=== PATIENT | female | born 1950 | race Caucasian/White ===

== ENCOUNTER 2024-09-05 17:31 | Emergency (ER) | payer MEDICARE, SELFPAY ==
--- NOTE | 2024-09-05 17:52 | PD.EDSKIN ---
ED Skin Abcess FB-RME/HPI General Chief complaint: Skin/Abscess/Foreign Body Stated complaint: STAPLED LEFT INDEX FINGER Time Seen by Provider: 09/05/24 17:45 Arrival date/time: 09/05/24 17:31 74-year-old female presents the emergency from today stating that she was putting up [place] decorations and accidentally stapled her left index finger Limitations: no limitations Related Data Home Medications ?Medication ?Instructions ?Recorded ?Confirmed dronedarone 400 mg tablet (Multaq) 400 mg PO BID ##0 11/19/16 05/12/21 metoprolol succinate 25 mg 75 mg PO QDAY ##0 11/19/16 05/12/21 tablet,extended release 24 hr (Toprol XL) omeprazole 40 mg capsule,delayed 40 mg PO QDAY ##0 11/19/16 05/12/21 release dexlansoprazole 60 mg 60 mg PO QDAY 02/29/20 05/12/21 capsule,biphase delayed release (Dexilant) ferrous sulfate 325 mg (65 mg 325 mg PO QDAY 02/29/20 05/12/21 iron) tablet amlodipine 5 mg-olmesartan 40 mg 1 tab PO QDAY 04/03/21 05/12/21 tablet (Arthur) rivaroxaban 20 mg tablet (Xarelto) 20 mg PO QDAY 04/03/21 05/12/21 hydralazine 100 mg tablet 100 mg PO DAILY 05/12/21 05/12/21 Previous Rx's ?Medication ?Instructions ?Recorded doxycycline hyclate 100 mg tablet 100 mg PO BID #14 tabs 09/05/24 Allergies Allergy/AdvReac Type Severity Reaction Status Date / Time chlorhexidine Allergy Severe HIVES Verified 09/05/24 17:32 erythromycin base Allergy Severe HIVES Verified 09/05/24 17:32 levofloxacin [From Levaquin] Allergy Severe Redness of Verified 09/05/24 17:32 Skin Penicillins Allergy Severe SWELLING Verified 09/05/24 17:32 Sulfa (Sulfonamide Allergy Severe HIVES, Verified 09/05/24 17:32 Antibiotics) SWELLING Review of Systems Review of Systems Systems Reviewed: All systems reviewed, normal except as documented Constitutional Constitutional: Reports system reviewed and no additional complaints, except as documented, Denies fever(s) and Denies headache(s) Eyes Eyes: Reports system reviewed and no additional complaints, except as documented and Denies blurry vision ENT Ears, Nose, Mouth, and Throat: Reports system reviewed and no additional complaints, except as documented, Denies headache(s), Denies nasal congestion and Denies nasal discharge Cardiovascular Cardiovascular: Reports system reviewed and no additional complaints, except as documented, Denies chest pain and Denies dyspnea Respiratory Respiratory: Reports system reviewed and no additional complaints, except as documented, Denies chest congestion, Denies cough and Denies dyspnea Gastrointestinal Gastrointestinal: Reports system reviewed and no additional complaints, except as documented and Denies abdominal pain Integumentary/Breasts Skin/Breast: Reports system reviewed and no additional complaints, except as documented, Denies rash and Reports wounds (Puncture wound left index finger) Neurologic Neurologic: Reports system reviewed and no additional complaints, except as documented, Reports as per HPI and Denies headache(s) Past Medical History Past Medical History NEUROLOGIC: Negative Neurological Disorders CARDIAC: Negative Cardiac Disorders ED Exam General Limitations: Present no limitations General appearance: Present alert and in no apparent distress Head Head exam: Present atraumatic Eye Eye exam: Present normal appearance, PERRL and EOMI ENT ENT exam: Present normal exam, normal oropharynx and mucous membranes moist Neck Neck exam: Present normal inspection, full ROM and trachea midline Chest Chest inspection: Present normal inspection and symmetric chest wall rise Respiratory Respiratory exam: Present normal lung sounds bilaterally Cardiovascular Cardiovascular exam: Present regular rate, normal rhythm and normal heart sounds Abdominal Exam Abdominal exam: Present soft and normal bowel sounds Extremities Exam Extremities exam: Present full ROM, tenderness and other (Puncture wound left index finger) Back Exam Back exam: Present normal inspection and full ROM Neurological Exam Neurological exam: Present alert, oriented X3 and CN II-XII intact Psychiatric Psychiatric exam: Present normal affect and normal mood Skin Skin exam: Present warm, dry and mottled (Puncture wound left index finger) Course Quality Measures none Orders Category Date Time Status Wound Care NOW Care 09/05/24 17:52 Active Tet,Diphth,Pertuss(Acell)-Tdap [Boostrix Vacc] Med 09/05/24 17:52 Discontinued 0.5 ml IMI .ONCE ONE Vital Signs Vital signs: Vital Signs Temperature 97.8 F 09/05/24 17:57 Pulse Rate 60 09/05/24 17:57 Respiratory Rate 18 09/05/24 17:57 Blood Pressure 144/84 H 09/05/24 17:57 Pulse Oximetry (%) 99 09/05/24 17:57 Oxygen Delivery Method Room Air 09/05/24 17:57 O2 saturation 99% room air within normal limits Skin / Abscess / Foreign Body MDM Narrative MDM Narrative:: 74-year-old female presents the emergency from today stating that she was putting up [place] decorations and accidentally stapled her left index finger On exam patient has a stable left index finger palmar aspect Stable removed in its entirety Patient is full range of motion of digit Patient's tetanus updated Patient discharged home in no distress to follow-up with primary care doctor in the next 24 to 48 hours and for any worsening symptoms to return to the ER immediately Patient data External records reviewed:: [facility] previous records Clinical information provided by:: patient Social determinants that could affect healthcare access:: none Patient has the following chronic illnesses:: None How is presenting disease/condition affected by chronic disease/condition?: no chronic disease Evaluation data The following diagnostics were reviewed and interpreted by me:: other (specify) (N/A) Lab and/or radiology exams considered but not ordered:: Consider not ordered Interpretation Summary: N/A Medications / Prescriptions Medications or Prescriptions considered but not ordered:: Given Medication administrations:: Medication Administration History Discontinued Medications Diphtheria/Tetanus/Acell Pertussis (Diphth,Pertuss(Acell),Tet Vac 0.5 Ml Vial) 0.5 ml IMi .ONCE ONE Stop: 09/05/24 17:53 Last Admin: 09/05/24 18:03 Dose: 0.5 ml Documented By: OA Given Consultations Consultation(s) initiated? (list below): No Diagnosis Skin/Abscess Differential Diagnosis: abscess of skin or subcutaneous tissue and cellulitis Most likely diagnosis given after review of the tests above:: Puncture wound finger Admission Indicated Admission indicated?: not indicated Admission Request Was there a request for admission?: No Disposition Plan Disposition Plan: Discharge Discharge Attestation Discharge Attestation: The patient and all family members were given an opportunity to ask questions and understood the discharge instructions. Discharge instructions specifically effects, indications for sooner follow up or return to the emergency department, and the expected course of current diagnosis. Patient condition: Stable Discharge Plan Plan Patient Disposition: HOME (Self Care) Disposition Comment: Stable Prescriptions/Referrals Prescriptions/Med Rec: New doxycycline hyclate 100 mg tablet 100 mg PO BID Qty: 14 0RF No Action omeprazole 40 MG capsule,delayed release(DR/EC) 40 mg PO QDAY Qty: 0 metoprolol succinate [Toprol XL] 25 MG tablet extended release 24 hr 75 mg PO QDAY Qty: 0 Multaq 400 MG tablet 400 mg PO BID Qty: 0 hydralazine 100 mg tablet 100 mg PO DAILY Patient Comments: TAKE 1 TABLET BY MOUTH TWICE A DAY WITH FOOD ferrous sulfate 325 mg (65 mg iron) Tablet 325 mg PO QDAY Dexilant 60 mg Capsule,Biphase Delayed Releas 60 mg PO QDAY amlodipine-olmesartan [Arthur] 5-40 mg Tablet 1 tab PO QDAY Xarelto 20 mg Tablet 20 mg PO QDAY Hold Instructions: Resume on 05/14/21. 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
[2024-09-05 17:57] VITALS: BP 144/84; PULSE 60; RESP 18; TEMP 36.6; O2SAT 99; BMI 38.2
[2024-09-05] MEDS: DIPHTH,PERTUSS(ACELL),TET VAC 0.5 ML VIAL IMi (18:03)
== END 2024-09-05 18:59 | disposition home or self-care (01) ==
LOC: SERX 18:06
PROVIDERS: Emergency Provider Emergency Medicine; PCP Family Medicine
DX: S61.231A Puncture wound without foreign body of left index finger without damage to nail, initial encounter (principal); W26.8XXA Contact with other sharp object(s), not elsewhere classified, initial encounter; Y93.89 Activity, other specified; Z23 Encounter for immunization
CPT/HCPCS: 90471; 90715; 99282

== ENCOUNTER → 2024-09-13 | Outpatient (CLI) | payer MEDICARE, SELFPAY ==
[2024-09-13 09:02] LABS: Basophils % (Auto) 0 % (0-2.5); Eosinophils # (Auto) 0.2 Thou/mm3 (0.0-0.5); Eosinophils % (Auto) 4 % (0-10); Hematocrit 35.9 % (36.0-46.0); Hemoglobin 12.2 g/dL (12.0-16.0); Immature Granulocytes % (Auto) 0 % (0-0); Immature Granulocytes Auto 0.03 Thou/mm3 (0.00-0.00); Lymphocytes # (Auto) 1.3 Thou/mm3 (1.0-4.8); Lymphocytes % (Auto) 19 % (10-50); Mean Corpuscular Hemoglobin 29.5 pg (25.0-35.0); Mean Corpuscular Volume 87 fL (80-100); Monocytes # (Auto) 0.5 Thou/mm3 (0.0-0.8); Monocytes % (Auto) 7 % (0-12); Neutrophils # (Auto) 4.7 Thou/mm3 (1.8-7.7); Neutrophils % (Auto) 70 % (37-80); Nucleated Red Blood Cell % 0 /100 WBC (0); Platelet Count 210 Thou/mm3 (140-440); RDW Standard Deviation 42.9 fL (36.4-46.3); Red Blood Count 4.13 Miln/mm3 (4.00-5.20); White Blood Count 6.8 Thou/mm3 (3.6-11.0)
[2024-09-13 09:31] LABS: Parathyroid Hormone Intact 79.4 pg/ml (18.5-88.0)
[2024-09-13 09:33] LABS: Alanine Aminotransferase 15 U/L (10-49); Albumin, Serum 4.8 gm/dL (3.4-4.8); Albumin/Globulin Ratio 2.3 (1.2-2.2); Alkaline Phosphatase 77 U/L (46-116); Anion Gap 6 (7-16); Aspartate Amino Transferase 10 U/L (0-34); BUN/Creatinine Ratio 19 Ratio (12-20); Bilirubin,Total 0.3 mg/dL (0.3-1.2); Blood Urea Nitrogen 23 mg/dL (9-23); Calcium 10.1 mg/dL (8.3-10.6); Calcium (Corrected) 10.1 mg/dL (8.5-10.1); Carbon Dioxide 26.2 mMol/L (20.0-31.0); Cardiac Risk Estimate 4.6 RATIO (3.7-5.6); Chloride 108 mMol/L (98-107); Cholesterol 174 mg/dL (132-200); Creatinine (Component) 1.2 mg/dL (0.6-1.3); Globulin 2.1 gm/dL (2.3-3.5); Glucose 113 mg/dL (74-106); HDL Cholesterol 38 mg/dL (40-60); LDL Cholesterol,Calculated 112 mg/dL (0-130); Osmolality,Calculated 284 (275-295); Potassium 4.8 mMol/L (3.4-5.1); Sodium 140 mMol/L (136-145); Total Protein 6.9 gm/dL (5.7-8.2); Triglycerides 119 mg/dL (30-150); eGFR 47 See Note
[2024-09-13 09:49] LABS: Collection Type, Urine Clean Catch
[2024-09-13 10:25] LABS: Bacteria,Urine Rare; Bilirubin,Urine Negative (Negative); Blood,Urine Negative (Negative); Clarity,Urine Clear (Clear/Hazy); Color,Urine Lt-Yellow (Lt Yel-Yel); Glucose, Urine Negative (Negative); Ketones,Urine Negative (Negative); Leukocyte Esterase,Urine Negative (Negative); Nitrite,Urine Negative (Negative); Protein,Urine Negative (Neg - Trace); RBC,Urine 2 /hpf (0-3); Specific Gravity,Urine 1.015 (1.001-1.035); Squamous Epithelial Cell,Urine < 1 /hpf (0-5); Urobilinogen,Urine Negative mg/dL (0.0-1.0); WBC,Urine 2 /hpf (0-5)
[2024-09-13 10:36] LABS: Creatinine MALB Rnd Ur 68 mg/dL (30-125); Microalbumin, Random Urine < 3 mg/L (0-300)
== END | disposition home or self-care (01) ==
LOC: COPL 08:12
PROVIDERS: PCP Family Medicine; Referring Provider Internal Medicine; Visit Provider Internal Medicine
DX: I12.9 Hypertensive chronic kidney disease with stage 1 through stage 4 chronic kidney disease, or unspecified chronic kidney disease (principal); N18.30 Chronic kidney disease, stage 3 unspecified; E78.5 Hyperlipidemia, unspecified
CPT/HCPCS: 36415; 80053; 80061; 81001; 82043; 82570; 83970; 85025

== ENCOUNTER → 2024-09-21 | Outpatient (CLI) | payer MEDICARE, SELFPAY ==
--- NOTE | 2024-09-21 14:46 | XR_ITS ---
Examination: PA lateral chest 2 views TECHNIQUE: Upright PA lateral chest 2 views Exam date and time: September 21, 2024 1455 hours INDICATIONS: Chest pain today FINDINGS: Accentuation basilar bronchovascular markings Normal heart size No pneumonia or pulmonary edema IMPRESSION: Basilar bronchitis pattern
== END | disposition home or self-care (01) ==
LOC: SDIM 14:31
PROVIDERS: PCP Family Medicine; Referring Provider Nurse Practitioner Family; Visit Provider Nurse Practitioner Family
DX: R07.9 Chest pain, unspecified (principal)
CPT/HCPCS: 71046

== ENCOUNTER → 2024-11-27 | Outpatient (CLI) | payer MEDICARE, SELFPAY ==
--- NOTE | 2024-11-27 14:58 | XR_ITS ---
Examination: Duplex scan of the lower extremity, unilateral right complete Date and time of exam: November 27, 2024 1552 hrs. Indications: Right leg pain beginning one month ago, history acute thrombus right distal superficial femoral vein on venous Doppler July 12, 2024, patient is anticoagulated Technique: Duplex scan of the extremity veins using B-mode/grayscale imaging and Doppler spectral analysis and color flow Attention is directed to internal echogenicity, compression and augmentation involving these veins, color flow assessment, spectral analysis Findings: Major deep venous structures in the extremity demonstrate normal course and caliber. There is no evidence of deep vein thrombosis. Normal color flow and spectral analysis Popliteal cyst 31 mm Impression: Negative for DVT..
== END | disposition home or self-care (01) ==
PROVIDERS: PCP Family Medicine; Referring Provider Family Medicine; Visit Provider Family Medicine
DX: I82.411 Acute embolism and thrombosis of right femoral vein (principal)
CPT/HCPCS: 93971

== ENCOUNTER → 2024-12-10 | Outpatient (CLI) | payer MEDICARE, SELFPAY ==
--- NOTE | 2024-12-10 17:03 | XR_ITS ---
Examination: PA lateral chest 2 views Technique: Upright PA lateral chest 2 views Exam date and time: December 10, 2024 1610 hrs. Indications: Chest pain several days. Findings: Normal heart size Mild to moderate central vascular congestion No lobar pneumonia or pulmonary edema Impression: Mild to moderate central vascular congestion
--- NOTE | 2024-12-10 17:03 | XR_ITS ---
Examination: Thoracic spine 3 views Technique one AP lateral coned lateral upper dorsal spine 3 views Exam date and time: December 10, 2024 1610 hrs. Indications: Back pain years. Findings: Moderate diffuse thoracic degenerative disc disease No fracture Prominent thoracic spondylosis Impression: Moderate diffuse thoracic degenerative disc disease
--- NOTE | 2024-12-10 17:03 | XR_ITS ---
EXAMINATION: Cervical spine, 5 views Technique: Cervical spine AP, AP odontoid, lateral, bilateral obliques, 5 views Exam date and time: December 10, 2024 at 1610 hrs. Indications: Neck pain years. Findings: Adequate alignment cervical vertebral bodies No cervical fracture Moderate degenerative disc disease C2-C7 with mild diffuse bilateral neural foraminal stenosis Intact odontoid Impression: Moderate diffuse cervical degenerative disc disease
== END | disposition home or self-care (01) ==
LOC: SDIM 16:51
PROVIDERS: PCP Family Medicine; Referring Provider Family Medicine; Visit Provider Family Medicine
DX: M51.34 Other intervertebral disc degeneration, thoracic region (principal); R09.89 Other specified symptoms and signs involving the circulatory and respiratory systems; M50.30 Other cervical disc degeneration, unspecified cervical region
CPT/HCPCS: 71046; 72050; 72072

== ENCOUNTER 2024-12-21 11:13 | Inpatient (IN) | payer MEDICARE, SELFPAY ==
[2024-12-21] VITALS (13 sets, daily range): BP systolic 117–195; BP diastolic 86–125; PULSE 95–155; RESP 16–21; TEMP 36.6–37.3; O2SAT 91–96; BMI 38.2
--- NOTE | 2024-12-21 11:42 | XR_ITS ---
Examination: AP chest single view Technique one AP portable upright chest single view Exam date and time: 22/10/2024 1152 hours Comparison December 10, 2024 INDICATIONS: Chest pain today. FINDINGS: Normal heart size. Lungs are clear. The osseous structures are intact IMPRESSION: No active disease
--- NOTE | 2024-12-21 11:43 | PD.EDRME ---
Rapid Medical Screening Exam RME Arrival date/time: 12/21/24 11:13 74-year-old female history of A-fib hypertension, DVT presents to the ER with complaints of palpitations. I have greeted and performed a focused initial assessment of this patient. Initial appropriate labs ordered at this time. A comprehensive ED assessment and evaluation of the patient and analysis of all test and completion of medical decision making process will be conducted by additional ED provider. Chief Complaint: Arrhythmia/Palpitations Time Seen by Provider: 12/21/24 11:37 Vital signs: Vital Signs Temperature 98.2 F 12/21/24 11:35 Pulse Rate 131 H 12/21/24 11:35 Respiratory Rate 19 12/21/24 11:35 Blood Pressure 126/87 H 12/21/24 11:35 Pulse Oximetry (%) 95 12/21/24 11:35 Oxygen Delivery Method Room Air 12/21/24 11:35
[2024-12-21 12:22] LABS: Basophils % (Auto) 0 % (0-2.5); Eosinophils # (Auto) 0.1 Thou/mm3 (0.0-0.5); Eosinophils % (Auto) 1 % (0-10); Hematocrit 35.6 % (36.0-46.0); Hemoglobin 11.8 g/dL (12.0-16.0); Immature Granulocytes % (Auto) 0 % (0-0); Immature Granulocytes Auto 0.04 Thou/mm3 (0.00-0.00); Lymphocytes # (Auto) 1.4 Thou/mm3 (1.0-4.8); Lymphocytes % (Auto) 15 % (10-50); Mean Corpuscular HGB Conc 33.1 g/dl (31.0-37.0); Mean Corpuscular Hemoglobin 28.9 pg (25.0-35.0); Mean Corpuscular Volume 87 fL (80-100); Monocytes % (Auto) 10 % (0-12); Neutrophils # (Auto) 7.1 Thou/mm3 (1.8-7.7); Neutrophils % (Auto) 73 % (37-80); Nucleated Red Blood Cell % 0 /100 WBC (0); Platelet Count 174 Thou/mm3 (140-440); RDW Standard Deviation 43.3 fL (36.4-46.3); Red Blood Count 4.09 Miln/mm3 (4.00-5.20); White Blood Count 9.6 Thou/mm3 (3.6-11.0)
[2024-12-21 12:35] LABS: Prothrombin Time 11.4 Seconds (9.0-12.2)
[2024-12-21 12:40] LABS: B-Type Natriuretic Peptide 158 pg/mL (0-100)
--- NOTE | 2024-12-21 12:42 | XR_ITS ---
Examination: Duplex scan of the lower extremity, unilateral right complete Date and time of exam: December 21, 2024 1451 hours INDICATIONS: Right leg swelling and pain beginning one week ago Technique: Duplex scan of the extremity veins using B-mode/grayscale imaging and Doppler spectral analysis and color flow Attention is directed to internal echogenicity, compression and augmentation involving these veins, color flow assessment, spectral analysis Findings: Major deep venous structures in the extremity demonstrate normal course and caliber. There is no evidence of deep vein thrombosis. Normal color flow and spectral analysis Impression: Negative for DVT.. Small cystic areas in the mid medial thigh 18 x 22 mm, 27 x 24 mm, clinical correlation advised
--- NOTE | 2024-12-21 12:45 | PD.EDADULT ---
ED General RME/HPI General Chief complaint: Arrhythmia/Palpitations Stated complaint: SENT FOR HIGH HR Time Seen by Provider: 12/21/24 11:37 Arrival date/time: 12/21/24 11:13 RME / HPI RME / HPI narrative: Patient is a 74 years old female with past medical history of A-fib on Eliquis, hypertension, DVT, recent diagnosis of cellulitis presented to the ED complaining of palpitations. She reports she woke up today feeling her heart racing. She denies any chest pain, shortness of breath, abdominal pain, fever, chills, nausea, vomiting. She reports she has chronic A-fib and is on Eliquis and metoprolol, reports never had similar symptoms before. Patient was diagnosed with cellulitis of inner thigh yesterday but did not start antibiotics yet. She also reports she had DVT over the same area recently. Related Data Home Medications ?Medication ?Instructions ?Recorded ?Confirmed dronedarone 400 mg tablet (Multaq) 400 mg PO BID ##0 11/19/16 05/12/21 metoprolol succinate 25 mg 75 mg PO QDAY ##0 11/19/16 05/12/21 tablet,extended release 24 hr (Toprol XL) omeprazole 40 mg capsule,delayed 40 mg PO QDAY ##0 11/19/16 05/12/21 release dexlansoprazole 60 mg 60 mg PO QDAY 02/29/20 05/12/21 capsule,biphase delayed release (Dexilant) ferrous sulfate 325 mg (65 mg 325 mg PO QDAY 02/29/20 05/12/21 iron) tablet amlodipine 5 mg-olmesartan 40 mg 1 tab PO QDAY 04/03/21 05/12/21 tablet (Arthur) rivaroxaban 20 mg tablet (Xarelto) 20 mg PO QDAY 04/03/21 05/12/21 Held on 05/13/21. Instructions: Resume on 05/14/21. Resume Xarelto tomorrow hydralazine 100 mg tablet 100 mg PO DAILY 05/12/21 05/12/21 Previous Rx's ?Medication ?Instructions ?Recorded doxycycline hyclate 100 mg tablet 100 mg PO BID #14 tabs 09/05/24 Allergies Allergy/AdvReac Type Severity Reaction Status Date / Time chlorhexidine Allergy Severe HIVES Verified 12/21/24 11:16 erythromycin base Allergy Severe HIVES Verified 12/21/24 11:16 levofloxacin (From Levaquin) Allergy Severe Redness of Verified 12/21/24 11:16 Skin Penicillins Allergy Severe SWELLING Verified 12/21/24 11:16 Sulfa (Sulfonamide Allergy Severe HIVES, Verified 12/21/24 11:16 Antibiotics) SWELLING Review of Systems Review of Systems Systems Reviewed: All systems reviewed, normal except as documented ED Exam Narrative Physical exam: Gen: Well-developed and well-nourished female. HEENT: NCAT, PERRLA, EOMI, MMM, anicteric conjunctivae. CVS: normal S1 and S2. Irregularly irregular. No M/R/G. Resp: CTA B/L. No rhonchi, rales, crackles or wheezing. Abd: soft, obese, non-tender, non-distended. BS+ in all 4 quadrants. MSK: Good ROM in BUE & BLE. No edema or rash. Varicose veins over BLE. 5x5 cm hyperemic area over right inner thigh, tender to touch. Neuro: CN II-XII grossly intact. Strength 5/5 in BUE & BLE. Alert and oriented x3. Psych: appropriate mood and affect. Course Course Course Narrative: 1300: diltiazem 25 mg IV. Still Afib RVR, rate decreased to 140s. 1430: diltiazem 15 mg IV. Afib RVR at the rate 130s. 1500: diltiazem drip 10 mg/hr, non-titratable. Decision to admit. Quality Measures none Orders Category Date Time Status COVID-19 Screening Questionnaire NOW Care 12/21/24 14:31 Active [employer]er STAT Care 12/21/24 11:42 Active Decision to Admit X1 Care 12/21/24 14:31 Completed EKG (ED ONLY) *Do not use* NOW Care 12/21/24 11:42 Completed Insert IV STAT Care 12/21/24 11:42 Active EKG (ED Only) Stat Exams 12/21/24 11:42 Ordered US venous doppler LE RT Stat Exams 12/21/24 12:42 Completed XR chest 1V portable Stat Exams 12/21/24 11:42 Completed B-Type Natriuretic Peptide Stat Lab 12/21/24 12:14 Completed CBC Stat Lab 12/21/24 12:14 Completed Comprehensive Metabolic Panel Stat Lab 12/21/24 12:14 Completed Lipase Stat Lab 12/21/24 12:14 Completed Magnesium Stat Lab 12/21/24 12:14 Completed Prothrombin Time with INR Stat Lab 12/21/24 12:14 Completed Troponin I Stat Lab 12/21/24 12:14 Completed DILTIAZEM in D5W 125 MG Med 12/21/24 13:30 Active 125 mg in 125 ml IV 10 mg/hr Diltiazem Inj [Cardizem Inj] Med 12/21/24 13:23 Discontinued 15 mg IV X1 ONE Diltiazem Inj [Cardizem Inj] Med 12/21/24 12:42 Discontinued 25 mg IV X1 ONE Morphine Inj Med 12/21/24 13:46 Discontinued 2 mg IVP X1 ONE Vital Signs Vital signs: Vital Signs Temperature 98.2 F 12/21/24 11:35 Pulse Rate 131 H 12/21/24 11:35 Respiratory Rate 19 12/21/24 11:35 Blood Pressure 126/87 H 12/21/24 11:35 Pulse Oximetry (%) 95 12/21/24 11:35 Oxygen Delivery Method Room Air 12/21/24 11:35 Procedures -ED EKG Interpretation #1: Date of EK12/21/24 Time of EK:41 Rate: 160 Interpretation: Reviewed by me EKG Impression: Atrial fibrillation (RVR) and Non-specific ST-T MDM Patient data External records reviewed:: [facility] previous records Clinical information provided by:: patient and family Social determinants that could affect healthcare access:: none Patient has the following chronic illnesses:: A-fib on Eliquis, hypertension, DVT, recent diagnosis of cellulitis How is presenting disease/condition affected by chronic disease/condition?: caused by Evaluation data The following diagnostics were reviewed and interpreted by me:: lab results, radiology exam(s) and EKG tracing(s) Lab and/or radiology exams considered but not ordered:: CTA Interpretation Summary: Afib RVR Medications Medications considered but not ordered:: heparin drip Medication administrations:: Medication Administration History Acetaminophen (Acetaminophen 325 Mg Tablet) 650 mg PO Q6H PRN PRN Reason: Pain 1-3 and/or Fever >100.1 Stop: 01/20/25 14:59 Apixaban (Apixaban 2.5 Mg Tablet) 5 mg PO BID [facility] Stop: 01/20/25 20:59 Doxycycline Hyclate (Doxycycline 100 Mg Tablet) 100 mg PO BID [facility] Stop: 12/28/24 20:59 Diltiazem HCl (Diltiazem In D5w 125 Mg) 125 mg in 125 mls @ 10 mls/hr IV .[id number] [facility] Stop: 01/20/25 13:29 Last Admin: 12/21/24 14:40 Dose: 10 mg/hr, 10 mls/hr Documented By: STEVEN Ceftriaxone Sodium/Dextrose (Rocephin/D5w 1gm Iv Premix) 1 gm in 50 mls @ 100 mls/hr IV QDAY [facility] Stop: 12/28/24 15:10 Last Admin: 12/21/24 15:56 Dose: 100 mls/hr Documented By: STEVEN Ondansetron HCl (Ondansetron Inj 2 Mg/Ml Inj 2 Ml) 4 mg IV Q6H PRN; Protocol PRN Reason: NAUSEA OR VOMITING Stop: 01/20/25 14:59 Sennosides (Senna Tablet) 1 tab PO QDAY PRN; Protocol PRN Reason: constipation Stop: 01/20/25 14:59 Discontinued Medications Diltiazem HCl (Diltiazem Inj 5 Mg/Ml Vial 5 Ml) 25 mg IV X1 ONE Stop: 12/21/24 12:43 Last Admin: 12/21/24 13:01 Dose: 25 mg Documented By: SELVIN Comments: TO 18G IV TO RIGHT UPPER ARM Diltiazem HCl (Diltiazem Inj 5 Mg/Ml Vial 5 Ml) 15 mg IV X1 ONE Stop: 12/21/24 13:24 Last Admin: 12/21/24 14:28 Dose: 15 mg Documented By: STEVEN Hydromorphone HCl (Hydromorphone Inj 2 Mg/Ml Vial) 1 mg IVP X1 ONE Stop: 12/21/24 15:09 Last Admin: 12/21/24 15:12 Dose: Not Given Documented By: STEVEN Non-Admin Reason: Cancelled by Provider Hydromorphone HCl (Hydromorphone Inj 2 Mg/Ml Vial) 0.5 mg IVP X1 ONE Stop: 12/21/24 15:16 Last Admin: 12/21/24 15:30 Dose: Not Given Documented By: STEVEN Non-Admin Reason: Patient Refused Morphine Sulfate (Morphine Sulf Inj 10 Mg/Ml Vial) 2 mg IVP X1 ONE Stop: 12/21/24 13:47 Last Admin: 12/21/24 14:28 Dose: 2 mg Documented By: STEVEN Morphine Sulfate (Morphine Sulf Inj 10 Mg/Ml Vial) 2 mg IVP X1 ONE Stop: 12/21/24 16:03 Last Admin: 12/21/24 16:43 Dose: 2 mg Documented By: STEVEN as above Consultations Consultation(s) initiated? (list below): No Diagnosis Differential Diagnosis ED Complaint MDM: Afib RVR, SVT, Atrial flutter Most likely diagnosis given after review of the tests above:: Afib RVR Admission Indicated Admission indicated?: indicated Explain why admission is indicated or not indicated:: Patient was given 2 doses of diltiazem but did not convert to sinus rhythm or slow down heart rate, therefore was started on diltiazem drip none titratable. She will need to be admitted for further workup. Admission Request Was there a request for admission?: Yes Admission Attestation Admission request attestation: Discussed case with [] from Hospitalist service regarding admission. Discussed patients ED course, exam findings, labs, and radiology results. The Hospitalist [agrees,declines] to accept the patient for admission. Disposition Plan Disposition Plan: Admit Medical Decision Making MDM Narrative MDM Narrative: The patient is a 74-year-old female with a history of atrial fibrillation (chronic, on Eliquis), hypertension, recent DVT, and a new diagnosis of cellulitis who presented with palpitations and a racing heart upon waking. She has no prior episodes of similar symptoms despite her chronic A-fib. Grubbs findings include an EKG demonstrating atrial fibrillation with rapid ventricular response (RVR) at a rate of 160 bpm. Physical examination revealed an irregularly irregular rhythm, and a hyperemic, tender 5x5 cm area on the inner right thigh, consistent with cellulitis vs DVT. There is no evidence of respiratory distress, edema, or other concerning findings on exam. Patient has failed to convert or slow down after diltiazem IV x1 and was started on diltiazem drip 10 mg/hr. RLE US was ordered to rule out DVT. Differential Diagnosis Differential Diagnosis: Afib RVR, SVT, Atrial flutter Lab Data 12/21/24 12:14 12/21/24 12:14 Labs: Lab Results 12/21/24 Range/Units 12:14 WBC 9.6 (3.6-11.0) Thou/mm3 RBC 4.09 (4.00-5.20) Miln/mm3 Hgb 11.8 L (12.0-16.0) g/dL Hct 35.6 L (36.0-46.0) % MCV 87 (80-100) fL MCH 28.9 (25.0-35.0) pg MCHC 33.1 (31.0-37.0) g/dl RDW Std Deviation 43.3 (36.4-46.3) fL Plt Count 174 (140-440) Thou/mm3 Neut % (Auto) 73 (37-80) % Lymph % (Auto) 15 (10-50) % [place] % (Auto) 10 (0-12) % Eos % (Auto) 1 (0-10) % Baso % (Auto) 0 (0-2.5) % Neut # (Auto) 7.1 (1.8-7.7) Thou/mm3 Lymph # (Auto) 1.4 (1.0-4.8) Thou/mm3 [place] # (Auto) 1.0 H (0.0-0.8) Thou/mm3 Eos # (Auto) 0.1 (0.0-0.5) Thou/mm3 Baso # (Auto) 0.0 (0.0-0.2) Thou/mm3 Immature Gran # (Auto) 0.04 H (0.00-0.00) Thou/mm3 Absolute Nucleated RBC 0.00 (0.00-0.00) Thou/mm3 Immature Gran % 0 (0-0) % Nucleated RBC % 0 (0) /100 WBC PT 11.4 (9.0-12.2) Seconds INR 1.0 (0.9-1.3) Sodium 138 (136-145) mMol/L Potassium 4.2 (3.4-5.1) mMol/L Chloride 104 (98-107) mMol/L Carbon Dioxide 24.3 (20.0-31.0) mMol/L Anion Gap 10 (7-16) BUN 23 (9-23) mg/dL Creatinine 1.3 (0.6-1.3) mg/dL Estim Creat Clear Calc 44.8 L (>60) mL/min eGFR 43 L (60 - ) See Note BUN/Creatinine Ratio 18 (12-20) Ratio Glucose 131 H (74-106) mg/dL Calculated Osmolality 281 (275-295) Calcium 9.3 (8.3-10.6) mg/dL Corrected Calcium 9.3 (8.5-10.1) mg/dL Magnesium 2.1 (1.6-2.6) mg/dL Total Bilirubin 0.9 (0.3-1.2) mg/dL AST 12 (0-34) U/L ALT 10 (10-49) U/L Alkaline Phosphatase 69 (46-116) U/L Troponin I < 0.020 (0.0-0.045) ng/mL B-Natriuretic Peptide 158 H (0-100) pg/mL Total Protein 6.9 (5.7-8.2) gm/dL Albumin 4.4 (3.4-4.8) gm/dL Globulin 2.5 (2.3-3.5) gm/dL Albumin/Globulin Ratio 1.8 (1.2-2.2) Lipase 35 (12-53) U/L Critical Care Time Critical Care Time Critical Care Time: Yes Total Critical Care Time (min.): 45 Attestation: The high probability of sudden, clinically significant deterioration in the patient?s condition required the highest level of my preparedness to intervene urgently. The services I provided to this patient were to treat and/or prevent clinically significant deterioration. Services included the following: chart data review, reviewing nursing notes and/or old charts, documentation time, sap treasury consultant collaboration regarding findings and treatment options, medication orders and management, direct patient care, vital sign assessments and ordering, interpreting and reviewing diagnostic studies and lab tests. Aggregate critical care time includes only time during which I was engaged in work directly related to the patient?s care, as described above, whether at bedside or elsewhere in the Emergency Department. It did not include time spent performing other reported procedures or the services of residents, students, nurses or physician assistants. Discharge Plan Plan Patient Disposition: Admit Acute Care w/in Hospital Problem List Clinical Impression: Atrial fibrillation with rapid ventricular response MD Attestation MD Attestation The patient was seen by the PGY-2. I, the co-signing physician, also encountered and examined the patient remaining present during the entire ER visit for consultation as needed. I agree with the plan and documentation.
[2024-12-21 12:53] LABS: Alanine Aminotransferase 10 U/L (10-49); Albumin, Serum 4.4 gm/dL (3.4-4.8); Albumin/Globulin Ratio 1.8 (1.2-2.2); Alkaline Phosphatase 69 U/L (46-116); Anion Gap 10 (7-16); Aspartate Amino Transferase 12 U/L (0-34); BUN/Creatinine Ratio 18 Ratio (12-20); Bilirubin,Total 0.9 mg/dL (0.3-1.2); Blood Urea Nitrogen 23 mg/dL (9-23); Calcium 9.3 mg/dL (8.3-10.6); Calcium (Corrected) 9.3 mg/dL (8.5-10.1); Carbon Dioxide 24.3 mMol/L (20.0-31.0); Chloride 104 mMol/L (98-107); Creatinine (Component) 1.3 mg/dL (0.6-1.3); Estimated Creatinine Clearance 44.8 mL/min (>60); Globulin 2.5 gm/dL (2.3-3.5); Glucose 131 mg/dL (74-106); Lipase 35 U/L (12-53); Magnesium 2.1 mg/dL (1.6-2.6); Osmolality,Calculated 281 (275-295); Potassium 4.2 mMol/L (3.4-5.1); Sodium 138 mMol/L (136-145); Total Protein 6.9 gm/dL (5.7-8.2); Troponin I < 0.020 ng/mL (0.0-0.045); eGFR 43 See Note
[2024-12-21] MEDS: DILTIAZEM INJ 5 MG/ML VIAL 5 ML 25 MG IV (13:01)
--- NOTE | 2024-12-21 13:47 | PC.NURSE ---
RECEIVED VERBAL ORDER FROM DR CARPENTER FOR 2MG MORPHINE IV TO PRE-MEDICATE PATIENT BEFORE ULTRASOUND OF LEG.
[2024-12-21] MEDS: MORPHINE SULF INJ 10 MG/ML VIAL 2 MG IVP ×2 (14:28→16:43)
[2024-12-21] MEDS: DILTIAZEM INJ 5 MG/ML VIAL 5 ML 15 MG IV (14:28)
[2024-12-21] MEDS: DILTIAZEM in D5W 125 MG 125 MG/125 ML BAG 10 MG IV (14:40)
--- NOTE | 2024-12-21 15:03 | PD.RESHP ---
Documentation for date of: 12/21/24 HPI History of Present Illness Chief complaint: Palpitations History of present illness: 74-year-old female with past medical history of chronic atrial fibrillation, hypertension, history of DVT (right lower extremity) presenting to the ED on 12/21 with an episode of palpitations. Patient states that around 10:30 AM on 12/21 while she was outside she started feeling a rapid heart rate. Patient denies being in a stressful situation at that time, denies any chest pain, shortness of breath but does state that she felt somewhat dizzy and nauseous during the episode. She apparently checked her heart rate at home with a monitor which showed heart rate of 210. Patient has never felt such sensation in the past but does follow cardiology Dr. Ramila Lindo and EP driller's assistant Dr. Castro. Patient was recently at [facility] about 2 days ago for right lower extremity erythema; moreover, she states that they did an ultrasound and it was negative for any DVT at that time. Patient was discharged with doxycycline and Keflex for cellulitis but recently just picked them up. Apparently, patient was going to follow-up with Dr. Lindo yesterday but upon finding out that the patient has cellulitis told her to go back to the emergency room. Medical history: As listed Surgical history: Hysterectomy 1992, tonsillectomy 1969, back surgery 2012, coronary angiogram 2013 Allergies: Chlorhexidine and erythromycin causes hives, levofloxacin causes redness of skin, penicillin swelling, sulfa hives/swelling Medications: Pending official med rec, patient on metoprolol succinate 50 mg, hydralazine 100 mg 3 times daily, Eliquis 5 mg p.o. twice daily Family history: Noncontributory Social history: Patient lives at home, denies any alcohol, tobacco or illicit drug use. ROS: All 12 systems assessed and the patient denies unless otherwise stated in HPI In the ED, patient presented hypertensive with blood pressure fluctuating from a systolic of 120s to 190s and heart rates of 131, respiratory rate 19, afebrile and saturating 94 on 1 to 2 L of oxygen. Pertinent lab findings included WBC 9.6, hemoglobin 11.8 with MCV of 87, magnesium of 2.1, troponin less than 0.020, BNP of 158, lipase 35. Chest x-ray showed no active disease. EKG showed A-fib with RVR but no concerning ST changes were noted. Patient will be admitted for A-fib with RVR on diltiazem drip and treatment for cellulitis with IV antibiotics. Exam Vital Signs Temp Pulse Resp BP Pulse Ox O2 Del Method 98.0 F 107 H 21 H 117/88 H 94 L Room Air 12/21/24 14:15 12/21/24 14:40 12/21/24 14:15 12/21/24 14:40 12/21/24 14:15 12/21/24 11:55 Narrative Exam Physical Exam: GENERAL: Awake, answering questions appropriately, appears stated age HEENT: NC/AT. Moist mucosa. PERRLA/EOMI. CARDIO: Irregularly irregular, no obvious murmurs, no JVD. PULM: No coughing or visible SOB. Lungs CTA B/L but appears to be on 1 to 2 L of nasal cannula GI: Abdomen soft, NT/ND, +BS. SKIN/MSK/EXT: Patient has a right inner thigh erythematous lesion which is acutely tender to palpation. No wounds/rashes/edema/amputations noted. +Pedal pulses present B/L. NEURO: Oriented x3, no focal neurologic deficits, moves extremities x 4 Results: Labs 12/22/24 04:29 12/22/24 04:29 Labs: Short CBC 12/21/24 Range/Units 12:14 WBC 9.6 (3.6-11.0) Thou/mm3 Hgb 11.8 L (12.0-16.0) g/dL Hct 35.6 L (36.0-46.0) % Plt Count 174 (140-440) Thou/mm3 BMP 12/21/24 12:14 Sodium 138 Potassium 4.2 Chloride 104 Carbon Dioxide 24.3 BUN 23 Creatinine 1.3 Glucose 131 H Calcium 9.3 Cardiac Enzymes 12/21/24 Range/Units 12:14 Troponin I < 0.020 (0.0-0.045) ng/mL Liver Function 12/21/24 Range/Units 12:14 Total Bilirubin 0.9 (0.3-1.2) mg/dL AST 12 (0-34) U/L ALT 10 (10-49) U/L Alkaline Phosphatase 69 (46-116) U/L Albumin 4.4 (3.4-4.8) gm/dL Quality Measures Quality Measures none Advance care planning discussed with:: patient Medications Home Medications and Allergies Home Medications ?Medication ?Instructions ?Recorded ?Confirmed ?Type dronedarone 400 mg tablet (Multaq) 400 mg PO BID ##0 11/19/16 12/21/24 History metoprolol succinate 25 mg 50 mg PO QDAY ##0 11/19/16 12/21/24 History tablet,extended release 24 hr (Toprol XL) omeprazole 40 mg capsule,delayed 40 mg PO QDAY ##0 11/19/16 05/12/21 History release dexlansoprazole 60 mg 60 mg PO QDAY 02/29/20 12/21/24 History capsule,biphase delayed release (Dexilant) ferrous sulfate 325 mg (65 mg 325 mg PO QDAY 02/29/20 05/12/21 History iron) tablet amlodipine 5 mg-olmesartan 40 mg 1 tab PO QDAY 04/03/21 12/21/24 History tablet (Arthur) rivaroxaban 20 mg tablet (Xarelto) 20 mg PO QDAY 04/03/21 05/12/21 History Held on 05/13/21. Instructions: Resume on 05/14/21. Resume Xarelto tomorrow hydralazine 100 mg tablet 100 mg PO BID 05/12/21 12/21/24 History apixaban 5 mg tablet (Eliquis) 5 mg PO BID 12/21/24 12/21/24 History Allergies Allergy/AdvReac Type Severity Reaction Status Date / Time chlorhexidine Allergy Severe HIVES Verified 12/21/24 11:16 erythromycin base Allergy Severe HIVES Verified 12/21/24 11:16 levofloxacin (From Levaquin) Allergy Severe Redness of Verified 12/21/24 11:16 Skin Penicillins Allergy Severe SWELLING Verified 12/21/24 11:16 Sulfa (Sulfonamide Allergy Severe HIVES, Verified 12/21/24 11:16 Antibiotics) SWELLING Visit Medications Acetaminophen (Acetaminophen 325 Mg Tablet) 650 mg PO Q6H PRN PRN Reason: Pain 1-3 and/or Fever >100.1 Stop: 01/20/25 14:59 Apixaban (Apixaban 2.5 Mg Tablet) 5 mg PO BID [facility] Stop: 01/20/25 20:59 Diltiazem HCl (Diltiazem In D5w 125 Mg) 125 mg in 125 mls @ 10 mls/hr IV .[id number] [facility] Stop: 01/20/25 13:29 Last Admin: 12/21/24 14:40 Dose: 10 mg/hr, 10 mls/hr Ondansetron HCl (Ondansetron Inj 2 Mg/Ml Inj 2 Ml) 4 mg IV Q6H PRN; Protocol PRN Reason: NAUSEA OR VOMITING Stop: 01/20/25 14:59 Sennosides (Senna Tablet) 1 tab PO QDAY PRN; Protocol PRN Reason: constipation Stop: 01/20/25 14:59 Discontinued Medications Diltiazem HCl (Diltiazem Inj 5 Mg/Ml Vial 5 Ml) 25 mg IV X1 ONE Stop: 12/21/24 12:43 Last Admin: 12/21/24 13:01 Dose: 25 mg Diltiazem HCl (Diltiazem Inj 5 Mg/Ml Vial 5 Ml) 15 mg IV X1 ONE Stop: 12/21/24 13:24 Last Admin: 12/21/24 14:28 Dose: 15 mg Morphine Sulfate (Morphine Sulf Inj 10 Mg/Ml Vial) 2 mg IVP X1 ONE Stop: 12/21/24 13:47 Last Admin: 12/21/24 14:28 Dose: 2 mg Assessment & Plan Plan 74-year-old female with past medical history of chronic atrial fibrillation, hypertension, history of DVT (right lower extremity) presenting to the ED on 12/21 with an episode of palpitations about will be admitted for A-fib with RVR on diltiazem drip and treatment for cellulitis with IV antibiotics. #A-fib RVR #Chronic atrial fibrillation Patient has history of atrial fibrillation, on home metoprolol succinate 50 mg daily and Eliquis 5 mg p.o. twice daily Patient follows with driller's assistant Dr. Ramila Lindo and EP driller's assistant Dr. Castro Per history, patient started developing palpitations and elevated heart rate sometime around 10:30 AM on 12/21 while she was outside her house Patient denies having any concerning cardiac symptoms such as chest pain, shortness of breath, but does state that she that she was dizzy and had some nausea In the ED, patient was confirmed to have A-fib RVR with EKG but was within normal limits and BNP was 138 Patient given a x 1 diltiazem 25 mg, followed by x 1 diltiazem 50 mg which did not convert her; thus decision was made to start diltiazem drip Plan: Telemetry monitoring Continue diltiazem drip Will transition to p.o. metoprolol succinate 100 mg once the patient converts to sinus rhythm Continue patient's home Eliquis 5 mg p.o. twice daily #Cellulitis of the right lower extremity #History of DVT Apparently, patient was at [facility] 2 days ago with right lower extremity erythema Duplex ultrasound was completed at [facility] which did not show any signs of DVT and the patient was discharged with Keflex 500 mg and doxycycline 100 mg p.o. twice daily Patient presenting with persistent right lower extremity erythema and acute tenderness on palpation X2 morphine 2mg IV for pain Repeat ultrasound ordered showed small cystic areas in the mid medial thigh 18 x 22 mm, 27 x 24 mm Plan: CT w/o contrast of R lower ext Started patient on IV ceftriaxone and p.o. Doxy 100 mg twice daily Blood cultures ordered #Hypertension Per med rec, patient is on hydralazine 100 mg 3 times daily along with the metoprolol succinate 50 mg daily for blood pressure control Patient's blood pressure is fluctuating secondary to the A-fib with RVR Plan: library monitor as above Will consider restarting hydralazine 100 mg 3 times daily if necessary Hospital Management: Lines: PIV Diet: Cardiac Bowel: Senna as needed GI prophylaxis: Not needed DVT prophylaxis: Eliquis 5 mg p.o. twice daily coverage Dispo: Observation; IV diltiazem drip for A-fib RVR and IV antibiotics for cellulitis treatment Code: Full Patient seen and assessed with attending Dr. Valerio and senior resident Dr. Paulina Sauceda, PGY-1 Attending Provider Attestation/Addendum I, Alanna Valerio, DO, attest that I was physically present for the pearl portions of the service and evaluated the patient with the resident and I reviewed and discussed the case with the resident and agree with the resident's findings and plans of care as documented above Patient is a 74-year-old female with past medical history of A-fib on Eliquis, hypertension, DVT last year who presented to the ED with complaint of palpitations. She was feeling tachycardic this morning and denied any chest pain or shortness of breath. However, she did feel lightheaded. Patient was recently seen at [facility] yesterday for cellulitis of her distal thigh. Patient was prescribed antibiotics, but had only picked up her prescription this morning when she started to feel the palpitations. Patient was subsequently brought to the ED during which she was found to have A-fib with RVR with heart rate in the 200s. Patient does follow cardiology in [place]. Ultrasound of lower extremity at [facility] revealed no evidence of DVT. Patient was placed on a Cardizem drip in the ED and currently running in the 140s to 150s. However, patient is undergoing another repeat ultrasound of the cellulitic region to rule out any abscess. Patient is in a lot of pain and distress due to the pressure of the ultrasound probe. Suspect that the A-fib with RVR is likely secondary to infection. Will admit patient to telemetry for A-fib with RVR and treat her cellulitis with IV antibiotics. Will follow-up with imaging. Will switch her home Eliquis to full dose Lovenox in the event that patient may need any interventions in the event that an abscess is found on imaging. Will consider consulting surgery if any collections are found. Patient reports subjective fever and chills.
--- NOTE | 2024-12-21 15:09 | PC.NURSE ---
PATIENT COMPLAINING OF SEVERE PAIN 9/10 DURING ULTRASOUND OF LEG. INFORMED ER PROVIDER AND RECEIVED VERBAL ORDER 0.5 MG HYDROMORPHONE IV.
[2024-12-21] MEDS: cefTRIAXone/D5w 1gm IV premix 1 GM/50 ML BAG IV (15:56)
--- NOTE | 2024-12-21 16:03 | XR_ITS ---
Examination: CT right lower extremity, without contrast. 2-D sagittal reconstructions. 2-D coronal reconstructions. 3-D reconstructions. Date and time of exam:December 21, 2024 at 1650 hours INDICATIONS: Right eye pain 1 week, small cystic areas medial thigh 22 mm, 27 mm on venous Doppler study today CTDI: vol (mGy):18.8 DLP: (mGycm):1222 Technique: Multiple 1.25 mm axial sections of the cellulitis pattern in the soft tissue medial thigh Small fluid collections in the medial thigh, axial image 175, measuring 21 mm, 15 mm Larger have been obtained. 2-D sagittal and coronal reconstructions have been obtained. 3-D reconstructions have been obtained. Low dose protocols were performed. One or more of the following dose reduction techniques were used; automated exposure control, adjustment of the mA and/or KV according to patient size, use of iterative reconstruction technique. Findings: Cellulitis pattern in soft tissue medial thigh Mid medial thigh fluid collections axial image 175, 21 mm, 15 mm Distal medial thigh fluid collections, axial image 195 25 mm, 27 mm Cortex of the femoral shaft intact No endosteal scalloping Negative for osteomyelitis IMPRESSION: Cellulitis pattern of soft tissue medial thigh Multiple medial thigh fluid collections including mid thigh 21 mm, 15 mm distal thigh 25 mm 27 mm most consistent with small abscesses, clinical correlation advised
[2024-12-21] MEDS: ENOXAPARIN SOD INJ 100 MG/ML SYRINGE SC (21:56)
[2024-12-21] MEDS: DOXYCYCLINE 100 MG TABLET PO (21:57)
[2024-12-22] VITALS (9 sets, daily range): BP systolic 116–150; BP diastolic 62–86; PULSE 97–127; RESP 12–20; TEMP 36.1–36.9; O2SAT 94–96; BMI 38.9
[2024-12-22] MEDS: DILTIAZEM in D5W 125 MG 125 MG/125 ML BAG 10 MG IV ×2 (01:52→14:33)
[2024-12-22 05:53] LABS: Basophils % (Auto) 0 % (0-2.5); Eosinophils # (Auto) 0.2 Thou/mm3 (0.0-0.5); Eosinophils % (Auto) 2 % (0-10); Hematocrit 37.7 % (36.0-46.0); Hemoglobin 12.6 g/dL (12.0-16.0); Immature Granulocytes % (Auto) 0 % (0-0); Immature Granulocytes Auto 0.02 Thou/mm3 (0.00-0.00); Lymphocytes # (Auto) 2.3 Thou/mm3 (1.0-4.8); Lymphocytes % (Auto) 25 % (10-50); Mean Corpuscular HGB Conc 33.4 g/dl (31.0-37.0); Mean Corpuscular Hemoglobin 29.1 pg (25.0-35.0); Mean Corpuscular Volume 87 fL (80-100); Monocytes # (Auto) 0.7 Thou/mm3 (0.0-0.8); Monocytes % (Auto) 7 % (0-12); Neutrophils % (Auto) 65 % (37-80); Nucleated Red Blood Cell % 0 /100 WBC (0); Platelet Count 215 Thou/mm3 (140-440); RDW Standard Deviation 42.3 fL (36.4-46.3); Red Blood Count 4.33 Miln/mm3 (4.00-5.20); White Blood Count 9.1 Thou/mm3 (3.6-11.0)
[2024-12-22 06:31] LABS: Alanine Aminotransferase < 7 U/L (10-49); Albumin, Serum 4.3 gm/dL (3.4-4.8); Albumin/Globulin Ratio 1.7 (1.2-2.2); Alkaline Phosphatase 68 U/L (46-116); Anion Gap 11 (7-16); Aspartate Amino Transferase 12 U/L (0-34); BUN/Creatinine Ratio 15 Ratio (12-20); Bilirubin,Total 0.6 mg/dL (0.3-1.2); Blood Urea Nitrogen 18 mg/dL (9-23); Calcium 9.4 mg/dL (8.3-10.6); Calcium (Corrected) 9.4 mg/dL (8.5-10.1); Chloride 104 mMol/L (98-107); Creatinine (Component) 1.2 mg/dL (0.6-1.3); Globulin 2.5 gm/dL (2.3-3.5); Glucose 114 mg/dL (74-106); Osmolality,Calculated 280 (275-295); Potassium 4.2 mMol/L (3.4-5.1); Sodium 139 mMol/L (136-145); Total Protein 6.8 gm/dL (5.7-8.2); eGFR 47 See Note
[2024-12-22] MEDS: METOPROLOL SUCCINATE XL 25 MG TABCR 50 MG PO (09:10)
[2024-12-22] MEDS: cefTRIAXone/D5w 1gm IV premix 1 GM/50 ML BAG IV (09:45)
[2024-12-22] MEDS: ENOXAPARIN SOD INJ 100 MG/ML SYRINGE SC ×2 (09:50→20:25)
[2024-12-22] MEDS: DOXYCYCLINE 100 MG TABLET PO ×2 (09:50→20:25)
--- NOTE | 2024-12-22 12:31 | PD.SURCONS ---
HPI Consult details Consult date: 12/22/24 Reason for consultation narrative: Right thigh fluid collections History of present illness: 74-year-old female with history of hypertension, atrial fibrillation on Eliquis has had right thigh DVT on July 2024. Her recent ultrasounds did not show evidence of DVT. She was admitted with palpitation. She has developed cellulitis on the medial aspect of right thigh with significant pain. She was seen at [facility] and she was given oral antibiotic and discharged. She continues to have erythema and pain of right inner thigh. CT scan revealed 2 small fluid collections. She denies history of insect or spider bites. She also denies history of trauma. Review of Systems Constitutional Constitutional: Denies chills and Denies fever(s) Cardiovascular Cardiovascular: Denies chest pain Respiratory Respiratory: Denies cough Gastrointestinal Gastrointestinal: Denies abdominal pain, Denies nausea and Denies vomiting Musculoskeletal Comments: Right thigh pain Hematologic/Lymphatic Hematologic/Lymphatic: Denies easy bleeding Past Medical History Surgical History OTHER SURGICAL HX: Left total knee replacement, hysterectomy, appendectomy, tonsillectomy, back surgery Meds Home Medications and Allergies Home Medications ?Medication ?Instructions ?Recorded ?Confirmed ?Type dronedarone 400 mg tablet (Multaq) 400 mg PO BID ##0 11/19/16 12/21/24 History metoprolol succinate 25 mg 50 mg PO QDAY ##0 11/19/16 12/21/24 History tablet,extended release 24 hr (Toprol XL) omeprazole 40 mg capsule,delayed 40 mg PO QDAY ##0 11/19/16 05/12/21 History release dexlansoprazole 60 mg 60 mg PO QDAY 02/29/20 12/21/24 History capsule,biphase delayed release (Dexilant) ferrous sulfate 325 mg (65 mg 325 mg PO QDAY 02/29/20 05/12/21 History iron) tablet amlodipine 5 mg-olmesartan 40 mg 1 tab PO QDAY 04/03/21 12/21/24 History tablet (Arthur) rivaroxaban 20 mg tablet (Xarelto) 20 mg PO QDAY 04/03/21 05/12/21 History Held on 05/13/21. Instructions: Resume on 05/14/21. Resume Xarelto tomorrow hydralazine 100 mg tablet 100 mg PO BID 05/12/21 12/21/24 History apixaban 5 mg tablet (Eliquis) 5 mg PO BID 12/21/24 12/21/24 History Allergies Allergy/AdvReac Type Severity Reaction Status Date / Time chlorhexidine Allergy Severe HIVES Verified 12/21/24 11:16 erythromycin base Allergy Severe HIVES Verified 12/21/24 11:16 levofloxacin (From Levaquin) Allergy Severe Redness of Verified 12/21/24 11:16 Skin Penicillins Allergy Severe SWELLING Verified 12/21/24 11:16 Sulfa (Sulfonamide Allergy Severe HIVES, Verified 12/21/24 11:16 Antibiotics) SWELLING Exam Vital Signs Temp Pulse Resp BP Pulse Ox O2 Del Method O2 Flow Rate 96.9 F 112 H 17 128/82 94 L Nasal Cannula 2 12/22/24 08:00 12/22/24 09:10 12/22/24 08:00 12/22/24 09:10 12/22/24 08:00 12/22/24 08:00 12/22/24 08:00 Constitutional Constitutional: no acute distress Routine Extremities Exam Comments: She has cellulitis of right inner thigh, from previously placed markings it appears that cellulitis improved. She has hardness at the center of cellulitis, no obvious fluctuance Results Results: Laboratory Laboratory results: results reviewed Results: Imaging Imaging narrative: CT scan of right lower extremity images reviewed, radiologist interpretation noted Assessment & Plan Additional Assessment Additional comments: Patient has history of atrial fibrillation on Eliquis, she took Eliquis 2 days ago. She has 2 small fluid collections on the right inner thigh that might be small abscesses or small hematomas from Eliquis use. Cellulitis improved Plan Continue antibiotics and apply warm compress. If symptoms improve, no further intervention indicated. If symptoms worsen and or cellulitis progress, may plan for incision and drainage.
--- NOTE | 2024-12-22 14:40 | ESPR_ITS ---
Documentation for date of: 12/22/24 Subjective Subjective Interval history: No acute events overnight.?Patient seen and examined at bedside this AM.?Patient reports continued palpitations this morning. She was able to sleep well, however. Patient continues to have pain in the right lower leg posteriorly. Patient has improvement of the erythema on examination. Venous doppler US was negative for DVT. However CT right leg showed multiple medial thigh fluid collections most consistent with abscesses. General surgery on-call Dr. Miranda was consulted. Labs and vitals were reviewed.?Patient remains in afib rate around 90-120s. CBC and CMP were stable. No further complaints at this time. Will continue IV antibiotics ceftriaxone 1 g qday and doxycycline 100 mg BID. Review of systems otherwise negative except what is mentioned above. Exam Vital Signs Temp Pulse Resp BP Pulse Ox O2 Del Method O2 Flow Rate 97.8 F 105 H 20 146/81 H 95 Nasal Cannula 2 12/22/24 12:00 12/22/24 14:33 12/22/24 12:00 12/22/24 14:33 12/22/24 12:00 12/22/24 12:00 12/22/24 12:00 Narrative Exam Physical Exam: GENERAL: Awake, answering questions appropriately, appears stated age HEENT: NC/AT. Moist mucosa. PERRLA/EOMI. CARDIO: Irregularly irregular, no obvious murmurs, no JVD. PULM: No coughing or visible SOB. Lungs CTA B/L but appears to be on 1 to 2 L of nasal cannula GI: Abdomen soft, NT/ND, +BS. SKIN/MSK/EXT: Patient has a right inner thigh erythematous lesion which is acutely tender to palpation. No wounds/rashes/edema/amputations noted. +Pedal pulses present B/L. NEURO: Oriented x3, no focal neurologic deficits, moves extremities x 4 Objective Labs 12/23/24 05:43 12/23/24 05:43 Labs: Laboratory Results - last 24 hr 12/22/24 04:29 WBC 9.1 RBC 4.33 Hgb 12.6 Hct 37.7 MCV 87 MCH 29.1 MCHC 33.4 RDW Std Deviation 42.3 Plt Count 215 D Neut % (Auto) 65 Lymph % (Auto) 25 Simpson % (Auto) 7 Eos % (Auto) 2 Baso % (Auto) 0 Neut # (Auto) 6.0 Lymph # (Auto) 2.3 Simpson # (Auto) 0.7 Eos # (Auto) 0.2 Baso # (Auto) 0.0 Immature Gran # (Auto) 0.02 H Absolute Nucleated RBC 0.00 Immature Gran % 0 Nucleated RBC % 0 Sodium 139 Potassium 4.2 Chloride 104 Carbon Dioxide 24.0 Anion Gap 11 BUN 18 Creatinine 1.2 Estim Creat Clear Calc 49.0 L eGFR 47 L BUN/Creatinine Ratio 15 Glucose 114 H Calculated Osmolality 280 Calcium 9.4 Corrected Calcium 9.4 Total Bilirubin 0.6 AST 12 ALT < 7 L Alkaline Phosphatase 68 Total Protein 6.8 Albumin 4.3 Globulin 2.5 Albumin/Globulin Ratio 1.7 Quality Measures Quality Measures none Advance care planning discussed with:: patient Assessment & Plan Assessment Current Active Medications: Generic Name Dose Route Start Last Admin Trade Name Freq PRN Reason Stop Dose Admin Acetaminophen 650 mg 12/21/24 15:00 Acetaminophen 325 Mg Tablet PO 01/20/25 14:59 Q6H PRN Pain 1-3 and/or Fever >100.1 Doxycycline Hyclate 100 mg 12/21/24 21:00 12/22/24 09:50 Doxycycline 100 Mg Tablet PO 12/28/24 20:59 100 mg BID KIRBY Administration Enoxaparin Sodium 100 mg 12/21/24 21:00 12/22/24 09:50 Enoxaparin Sod Inj 100 Mg/Ml Syringe 1 mg/kg (100 mg) 01/04/25 20:59 100 mg SC Administration BID KIRBY Diltiazem HCl 125 mg in 125 mls @ 10 mls/hr 12/21/24 13:30 12/22/24 14:33 Diltiazem In D5w 125 Mg IV 01/20/25 13:29 10 mg/hr .[id number] KIRBY 10 mls/hr Administration 10 MG/HR Ceftriaxone Sodium/Dextrose 1 gm in 50 mls @ 100 mls/hr 12/21/24 15:15 12/22/24 09:45 Rocephin/D5w 1gm Iv Premix IV 12/28/24 15:10 100 mls/hr QDAY KIRBY Administration Metoprolol Succinate 50 mg 12/22/24 09:45 12/22/24 09:10 Metoprolol Succinate Xl 25 Mg Tabcr PO 04/21/25 09:44 50 mg QDAY KIRBY Administration Ondansetron HCl 4 mg 12/21/24 15:00 Ondansetron Inj 2 Mg/Ml Inj 2 Ml IV 01/20/25 14:59 Q6H PRN NAUSEA OR VOMITING Protocol Sennosides 1 tab 12/21/24 15:00 Senna Tablet PO 01/20/25 14:59 QDAY PRN constipation Protocol Plan 74-year-old female with past medical history of chronic atrial fibrillation, hypertension, history of DVT (right lower extremity) presenting to the ED on 12/21 with an episode of palpitations about will be admitted for A-fib with RVR on diltiazem drip and treatment for cellulitis with IV antibiotics. #A-fib with RVR #Chronic atrial fibrillation Patient has history of atrial fibrillation, on home metoprolol succinate 50 mg daily and Eliquis 5 mg p.o. twice daily Patient follows with rental agent Dr. Ramila Lindo and EP rental agent Dr. Castro Per history, patient started developing palpitations and elevated heart rate sometime around 10:30 AM on 12/21 while she was outside her house Patient denies having any concerning cardiac symptoms such as chest pain, shortness of breath, but does state that she that she was dizzy and had some nausea In the ED, patient was confirmed to have A-fib RVR with EKG but was within normal limits and BNP was 138 Patient given a x 1 diltiazem 25 mg, followed by x 1 diltiazem 50 mg which did not convert her; thus decision was made to start diltiazem drip Suspect afib triggered by underlying infectious process Plan: Telemetry monitoring Discontinued diltiazem drip today Started patient's home dose metoprolol succinate 50 mg qday Will uptitrate metoprolol if rate control is not achieved Holding home Eliquis 5 mg p.o. twice daily in case of procedure Continue therapeutic dose Lovenox 100 mg subQ BID #Cellulitis of the right lower extremity #Possible small abscesses in the right lower extremity, 1.5-2.7 cm in size #History of DVT Apparently, patient was at [facility] 2 days ago with right lower extremity erythema Duplex ultrasound was completed at [facility] which did not show any signs of DVT and the patient was discharged with Keflex 500 mg and doxycycline 100 mg p.o. twice daily Patient presenting with persistent right lower extremity erythema and acute tenderness on palpation X2 morphine 2mg IV for pain Repeat ultrasound ordered showed small cystic areas in the mid medial thigh 18 x 22 mm, [address] right lower extremity without contrast 12/21/2024 showed cellulitis pattern of soft tissue medial thigh, multiple medial thigh fluid collections including mid thigh 21 mm, 15 mm distal thigh 25 mm 27 mm most consistent with small abscesses, clinical correlation advised Plan: Continue on IV ceftriaxone and p.o. doxy 100 mg twice daily Blood cultures pending MRSA screen pending #Hypertension Per med rec, patient is on hydralazine 100 mg 3 times daily along with the metoprolol succinate 50 mg daily for blood pressure control Patient's blood pressure is fluctuating secondary to the A-fib with RVR Plan: youth nutritional monitor as above Will consider restarting hydralazine 100 mg 3 times daily if necessary Hospital Management: Lines: PIV Diet: Cardiac Bowel: Senna as needed GI prophylaxis: Not needed DVT prophylaxis: Enoxaparin 100 mg BID anticoagulation therapeutic dose Dispo: Observation; IV diltiazem drip for A-fib RVR and IV antibiotics for cellulitis treatment Code: Full Patient plan of care was discussed with the attending physician, Dr. Valerio. Chloé Griffin, PGY-2 Attending Provider Attestation/Addendum Hira, Alanna Valerio, , attest that I was physically present for the pearl portions of the service and evaluated the patient with the resident and I reviewed and discussed the case with the resident and agree with the resident's findings and plans of care as documented above Patient seen and evaluated this AM. Patient states she is feeling somewhat better today, but continue to have pain in her right distal thigh at site of cellulitis. She remains very tender to palpation with some erythema and edema. Patient states she had been taking water pills about one week ago since her rental agent felt that she had fluid in her lungs. HR better controlled today. She remains on cardizem drip, will restart her home meds and DC drip. Will uptitrate home meds as needed if HR remains uncontrolled. Consulted surgery due to abscesses, will f/u with recommendations.
[2024-12-23] VITALS (7 sets, daily range): BP systolic 109–148; BP diastolic 70–97; PULSE 65–129; RESP 15–26; TEMP 36.1–36.6; O2SAT 92–98; BMI 39.2
[2024-12-23 06:24] LABS: Basophils % (Auto) 0 % (0-2.5); Eosinophils # (Auto) 0.2 Thou/mm3 (0.0-0.5); Eosinophils % (Auto) 2 % (0-10); Hematocrit 36.4 % (36.0-46.0); Hemoglobin 12.4 g/dL (12.0-16.0); Immature Granulocytes % (Auto) 0 % (0-0); Immature Granulocytes Auto 0.02 Thou/mm3 (0.00-0.00); Lymphocytes # (Auto) 1.5 Thou/mm3 (1.0-4.8); Lymphocytes % (Auto) 22 % (10-50); Mean Corpuscular HGB Conc 34.1 g/dl (31.0-37.0); Mean Corpuscular Hemoglobin 29.2 pg (25.0-35.0); Mean Corpuscular Volume 86 fL (80-100); Monocytes # (Auto) 0.6 Thou/mm3 (0.0-0.8); Monocytes % (Auto) 9 % (0-12); Neutrophils # (Auto) 4.6 Thou/mm3 (1.8-7.7); Neutrophils % (Auto) 66 % (37-80); Nucleated Red Blood Cell % 0 /100 WBC (0); Platelet Count 192 Thou/mm3 (140-440); Red Blood Count 4.25 Miln/mm3 (4.00-5.20)
[2024-12-23 07:13] LABS: Alanine Aminotransferase 8 U/L (10-49); Albumin/Globulin Ratio 1.7 (1.2-2.2); Alkaline Phosphatase 62 U/L (46-116); Anion Gap 9 (7-16); Aspartate Amino Transferase 12 U/L (0-34); BUN/Creatinine Ratio 16 Ratio (12-20); Bilirubin,Total 0.4 mg/dL (0.3-1.2); Blood Urea Nitrogen 18 mg/dL (9-23); Calcium 9.4 mg/dL (8.3-10.6); Calcium (Corrected) 9.4 mg/dL (8.5-10.1); Carbon Dioxide 25.6 mMol/L (20.0-31.0); Chloride 105 mMol/L (98-107); Creatinine (Component) 1.1 mg/dL (0.6-1.3); Estimated Creatinine Clearance 53.7 mL/min (>60); Globulin 2.3 gm/dL (2.3-3.5); Glucose 111 mg/dL (74-106); Osmolality,Calculated 282 (275-295); Potassium 4.3 mMol/L (3.4-5.1); Sodium 140 mMol/L (136-145); Total Protein 6.3 gm/dL (5.7-8.2); eGFR 52 See Note
[2024-12-23] MEDS: METOPROLOL SUCCINATE XL 25 MG TABCR 100 MG PO (09:10)
[2024-12-23] MEDS: SENNA TABLET 1 TAB PO (09:11)
[2024-12-23] MEDS: ENOXAPARIN SOD INJ 100 MG/ML SYRINGE SC ×2 (09:11→20:49)
[2024-12-23] MEDS: cefTRIAXone/D5w 1gm IV premix 1 GM/50 ML BAG IV (09:11)
[2024-12-23] MEDS: DOXYCYCLINE 100 MG TABLET PO ×2 (09:11→20:49)
--- NOTE | 2024-12-23 11:48 | PD.RESPRO ---
Documentation for date of: 12/23/24 Subjective Subjective Interval history: 12/23/2024: No acute overnight events to report. Patient seen and examined in hospital bed denies having any concerning symptoms such as chest pain, shortness of breath, palpitations or abdominal pain. Patient's right lower extremity cellulitis is improving with less redness noted at the site but there is still any mass palpated. General surgery was able to see the patient this morning and the recommendation is to continue antibiotics and to follow-up outpatient in 1 week. Patient continues to be in and out of A-fib RVR; moreover, will continue metoprolol succinate 100 mg and if patient's heart rate improves we will lower it to milligrams. Patient has home medication dronedarone 400 mg p.o. twice daily bedside which she is continuing to take. Will continue to monitor and expect discharge within the next 24 hours. Exam Vital Signs Temp Pulse Resp BP Pulse Ox O2 Del Method O2 Flow Rate 97.2 F 95 16 138/97 H 96 Room Air 2 12/23/24 08:00 12/23/24 09:10 12/23/24 08:00 12/23/24 09:10 12/23/24 08:00 12/23/24 08:00 12/23/24 04:00 Narrative Exam Physical Exam: GENERAL: Awake, answering questions appropriately, appears stated age HEENT: NC/AT. Moist mucosa. PERRLA/EOMI. CARDIO: Irregularly irregular, no obvious murmurs, no JVD. PULM: No coughing or visible SOB. Lungs CTA B/L but appears to be on 1 to 2 L of nasal cannula GI: Abdomen soft, NT/ND, +BS. SKIN/MSK/EXT: Patient has a right inner thigh erythematous lesion which is less tender to palpation. No wounds/rashes/edema/amputations noted. +Pedal pulses present B/L. NEURO: Oriented x3, no focal neurologic deficits, moves extremities x 4 Objective Labs 12/24/24 05:23 12/24/24 05:23 Labs: Laboratory Results - last 24 hr 12/23/24 05:43 WBC 7.0 RBC 4.25 Hgb 12.4 Hct 36.4 MCV 86 MCH 29.2 MCHC 34.1 RDW Std Deviation 41.0 Plt Count 192 Neut % (Auto) 66 Lymph % (Auto) 22 Parmer % (Auto) 9 Eos % (Auto) 2 Baso % (Auto) 0 Neut # (Auto) 4.6 Lymph # (Auto) 1.5 Parmer # (Auto) 0.6 Eos # (Auto) 0.2 Baso # (Auto) 0.0 Immature Gran # (Auto) 0.02 H Absolute Nucleated RBC 0.00 Immature Gran % 0 Nucleated RBC % 0 Sodium 140 Potassium 4.3 Chloride 105 Carbon Dioxide 25.6 Anion Gap 9 BUN 18 Creatinine 1.1 Estim Creat Clear Calc 53.7 L eGFR 52 L BUN/Creatinine Ratio 16 Glucose 111 H Calculated Osmolality 282 Calcium 9.4 Corrected Calcium 9.4 Total Bilirubin 0.4 AST 12 ALT 8 L Alkaline Phosphatase 62 Total Protein 6.3 Albumin 4.0 Globulin 2.3 Albumin/Globulin Ratio 1.7 Quality Measures Quality Measures none Advance care planning discussed with:: patient Assessment & Plan Assessment Current Active Medications: Generic Name Dose Route Start Last Admin Trade Name Freq PRN Reason Stop Dose Admin Acetaminophen 650 mg 12/21/24 15:00 Acetaminophen 325 Mg Tablet PO 01/20/25 14:59 Q6H PRN Pain 1-3 and/or Fever >100.1 Multaq (Dronedarone) 0 ea 12/23/24 10:00 12/23/24 11:39 400 Mg Tablets PO 01/22/25 09:59 1 tablet BID KIRBY Administration Doxycycline Hyclate 100 mg 12/21/24 21:00 12/23/24 09:11 Doxycycline 100 Mg Tablet PO 12/28/24 20:59 100 mg BID KIRBY Administration Enoxaparin Sodium 100 mg 12/21/24 21:00 12/23/24 09:11 Enoxaparin Sod Inj 100 Mg/Ml Syringe 1 mg/kg (100 mg) 01/04/25 20:59 100 mg SC Administration BID KIRBY Ceftriaxone Sodium/Dextrose 1 gm in 50 mls @ 100 mls/hr 12/21/24 15:15 12/23/24 09:11 Rocephin/D5w 1gm Iv Premix IV 12/28/24 15:10 100 mls/hr QDAY KIRBY Administration Metoprolol Succinate 100 mg 12/23/24 09:00 12/23/24 09:10 Metoprolol Succinate Xl 25 Mg Tabcr PO 01/22/25 08:59 100 mg QDAY KIRBY Administration Ondansetron HCl 4 mg 12/21/24 15:00 Ondansetron Inj 2 Mg/Ml Inj 2 Ml IV 01/20/25 14:59 Q6H PRN NAUSEA OR VOMITING Protocol Sennosides 1 tab 12/23/24 09:00 12/23/24 09:11 Senna Tablet PO 01/22/25 08:59 1 tab QDAY KIRBY Administration Protocol Plan 74-year-old female with past medical history of chronic atrial fibrillation, hypertension, history of DVT (right lower extremity) presenting to the ED on 12/21 with an episode of palpitations about will be admitted for A-fib with RVR on diltiazem drip and treatment for cellulitis with IV antibiotics. #A-fib with RVR #Chronic atrial fibrillation Patient has history of atrial fibrillation, on home metoprolol succinate 50 mg daily, dronedarone 400 mg p.o. twice daily and Eliquis 5 mg p.o. twice daily Patient follows with compression molding machine operator Dr. Ramila Lindo and EP compression molding machine operator Dr. Castro Per history, patient started developing palpitations and elevated heart rate sometime around 10:30 AM on 12/21 while she was outside her house Patient denies having any concerning cardiac symptoms such as chest pain, shortness of breath, but does state that she that she was dizzy and had some nausea In the ED, patient was confirmed to have A-fib RVR with EKG but was within normal limits and BNP was 138 Patient given a x 1 diltiazem 25 mg, followed by x 1 diltiazem 50 mg which did not convert her; thus decision was made to start diltiazem drip Suspect afib triggered by underlying infectious process Plan: Telemetry monitoring Patient on metoprolol succinate 100 mg daily, will lower to 50 mg daily if the patient converts back to sinus or if heart rate is well-controlled Patient is taking dronedarone 400 mg p.o. twice daily, home medication Continue therapeutic dose Lovenox 100 mg subQ BID Will restart Eliquis home dose on discharge #Cellulitis of the right lower extremity #Possible small abscesses in the right lower extremity, 1.5-2.7 cm in size #History of DVT Apparently, patient was at [facility] 2 days ago with right lower extremity erythema Duplex ultrasound was completed at [facility] which did not show any signs of DVT and the patient was discharged with Keflex 500 mg and doxycycline 100 mg p.o. twice daily Patient presenting with persistent right lower extremity erythema and acute tenderness on palpation X2 morphine 2mg IV for pain Repeat ultrasound ordered showed small cystic areas in the mid medial thigh 18 x 22 mm, [address] right lower extremity without contrast 12/21/2024 showed cellulitis pattern of soft tissue medial thigh, multiple medial thigh fluid collections including mid thigh 21 mm, 15 mm distal thigh 25 mm 27 mm most consistent with small abscesses, clinical correlation advised MRSA nares screen is positive Blood cultures no growth within 24 hours General Surgery, was consulted appreciate recommendations Plan: Continue on IV ceftriaxone and p.o. doxy 100 mg twice daily; will transition to p.o. 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 Valerio and senior resident Dr. Paulina Sauceda, PGY-1 -- ATTESTATION: I saw and examined the patient this morning, and I agree with current management stated by the resident. Will continue to monitor patient during their stay. Patient is a 74-year-old female with past medical history of chronic A-fib, hypertension, history of DVT on the right lower extremity that was admitted on 12/21/2024 due to A-fib with RVR. Patient was found to be on A-fib with RVR likely secondary to an infection on her right lower extremity where she was found to have cellulitis on ultrasound. Patient was started on IV antibiotics and general surgery was consulted who recommends to continue monitoring for now. Patient is rate controlled at this time and her right lower extremity cellulitis is improving. Disclaimer: Despite multiple revisions, due to the dictation software being used, the document bellow may not be free of grammatical errors including phonetic/typographic errors. However, this does not deter from our commitment to providing health care in the patient's best interest in mind. Dr. Kory Gallardo, PGY-3 Attending Provider Attestation/Addendum I, Alanna Valerio, , attest that I was physically present for the pearl portions of the service and evaluated the patient with the resident and I reviewed and discussed the case with the resident and agree with the resident's findings and plans of care as documented above' Patient seen and evaluated this AM. HR is better controlled. Increased metoprolol to 100mg PO daily as Multaq was documented as not given. However, patient states she took one from her purse last night. She continues to have some episodes of rapid ventricular rhythm. Cardizem drip was discontinued yesterday. Cellulitic region of her distal right thigh appears improved. Her right knee is more edematous than her left knee which she states is due to her OA in right knee. Will continue with IV abx at this time and monitor HR, titrate as needed for better control of HR. Anticipate DC in next 24h if no surgical intervention is needed
--- NOTE | 2024-12-23 13:00 | PD.SURPROG ---
Documentation for date of: 12/23/24 Subjective Subjective Narrative: Patient is seen and examined. Pain and cellulitis of right thigh are improving Exam Vital Signs Temp Pulse Resp BP Pulse Ox O2 Del Method O2 Flow Rate 97.2 F 95 16 138/97 H 96 Room Air 2 12/23/24 08:00 12/23/24 09:10 12/23/24 08:00 12/23/24 09:10 12/23/24 08:00 12/23/24 08:00 12/23/24 04:00 Constitutional Constitutional: no acute distress Routine Extremities Exam Comments: Significant improvement of right thigh cellulitis. She still has some induration and hardness under the skin it could be a small abscess or hematoma Assessment & Plan Assessment Additional comments: Cellulitis of right thigh improving. She has small abscess versus hematoma Plan Clinically patient is improving. No indications for surgical intervention at this time. May discharge on oral antibiotic from surgical standpoint. Continue to apply warm compress. Follow-up with Dr Miranda in 1 week, please call [phone] for an appointment.
[2024-12-24] VITALS (7 sets, daily range): BP systolic 114–137; BP diastolic 75–99; PULSE 69–127; RESP 15–18; TEMP 36.1–36.5; O2SAT 91–97; BMI 38.9
[2024-12-24 05:51] LABS: Basophils % (Auto) 1 % (0-2.5); Eosinophils # (Auto) 0.2 Thou/mm3 (0.0-0.5); Eosinophils % (Auto) 2 % (0-10); Hematocrit 35.9 % (36.0-46.0); Hemoglobin 12.2 g/dL (12.0-16.0); Immature Granulocytes % (Auto) 0 % (0-0); Immature Granulocytes Auto 0.02 Thou/mm3 (0.00-0.00); Lymphocytes # (Auto) 1.9 Thou/mm3 (1.0-4.8); Lymphocytes % (Auto) 30 % (10-50); Mean Corpuscular Hemoglobin 28.7 pg (25.0-35.0); Mean Corpuscular Volume 85 fL (80-100); Monocytes # (Auto) 0.6 Thou/mm3 (0.0-0.8); Monocytes % (Auto) 9 % (0-12); Neutrophils # (Auto) 3.8 Thou/mm3 (1.8-7.7); Neutrophils % (Auto) 58 % (37-80); Nucleated Red Blood Cell % 0 /100 WBC (0); Platelet Count 201 Thou/mm3 (140-440); RDW Standard Deviation 40.4 fL (36.4-46.3); Red Blood Count 4.25 Miln/mm3 (4.00-5.20); White Blood Count 6.5 Thou/mm3 (3.6-11.0)
[2024-12-24 06:17] LABS: Anion Gap 10 (7-16); BUN/Creatinine Ratio 20 Ratio (12-20); Blood Urea Nitrogen 22 mg/dL (9-23); Carbon Dioxide 25.1 mMol/L (20.0-31.0); Chloride 105 mMol/L (98-107); Creatinine (Component) 1.1 mg/dL (0.6-1.3); Estimated Creatinine Clearance 53.5 mL/min (>60); Glucose 106 mg/dL (74-106); Potassium 4.5 mMol/L (3.4-5.1); Sodium 140 mMol/L (136-145); eGFR 52 See Note
[2024-12-24 06:18] LABS: Alanine Aminotransferase 7 U/L (10-49); Albumin/Globulin Ratio 1.7 (1.2-2.2); Alkaline Phosphatase 61 U/L (46-116); Aspartate Amino Transferase 11 U/L (0-34); Bilirubin,Total 0.3 mg/dL (0.3-1.2); Calcium 9.9 mg/dL (8.3-10.6); Calcium (Corrected) 9.9 mg/dL (8.5-10.1); Globulin 2.3 gm/dL (2.3-3.5); Osmolality,Calculated 282 (275-295); Total Protein 6.3 gm/dL (5.7-8.2)
[2024-12-24] MEDS: cefTRIAXone/D5w 1gm IV premix 1 GM/50 ML BAG IV (08:27)
[2024-12-24] MEDS: ENOXAPARIN SOD INJ 100 MG/ML SYRINGE SC (08:28)
[2024-12-24] MEDS: METOPROLOL SUCCINATE XL 25 MG TABCR 50 MG PO (08:28)
[2024-12-24] MEDS: DOXYCYCLINE 100 MG TABLET PO (08:29)
[2024-12-24] MEDS: SENNA TABLET 1 TAB PO (08:29)
[2024-12-24] MEDS: METOPROLOL TARTRATE INJ 1 MG/ML AMP 5 ML 5 MG IVP (10:59)
--- NOTE | 2024-12-24 11:26 | ESDS_ITS ---
<Statement entered by Alanna Valerio DO - 12/25/24 08:05> I, Alanna Valerio DO, attest that I was physically present for the pearl portions of the service and evaluated the patient with the resident and I reviewed and discussed the case with the resident and agree with the resident's findings and plans of care as documented above Planned Discharge Date 12/24/24 DS: Providers Provider Date of admission: 12/21/24 15:52 Primary care physician: Physician No Primary/Family Admitting Provider: Alanna Valerio DO Attending Provider on Admission: Alanna Valerio DO Consults: 12/22/24 10:59 Consult to General Surgery Routine Comment: Right leg abscesses Consulting Provider: Berna Miranda Attending Provider on DC: Anthony Sauceda MD Discharging Provider: Anthony Sauceda MD DS: Diagnosis Problem List Completed Was Problem List Reviewed/Reconciled?: Yes Hospital Course Hospital Course Hospital course: 74-year-old female with past medical history of chronic atrial fibrillation, hypertension, history of DVT scented to the ED on 12/21 with episode of palpitations and found to be in A-fib with RVR. In the ED, patient was normotensive, heart rate in the 130s, respiratory rate of 19 but afebrile and saturating 94 on minimal oxygen. Patient's troponin was within normal limits, BNP 158 and EKG confirmed A-fib with RVR with no concerning ST changes. Chest x-ray did not show any active disease and the patient was admitted for A-fib with RVR on diltiazem drip and treatment for cellulitis of the right lower extremity with IV antibiotics. General surgery was consulted as CT image findings showed cystic lesions on the right lower extremity; moreover, general surgery recommended continued IV antibiotics at the follow-up outpatient within 1 week. Patient was eventually transitioned off the IV diltiazem drip to metoprolol succinate initially 100 mg but then lowered to 50 mg. Patient did have persistent A-fib RVR which would go back and forth to rate controlled. Eventually patient's heart rate was better controlled and she will be discharged with the following strict instructions. Please take metoprolol succinate 75 mg by mouth daily for AFIB Take Keflex 500mg by mouth every 6 hours for four additional days for cellulitis of right lower extremity Continue to take doxycycline 100mg by mouth twice a day for four additional days for cellulitis of right lower extremity Continue take all your home medications as prescribed Stop taking Xarelto and metoprolol succinatr 25mg Follow-up with Dr. Miranda (General Surgery) within 1 week Follow-up with your PCP within 1-2 weeks after discharge If your symptoms worsen or if you develop new chest pain, shortness of breath, palpitations or dizziness - please come back to the ED immediately. Hospital Diagnosis: #A-fib with RVR #Chronic atrial fibrillation #Cellulitis of the right lower extremity #Possible small abscesses in the right lower extremity, 1.5-2.7 cm in size #History of DVT #Hypertension Anthony Sauceda, PGY-1 Status at Discharge Overall status at discharge: patient is progressing back to baseline Time Spent with Patient Time attestation: Total time spent providing and/or coordinating discharge services: 45 minutes Time spent: Greater than 30 minutes Exam Vital Signs Temp Pulse Resp BP Pulse Ox O2 Del Method O2 Flow Rate 97.5 F 127 H 16 114/78 97 Room Air 1 12/24/24 08:00 12/24/24 10:59 12/24/24 08:00 12/24/24 10:59 12/24/24 08:00 12/24/24 08:00 12/24/24 04:00 Narrative Exam Physical Exam: GENERAL: Awake, answering questions appropriately, appears stated age HEENT: NC/AT. Moist mucosa. PERRLA/EOMI. CARDIO: Irregularly irregular, no obvious murmurs, no JVD. PULM: No coughing or visible SOB. Lungs CTA B/L but appears to be on 1 to 2 L of nasal cannula GI: Abdomen soft, NT/ND, +BS. SKIN/MSK/EXT: Patient has a right inner thigh erythematous lesion which is less tender to palpation. No wounds/rashes/edema/amputations noted. +Pedal pulses present B/L. NEURO: Oriented x3, no focal neurologic deficits, moves extremities x 4 Discharge Plan Plan Patient Disposition: HOME (Self Care) Patient condition on transfer: Stable Care Plan Goals: Please take metoprolol succinate 75 mg by mouth daily for AFIB Take Keflex 500mg by mouth every 6 hours for four additional days for cellulitis of right lower extremity Continue to take doxycycline 100mg by mouth twice a day for four additional days for cellulitis of right lower extremity Continue take all your home medications as prescribed Stop taking Xarelto and metoprolol succinatr 25mg Follow-up with Dr. Miranda (General Surgery) within 1 week Follow-up with your PCP within 1-2 weeks after discharge If your symptoms worsen or if you develop new chest pain, shortness of breath, palpitations or dizziness - please come back to the ED immediately. Prescriptions/Referrals Prescriptions/Med Rec: New doxycycline hyclate 100 mg Tablet 100 mg PO BID 4 Days Qty: 8 0RF metoprolol succinate 50 mg tablet extended release 24 hr 75 mg PO QDAY 30 Days Qty: 45 0RF cephalexin 500 mg capsule 500 mg PO QID 4 Days Qty: 16 0RF Continued omeprazole 40 MG capsule,delayed release(DR/EC) 40 mg PO QDAY Qty: 0 Multaq 400 MG tablet 400 mg PO BID Qty: 0 hydralazine 100 mg tablet 100 mg PO BID Patient Comments: TAKE 1 TABLET BY MOUTH TWICE A DAY WITH FOOD ferrous sulfate 325 mg (65 mg iron) Tablet 325 mg PO QDAY dexlansoprazole [Dexilant] 60 mg Capsule,Biphase Delayed Releas 60 mg PO QDAY amlodipine-olmesartan [Arthur] 5-40 mg Tablet 1 tab PO QDAY doxycycline hyclate 100 mg tablet 100 mg PO BID Qty: 14 0RF Eliquis 5 mg tablet 5 mg PO BID Patient Comments: TAKE 1 TABLET BY MOUTH TWICE A DAY Discontinued metoprolol succinate [Toprol XL] 25 MG tablet extended release 24 hr 50 mg PO BID Qty: 0 Xarelto 20 mg Tablet 20 mg PO QDAY Referrals: Berna Miranda MD [Physician] - No Primary/Family,Physician [Primary Care Provider] - Patient/Caregiver Discharge Instructions Education Materials: AFL/Afib, Discharge Instructions for ..., Discharge Instructions for Cellulitis Print Language: Marshallese Stand Alone Forms: Rolanda Award Info., Patient Portal Info Letter, Work/Release Restrictions Discharge Order Discharge Orders: Discharge (Routine); Ordered 12/24/24 Ordered By: Anthony Sauceda Quality Discharge Quality Measures VTE prophylaxis
--- NOTE | 2024-12-24 14:20 | PC.NURSE ---
Updated Dr Sauceda regarding pt's heart rate, a-fib 85-105. Clarified with MD if wants to resume discharge. Per Dr. Sauceda, may continue discharge as long as heart rate is below 110.
== END 2024-12-24 15:37 | disposition home or self-care (01) | DRG 309 ==
LOC: SERX 14:37 → SERHOLD 15:42 → S2NX 12-23 15:33 → SERHOLD 12-24 05:37 → S2NX 12-24 05:39
PROVIDERS: Nurse Practitioner Primary Care; Admitting Provider Internal Medicine; Emergency Provider Emergency Medicine; Visit Provider Internal Medicine
DX: I48.19 Other persistent atrial fibrillation (principal); L03.115 Cellulitis of right lower limb; M17.11 Unilateral primary osteoarthritis, right knee; I10 Essential (primary) hypertension; Z86.718 Personal history of other venous thrombosis and embolism; Z79.899 Other long term (current) drug therapy; Z79.01 Long term (current) use of anticoagulants
CPT/HCPCS: 36415; 71045; 73700; 80053; 83690; 83735; 83880; 84484; 85025; 85610; 87040; 87081; 93005; 93971; 96365; 96366; 96374; 99291; J0696; J1650; J2270; J3490; A9270

== ENCOUNTER → 2025-01-08 | Outpatient (CLI) | payer MEDICARE, SELFPAY ==
[2025-01-08 09:50] LABS: Basophils % (Auto) 1 % (0-2.5); Eosinophils # (Auto) 0.2 Thou/mm3 (0.0-0.5); Eosinophils % (Auto) 3 % (0-10); Hematocrit 34.1 % (36.0-46.0); Hemoglobin 11.1 g/dL (12.0-16.0); Immature Granulocytes % (Auto) 0 % (0-0); Immature Granulocytes Auto 0.03 Thou/mm3 (0.00-0.00); Lymphocytes # (Auto) 1.4 Thou/mm3 (1.0-4.8); Lymphocytes % (Auto) 20 % (10-50); Mean Corpuscular HGB Conc 32.6 g/dl (31.0-37.0); Mean Corpuscular Volume 89 fL (80-100); Monocytes # (Auto) 0.6 Thou/mm3 (0.0-0.8); Monocytes % (Auto) 8 % (0-12); Neutrophils # (Auto) 4.7 Thou/mm3 (1.8-7.7); Neutrophils % (Auto) 68 % (37-80); Nucleated Red Blood Cell % 0 /100 WBC (0); Platelet Count 194 Thou/mm3 (140-440); RDW Standard Deviation 44.8 fL (36.4-46.3); Red Blood Count 3.83 Miln/mm3 (4.00-5.20); White Blood Count 6.9 Thou/mm3 (3.6-11.0)
[2025-01-08 10:02] LABS: Alanine Aminotransferase 11 U/L (10-49); Albumin, Serum 4.1 gm/dL (3.4-4.8); Albumin/Globulin Ratio 1.9 (1.2-2.2); Alkaline Phosphatase 61 U/L (46-116); Anion Gap 7 (7-16); Aspartate Amino Transferase 11 U/L (0-34); BUN/Creatinine Ratio 21 Ratio (12-20); Bilirubin,Total 0.3 mg/dL (0.3-1.2); Blood Urea Nitrogen 27 mg/dL (9-23); Calcium 9.2 mg/dL (8.3-10.6); Calcium (Corrected) 9.2 mg/dL (8.5-10.1); Carbon Dioxide 25.2 mMol/L (20.0-31.0); Cardiac Risk Estimate 4.1 RATIO (3.7-5.6); Chloride 110 mMol/L (98-107); Cholesterol 170 mg/dL (132-200); Creatinine (Component) 1.3 mg/dL (0.6-1.3); Globulin 2.2 gm/dL (2.3-3.5); Glucose 114 mg/dL (74-106); HDL Cholesterol 41 mg/dL (40-60); LDL Cholesterol,Calculated 109 mg/dL (0-130); Osmolality,Calculated 289 (275-295); Potassium 4.6 mMol/L (3.4-5.1); Sodium 142 mMol/L (136-145); Total Protein 6.3 gm/dL (5.7-8.2); Triglycerides 98 mg/dL (30-150); eGFR 43 See Note
[2025-01-08 11:13] LABS: Collection Type, Urine Clean Catch
[2025-01-08 11:38] LABS: Bilirubin,Urine Negative (Negative); Blood,Urine Negative (Negative); Clarity,Urine Clear (Clear/Hazy); Color,Urine Lt-Yellow (Lt Yel-Yel); Glucose, Urine Negative (Negative); Ketones,Urine Negative (Negative); Leukocyte Esterase,Urine Negative (Negative); Nitrite,Urine Negative (Negative); PH,Urine 5.5 (5.0-7.0); Protein,Urine Negative (Neg - Trace); RBC,Urine 3 /hpf (0-3); Squamous Epithelial Cell,Urine < 1 /hpf (0-5); Urobilinogen,Urine Negative mg/dL (0.0-1.0); WBC,Urine 1 /hpf (0-5)
[2025-01-08 11:46] LABS: Creatinine MALB Rnd Ur 137 mg/dL (30-125); Microalbumin Creat Ratio 3 mg/gCrea (<30); Microalbumin, Random Urine 4 mg/L (0-300)
== END | disposition home or self-care (01) ==
LOC: COPL 08:03
PROVIDERS: PCP Family Medicine; Referring Provider Internal Medicine; Visit Provider Internal Medicine
DX: I12.9 Hypertensive chronic kidney disease with stage 1 through stage 4 chronic kidney disease, or unspecified chronic kidney disease (principal); N18.30 Chronic kidney disease, stage 3 unspecified; E78.5 Hyperlipidemia, unspecified
CPT/HCPCS: 36415; 80053; 80061; 81001; 82043; 82570; 83970; 85025

== ENCOUNTER 2025-04-08 18:57 | Inpatient (IN) | payer MEDICARE, SELFPAY ==
[2025-04-08 18:58] VITALS: BMI 40.7
--- NOTE | 2025-04-08 19:02 | EKG_ITS ---
[facility] Test Date: 2025-04-08 Pat Name: RENALDO CHRISTINE Department: Room: - Gender: Female Strategic Debriefing Specialist: : 1950 Requested By: ED Temporary Provider Order Number: [id number] Reading MD: ED Temporary Provider Measurements Intervals Homer Rate: 125 P: WA: QRS: 54 QRSD: 98 T: -5 QT: 335 QTc: 484 Interpretive Statements ATRIAL FIBRILLATION WITH RAPID VENTRICULAR RESPONSE NONSPECIFIC ST & T-WAVE ABNORMALITY ABNORMAL RHYTHM ECG No previous ECG available for comparison /store/S0/[id number]/ecg/[id number].pdf
[2025-04-08 19:28] VITALS: BP 174/79; PULSE 128; RESP 18; TEMP 36.6; O2SAT 96
--- NOTE | 2025-04-08 19:42 | XR_ITS ---
Examination: PA chest single view TECHNIQUE: Upright PA chest single view Date and time: April 08, 2025 1936 hours INDICATIONS: Shortness of breath high blood pressure today. FINDINGS: Early left perihilar pneumonia Normal heart size Right lung clear Moderate vascular congestion IMPRESSION: Early left perihilar pneumonia
[2025-04-08 19:50] LABS: Basophils # (Auto) 0.1 Thou/mm3 (0.0-0.2); Basophils % (Auto) 1 % (0-2.5); Eosinophils # (Auto) 0.2 Thou/mm3 (0.0-0.5); Eosinophils % (Auto) 2 % (0-10); Hematocrit 35.9 % (36.0-46.0); Hemoglobin 11.9 g/dL (12.0-16.0); Immature Granulocytes Auto 0.03 Thou/mm3 (0.00-0.00); Lymphocytes # (Auto) 1.7 Thou/mm3 (1.0-4.8); Lymphocytes % (Auto) 17 % (10-50); Mean Corpuscular HGB Conc 33.1 g/dl (31.0-37.0); Mean Corpuscular Hemoglobin 29.3 pg (25.0-35.0); Mean Corpuscular Volume 88 fL (80-100); Monocytes # (Auto) 0.7 Thou/mm3 (0.0-0.8); Monocytes % (Auto) 7 % (0-12); Neutrophils # (Auto) 7.4 Thou/mm3 (1.8-7.7); Neutrophils % (Auto) 74 % (37-80); Nucleated Red Blood Cell # 0.00 Thou/mm3 (0.00-0.00); Nucleated Red Blood Cell % 0 /100 WBC (0); Platelet Count 231 Thou/mm3 (140-440); RDW Standard Deviation 45.1 fL (36.4-46.3); Red Blood Count 4.06 Miln/mm3 (4.00-5.20); White Blood Count 10.0 Thou/mm3 (3.6-11.0)
[2025-04-08 20:03] LABS: Alanine Aminotransferase 12 U/L (10-49); Albumin, Serum 4.6 gm/dL (3.4-4.8); Albumin/Globulin Ratio 1.8 (1.2-2.2); Alkaline Phosphatase 77 U/L (46-116); Anion Gap 13 (7-16); Aspartate Amino Transferase 13 U/L (0-34); BUN/Creatinine Ratio 17 Ratio (12-20); Bilirubin,Total 0.2 mg/dL (0.3-1.2); Blood Urea Nitrogen 24 mg/dL (9-23); Calcium 9.6 mg/dL (8.3-10.6); Calcium (Corrected) 9.6 mg/dL (8.5-10.1); Carbon Dioxide 21.3 mMol/L (20.0-31.0); Chloride 108 mMol/L (98-107); Creatinine (Component) 1.4 mg/dL (0.6-1.3); Estimated Creatinine Clearance 42.4 mL/min (>60); Globulin 2.5 gm/dL (2.3-3.5); Glucose 179 mg/dL (74-106); Osmolality,Calculated 291 (275-295); Potassium 3.8 mMol/L (3.4-5.1); Sodium 142 mMol/L (136-145); Total Protein 7.1 gm/dL (5.7-8.2); eGFR 39 See Note
[2025-04-08 20:11] LABS: INR 1.0 (0.9-1.3); Partial Thromboplastin Time 28.8 Seconds (22.0-36.0); Prothrombin Time 10.7 Seconds (9.0-12.2)
[2025-04-08 20:23] LABS: D-Dimer < 250 ng/mL (<600)
--- NOTE | 2025-04-08 20:25 | PD.EDARRY ---
ED Arrhythmia Palp. RME/HPI General Chief Complaint: Arrhythmia/Palpitations Stated Complaint: RAPID HR, TODAY, BACK PAIN x 1 WEEK Arrival date/time: 04/08/25 18:57 RME / HPI RME / HPI narrative: This section includes all my notes and documentations, including HPI, PE, and ED course. 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 Patient also has had upper back pain for the last one week. No fever, chills, N/V, dizziness or any other associated symptoms. Temp Recruiter is Dr. Lindo. No other complaints reported. ROS: All negative except as documented in HPI. Physical Exam: General: Alert and oriented. Hypoxia noted. Eyes: Conjunctivae and lids clear. ENT: No nasal congestion. Neck: Supple. Heart: Irregularly irregular (125 bpm). Lungs: No respiratory distress. Good air movement. No rhonchi, wheezing, rales. Abdomen: Soft and nontender. Skin: Warm and dry. Neuro: Alert and oriented X 3. I reviewed all diagnostic test results. My interpretation of the EKG is aFib RVR with nonspecific ST-T changes. My interpretation of the chest x-ray is equivocal infiltrates. Blood tests are unremarkable. COVID/Influenza negative. At this point, diagnoses include Atrial fibrillation with rapid ventricular response, Acute respiratory failure with hypoxia. Treatment here included Oxygen and Cardizem bolus/drip. Some improvement noted. I discussed the case with our hospitalist. About the presentation and exam and diagnostics and treatments here. And need of further care in the hospital. Will accept the patient. Baldemar Parry MD Related Data Home Medications ?Medication ?Instructions ?Recorded ?Confirmed dronedarone 400 mg tablet (Multaq) 400 mg PO BID ##0 11/19/16 12/21/24 omeprazole 40 mg capsule,delayed 40 mg PO QDAY ##0 11/19/16 12/23/24 release dexlansoprazole 60 mg 60 mg PO QDAY 02/29/20 12/21/24 capsule,biphase delayed release (Dexilant) ferrous sulfate 325 mg (65 mg 325 mg PO QDAY 02/29/20 12/23/24 iron) tablet amlodipine 5 mg-olmesartan 40 mg 1 tab PO QDAY 04/03/21 12/21/24 tablet (Arthur) hydralazine 100 mg tablet 100 mg PO BID 05/12/21 12/21/24 apixaban 5 mg tablet (Eliquis) 5 mg PO BID 12/21/24 12/21/24 Previous Rx's ?Medication ?Instructions ?Recorded doxycycline hyclate 100 mg tablet 100 mg PO BID #14 tabs 09/05/24 Allergies Allergy/AdvReac Type Severity Reaction Status Date / Time cephalexin (From Keflex) Allergy Severe Blurry Verified 04/08/25 19:01 Vision chlorhexidine Allergy Severe HIVES Verified 04/08/25 19:01 erythromycin base Allergy Severe HIVES Verified 04/08/25 19:01 levofloxacin (From Levaquin) Allergy Severe Redness of Verified 04/08/25 19:01 Skin Penicillins Allergy Severe SWELLING Verified 04/08/25 19:01 Sulfa (Sulfonamide Allergy Severe HIVES, Verified 04/08/25 19:01 Antibiotics) SWELLING Review of Systems Review of Systems Systems Reviewed: All systems reviewed, normal except as documented ED Exam Narrative Physical exam: As noted in HPI. Course Course Course Narrative: CXR is ordered for determining the etiology of palpitations. Quality Measures none Orders Category Date Time Status Bedside COVID-19 Antigen Test NOW Care 04/08/25 19:41 Active Bedside Influenza A&B Antigen Test NOW Care 04/08/25 19:41 Active EKG (ED ONLY) *Do not use* NOW Care 04/08/25 19:02 Completed Saline [Insert IV] NOW Care 04/08/25 19:41 Active EKG (ED Only) Stat Exams 04/08/25 19:02 Draft XR chest 1V portable Stat Exams 04/08/25 19:42 Completed BNP [B-Type Natriuretic Peptide] Stat Lab 04/08/25 19:26 Received Bilirubin,Direct Stat Lab 04/08/25 19:42 Ordered CBC Stat Lab 04/08/25 19:26 Completed Comprehensive Metabolic Panel Stat Lab 04/08/25 19:26 Received D-Dimer Stat Lab 04/08/25 19:26 Received Free T4 (Free Thyroxine) Stat Lab 04/08/25 19:42 Ordered Magnesium Stat Lab 04/08/25 19:42 Ordered Partial Thromboplastin Time Stat Lab 04/08/25 19:26 Completed Prothrombin Time with INR Stat Lab 04/08/25 19:26 Completed TSH [Thyroid Stimulating Hormone] Stat Lab 04/08/25 19:42 Ordered Troponin I Stat Lab 04/08/25 19:42 Ordered Urinalysis Stat Lab 04/08/25 19:03 Ordered Dextrose 5%-Water [D5w] 100 ml Med 04/08/25 19:41 Active Diltiazem Inj [Cardizem Inj] 125 mg IV 5 mg/hr Diltiazem Inj [Cardizem Inj] Med 04/08/25 19:41 Discontinued 20 mg IV X1 ONE Vital Signs Vital signs: Vital Signs Temperature 98 F 04/08/25 19:28 Pulse Rate 128 H 04/08/25 19:28 Respiratory Rate 18 04/08/25 19:28 Blood Pressure 174/79 H 04/08/25 19:28 Pulse Oximetry (%) 96 04/08/25 19:28 Oxygen Delivery Method Room Air 04/08/25 19:28 Arrhythmia/Palpitations MDM Narrative MDM Narrative:: 75yo female with a history of aFib on Eliquis, HTN presents to the ED for a 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 Patient also has had upper back pain for the last one week. No fever, chills, N/V, dizziness or any other associated symptoms. Temp Recruiter is Dr. Lindo. No other complaints reported. Patient data External records reviewed:: [facility] previous records (Per chart review, patient was admitted here on 12/21/24 for aFib RVR.) Clinical information provided by:: patient Social determinants that could affect healthcare access:: none Patient has the following chronic illnesses:: aFib, HTN How is presenting disease/condition affected by chronic disease/condition?: caused by Evaluation data The following diagnostics were reviewed and interpreted by me:: lab results, radiology exam(s) and EKG tracing(s) (My interpretation of the EKG is: Atrial fibrillation with RVR (125 bpm) with nonspecific ST-T changes. Baldemar Parry MD) Lab and/or radiology exams considered but not ordered:: none Interpretation Summary: I reviewed all diagnostic test results. My interpretation of the EKG is aFib RVR with nonspecific ST-T changes. My interpretation of the chest x-ray is equivocal infiltrates. Blood tests are unremarkable. COVID/Influenza negative. Medications / Prescriptions Medications or Prescriptions considered but not ordered:: none Medication administrations:: Medication Administration History Diltiazem HCl 125 mg/ Dextrose 125 mls @ 5 mls/hr IV .Q24H KIRBY Stop: 05/08/25 19:40 Discontinued Medications Diltiazem HCl (Diltiazem Inj 5 Mg/Ml Vial 5 Ml) 20 mg IV X1 ONE Stop: 04/08/25 19:42 Cardizem and oxygen Consultations Consultation(s) initiated? (list below): Yes Consultation #1 (Physician, Specialty, Details): I discussed the case with our hospitalist. About the presentation and exam and diagnostics and treatments here. And need of further care in the hospital. Will accept the patient. Diagnosis Differential diagnosis arrhythmia/palpitations: palpitations, anxiety, sinus tachycardia, artial fibrillation, artial flutter, ventricular premature beats, supraventricular tachycardia, ventricular tachycardia and WPW Most likely diagnosis given after review of the tests above:: Atrial fibrillation with rapid ventricular response, Acute respiratory failure with hypoxia Admission Indicated Admission indicated?: indicated Explain why admission is indicated or not indicated:: Atrial fibrillation with rapid ventricular response, Acute respiratory failure with hypoxia Admission Request Was there a request for admission?: Yes Admission Attestation Admission request attestation: Discussed case with Hospitalist service regarding admission. Discussed patients ED course, exam findings, labs, and radiology results. The Hospitalist [agrees] to accept the patient for admission. Disposition Plan Disposition Plan: Admit Discharge Plan Plan Patient Disposition: Admit Acute Care w/in Hospital Problem List Clinical Impression: Atrial fibrillation with rapid ventricular response, Acute respiratory failure with hypoxia
[2025-04-08 20:26] LABS: B-Type Natriuretic Peptide 127 pg/mL (0-100)
[2025-04-08 21:02] VITALS: BP 123/77; PULSE 110
[2025-04-08] MEDS: DILTIAZEM INJ 5 MG/ML VIAL 5 ML 20 MG IV (21:02)
[2025-04-08 21:07] LABS: Bilirubin,Direct < 0.1 mg/dL (0.0-0.3); Free T4 (Free Thyroxine) 1.13 ng/dL (0.89-1.76); Magnesium 1.8 mg/dL (1.6-2.6); Thyroid Stimulating Hormone 3.83 uIU/mL (0.55-4.78); Troponin I < 0.020 ng/mL (0.0-0.045)
[2025-04-08 22:01] VITALS: BP 151/87; PULSE 109; RESP 20; TEMP 36.9; O2SAT 92
[2025-04-08 22:09] LABS: Collection Type, Urine Clean Catch; Squamous Epithelial Cell,Urine 0 /hpf (0-5)
[2025-04-08 22:10] VITALS: RESP 12; O2SAT 93
[2025-04-08 22:20] LABS: Bilirubin,Urine Negative (Negative); Blood,Urine Negative (Negative); Clarity,Urine Clear (Clear/Hazy); Color,Urine Lt-Yellow (Lt Yel-Yel); Glucose, Urine Negative (Negative); Ketones,Urine Negative (Negative); Leukocyte Esterase,Urine Negative (Negative); Nitrite,Urine Negative (Negative); PH,Urine 6.0 (5.0-7.0); Protein,Urine Negative (Neg - Trace); RBC,Urine 2 /hpf (0-3); Specific Gravity,Urine 1.011 (1.001-1.035); Urobilinogen,Urine Negative mg/dL (0.0-1.0); WBC,Urine < 1 /hpf (0-5)
[2025-04-08 23:00] VITALS: BP 140/82; PULSE 108; RESP 13; TEMP 37.1; O2SAT 91
[2025-04-08 23:01] VITALS: BP 140/82; PULSE 111
[2025-04-08] MEDS: DILTIAZEM INJ 125 MG in DEXTROSE 5%-WATER 100 ML IV (23:01)
--- NOTE | 2025-04-08 23:39 | PD.RESHP ---
Documentation for date of: 04/08/25 HPI History of Present Illness Chief complaint: Tachycardia History of present illness: 75-year-old female with past medical history of chronic atrial fibrillation, hypertension, history of DVT (right lower extremity) presenting to the ED on 04/08 with an episode of palpitations and racing heart rate. Of note, patient was admitted on December 2024 with similar presentation secondary to atrial fibrillation exacerbation from cellulitis. Patient states that for several months her atrial fibrillation was well-controlled but sometime around 5 PM on 04/08 she started feeling her heart racing. Patient was sitting and relaxing on the couch when the episode started to begin. Patient denies having sick contacts but does state that she has been having some chills and sneezing at home. Patient follows Dr. Ramila Lindo in [place] and is in the process of making an appointment with Dr. Mcfadden for ablation of her atrial fibrillation. Patient denies having any other concerning symptoms such as chest pain/tightness, shortness of breath although she is currently on 2 L saturating well, no orthopnea, paroxysmal dyspnea or dizziness. Medical history: As listed Surgical history: Hysterectomy 1992, tonsillectomy 1969, back surgery 2012, coronary angiogram 2013 Allergies: Chlorhexidine and erythromycin causes hives, levofloxacin causes redness of skin, penicillin swelling, sulfa hives/swelling Medications: Pending official med rec, patient on metoprolol succinate 50 mg, hydralazine 100 mg 3 times daily, Eliquis 5 mg p.o. twice daily Family history: Noncontributory Social history: Patient lives at home, denies any alcohol, tobacco or illicit drug use. ROS: All 12 systems assessed and the patient denies unless otherwise stated in HPI In the ED, patient presented hypertensive 174/79, heart rate 128, respiratory rate 18, afebrile satting 96 on initially room air but put on 2 L for mild decompensation to low 90s. Pertinent lab findings included hemoglobin 11.9 with MCV 88, WBC of 10, BUN 24, creatinine 1.4, magnesium 1.8, troponin less than 0.020, BNP 127, TSH 3.83 and free T41.13. Urinalysis was negative for any signs of infection. EKG showed A-fib with RVR with nonspecific ST changes noted. Chest x-ray showed early left perihilar pneumonia with some moderate vascular congestion. Patient will be admitted for A-fib with RVR on diltiazem drip and treatment for community-acquired pneumonia with IV and oral antibiotics. Exam Vital Signs Temp Pulse Resp BP Pulse Ox O2 Del Method O2 Flow Rate 98.4 F 111 H 12 140/82 H 93 L Nasal Cannula 2 04/08/25 22:01 04/08/25 23:01 04/08/25 22:10 04/08/25 23:01 04/08/25 22:10 04/08/25 22:10 04/08/25 22:10 Narrative Exam Physical Exam: GENERAL: Awake, answering questions appropriately, appears stated age HEENT: NC/AT. Moist mucosa. PERRLA/EOMI. CARDIO: Irregularly irregular, no obvious murmurs, no JVD. PULM: No coughing or visible SOB. Lungs CTA B/L but appears to be on 1 to 2 L of nasal cannula GI: Abdomen soft, NT/ND, +BS. SKIN/MSK/EXT: No wounds/rashes/edema/amputations noted. +Pedal pulses present B/L. NEURO: Oriented x3, no focal neurologic deficits, moves extremities x 4 Results: Labs 04/08/25 19:26 04/08/25 19:26 Labs: Short CBC 04/08/25 Range/Units 19:26 WBC 10.0 (3.6-11.0) Thou/mm3 Hgb 11.9 L (12.0-16.0) g/dL Hct 35.9 L (36.0-46.0) % Plt Count 231 (140-440) Thou/mm3 [facility] 04/08/25 19:26 Sodium 142 Potassium 3.8 D Chloride 108 H Carbon Dioxide 21.3 BUN 24 H Creatinine 1.4 H Glucose 179 H D Calcium 9.6 Cardiac Enzymes 04/08/25 Range/Units 19:26 Troponin I < 0.020 (0.0-0.045) ng/mL Liver Function 04/08/25 Range/Units 19:26 Total Bilirubin 0.2 L (0.3-1.2) mg/dL Direct Bilirubin < 0.1 (0.0-0.3) mg/dL AST 13 (0-34) U/L ALT 12 (10-49) U/L Alkaline Phosphatase 77 (46-116) U/L Albumin 4.6 (3.4-4.8) gm/dL Urine 04/08/25 Range/Units 21:57 Urine Color Lt-Yellow (Lt Yel-Yel) Urine Clarity Clear (Clear/Hazy) Urine pH 6.0 (5.0-7.0) Ur Specific [place] 1.011 (1.001-1.035) Urine Protein Negative (Neg - Trace) Urine Glucose (UA) Negative (Negative) Quality Measures Quality Measures none Advance care planning discussed with:: patient Medications Home Medications and Allergies Home Medications ?Medication ?Instructions ?Recorded ?Confirmed ?Type omeprazole 40 mg capsule,delayed 40 mg PO QDAY ##0 11/19/16 04/09/25 History release dexlansoprazole 60 mg 60 mg PO QDAY 02/29/20 04/09/25 History capsule,biphase delayed release (Dexilant) amlodipine 5 mg-olmesartan 40 mg 1 tab PO QDAY 04/03/21 04/09/25 History tablet (Arthur) hydralazine 100 mg tablet 100 mg PO Q8H 05/12/21 04/09/25 History apixaban 5 mg tablet (Eliquis) 5 mg PO BID 12/21/24 04/09/25 History dronedarone 400 mg tablet (Multaq) 400 mg PO BID 04/09/25 04/09/25 History loteprednol etabonate 0.5 % eye 1 drp Both eyes BID 04/09/25 04/09/25 History drops,suspension metoprolol succinate 50 mg 50 mg PO HS 04/09/25 04/09/25 History tablet,extended release 24 hr Allergies Allergy/AdvReac Type Severity Reaction Status Date / Time cephalexin (From Keflex) Allergy Severe Blurry Verified 04/08/25 19:01 Vision chlorhexidine Allergy Severe HIVES Verified 04/08/25 19:01 erythromycin base Allergy Severe HIVES Verified 04/08/25 19:01 levofloxacin (From Levaquin) Allergy Severe Redness of Verified 04/08/25 19:01 Skin Penicillins Allergy Severe SWELLING Verified 04/08/25 19:01 Sulfa (Sulfonamide Allergy Severe HIVES, Verified 04/08/25 19:01 Antibiotics) SWELLING Visit Medications Acetaminophen (Acetaminophen 325 Mg Tablet) 650 mg PO Q6H PRN PRN Reason: Pain 1-3 and/or Fever >100.1 Stop: 05/08/25 23:32 Apixaban (Apixaban 2.5 Mg Tablet) 5 mg PO BID [facility] Stop: 05/09/25 08:59 Apixaban (Apixaban 2.5 Mg Tablet) 5 mg PO X1 ONE Stop: 04/08/25 23:34 Doxycycline Hyclate (Doxycycline 100 Mg Tablet) 100 mg PO BID [facility] Stop: 04/16/25 08:59 Diltiazem HCl 125 mg/ Dextrose 125 mls @ 5 mls/hr IV .Q24H [facility] Stop: 05/08/25 22:07 Last Admin: 04/08/25 23:01 Dose: 5 mg/hr, 5 mls/hr Magnesium Sulfate (Magnesium Sulfate Ivpb) 4 gm in 50 mls @ 12.5 mls/hr IV X1 ONE Stop: 04/09/25 03:35 Ceftriaxone Sodium/Dextrose (Rocephin/D5w 1gm Iv Premix) 1 gm in 50 mls @ 100 mls/hr IV QDAY [facility] Stop: 04/15/25 23:38 Ondansetron HCl (Ondansetron Inj 2 Mg/Ml Inj 2 Ml) 4 mg IVP Q6H PRN; Protocol PRN Reason: NAUSEA OR VOMITING Stop: 05/08/25 23:32 Potassium Chloride (Potassium Chloride 20 Meq Tabcr) 40 meq PO X1 ONE Stop: 04/08/25 23:37 Sennosides (Senna Tablet) 1 tab PO QDAY PRN; Protocol PRN Reason: constipation Stop: 05/08/25 23:32 Discontinued Medications Diltiazem HCl (Diltiazem Inj 5 Mg/Ml Vial 5 Ml) 20 mg IV X1 ONE Stop: 04/08/25 19:42 Last Admin: 04/08/25 21:02 Dose: 20 mg Diltiazem HCl 125 mg/ Dextrose 125 mls @ 5 mls/hr IV .Q24H [facility] Stop: 05/08/25 19:40 Last Admin: 04/08/25 21:25 Dose: Not Given Metoprolol Tartrate (Metoprolol Tartrate 25 Mg Tablet) 25 mg PO X1 ONE Stop: 04/08/25 22:06 Last Admin: 04/08/25 23:02 Dose: Not Given Assessment & Plan Plan 75-year-old female with past medical history of chronic atrial fibrillation, hypertension, history of DVT (right lower extremity) presenting to the ED on 04/08 with an episode of palpitations and racing heart rate will be admitted for A-fib with RVR on diltiazem drip and treatment for community-acquired pneumonia with IV and oral antibiotics. #A-fib RVR #Chronic atrial fibrillation Patient has history of atrial fibrillation, on home Multaq 400 mg p.o. twice daily, metoprolol succinate 50 mg daily and Eliquis 5 mg p.o. twice daily Patient follows with product info specialist Dr. Ramila Lindo and EP product info specialist Dr. Castro - process of scheduling appointment with Dr. Mcfadden for ablation Per history, patient started developing palpitations and elevated heart rate sometime around 5 PM on 04/08 while sitting Patient denies having any concerning cardiac symptoms such as chest pain, orthopnea, PND, lower extremity edema but does have mild shortness of breath as noted below In the ED, patient was confirmed to have A-fib RVR with EKG but troponin was within normal limits and BNP was 127 Patient given a x 1 diltiazem 20 mg, followed by diltiazem drip Plan: Telemetry monitoring Continue diltiazem drip Continue patient's home Eliquis 5 mg p.o. twice daily Transition to p.o. medications when appropriate Replete electrolytes as needed #Acute hypoxic respiratory failure secondary to #Community-acquired pneumonia Differentials also includes respiratory failure secondary to A-fib causing some degree of heart failure less likely to be PE or pneumothorax 3.0?points Moderate risk group: 16.2% chance of PE in an ED population but D-dimer negative Patient denies having any sick contacts but does state that she has been having some chills and sneezing at home Clinically speaking, patient has low suspicion for pneumonia she does not have fever, no cough with sputum production and does not appear toxic but is requiring 2 L oxygen via nasal cannula Chest x-ray showed early left perihilar pneumonia with some moderate vascular congestion. Plan: Oxygen supplementation as needed IV ceftriaxone 1 g daily and doxycycline 100 mg p.o. twice daily Ambulate the patient as tolerated PT eval #Hypertension Patient presented with blood pressure of 174/79 in the ED Per med rec, patient is on hydralazine 100 mg 3 times daily along with combination amlodipine olmesartan Patient's blood pressure is fluctuating secondary to the A-fib with RVR Plan: wrapper layer and examiner soft work as above Restarted patient's amlodipine 10 mg daily Will consider restarting hydralazine 100 mg 3 times daily if necessary #History of DVT Chronic medical condition, nonpertinent to the following presentation On examination, patient does not have lower extremity swelling noted or any tenderness Patient adequately covered with Eliquis 5 mg Plan: Monitor for any acute changes #Normocytic anemia Chronic medical condition, shows improvement in previous hemoglobin Plan: Outpatient follow-up and workup Hospital Management: Lines: PIV Diet: Cardiac Bowel: Senna as needed GI prophylaxis: Not needed DVT prophylaxis: Eliquis 5 mg p.o. twice daily coverage Dispo: IV diltiazem drip for A-fib RVR and IV and oral antibiotics for pneumonia Code: Full Patient seen and assessed with attending Dr. Carolina Sauceda, DO PGY-2 Internal Medicine - GME Attending Provider Attestation/Addendum I have examined the patient, reviewed labs and imaging findings, discussed the case with the resident(s), and reviewed entered orders. I agree with the plan of care as outlined in this note, with these additional summaries/recommendations: After examination of the patient and review of the clinical data, I feel that this patient needs admission to the hospital for further treatment and evaluation. Patient is a 75-year-old female with a medical history of primary hypertension, chronic atrial fibrillation, history of DVT right lower extremity, and morbid obesity who presents to [facility] emergency department on 04/08/2025 with chief complaint of palpitations. Patient seen at bedside. She reports ongoing palpitations although denies chest pain. She states she follows cardiology Dr. Lindo. Patient diagnosed with atrial fibrillation with rapid ventricular response. EKG showed rates into the 120s. Patient appears to have longstanding persistent atrial fibrillation. Trigger for RVR possibly related to infection, low suspicion for PE as D-dimer within normal limits.. Patient denies any recent history of bleeding or other contraindication for anticoagulation. Patient is currently hemodynamically stable. [id number] score 4 points indicating 6.7% risk of stroke/TIA/systemic embolism. Has bled score 2 points indicating 4.1% risk of major bleed per year. TSH and free T4 relatively within normal limits. Order echocardiogram. Keep potassium greater than 4 and magnesium greater than 2. Continue home Eliquis. Awaiting home medication reconciliation but patient appears to take metoprolol for rate control. Patient was started on diltiazem gtt. in the emergency room which we will continue for now. Chest x-ray shows early left perihilar pneumonia although patient not endorsing productive cough. We will continue with IV antibiotics for now. Patient found to have acute kidney injury most likely prerenal azotemia in the setting of RVR. Avoid nephrotoxic agents and renally dose medications. No intervention needed at this time and repeat renal panel in AM. If not improved we will proceed with small bolus. Resume home antihypertensives as tolerated. Patient updated on the plan and in agreement. All questions answered to satisfaction. Please see residents note for additional details and management. Dr. Carolina MD
[2025-04-09] VITALS (13 sets, daily range): BP systolic 114–165; BP diastolic 46–88; PULSE 51–66; RESP 14–27; TEMP 36.1–36.6; O2SAT 95–100; BMI 39.9
--- NOTE | 2025-04-09 00:12 | PC.NURSE ---
0010 CALLED RESIDENTS WITH INFORMATION THAT PT IS ALLERGIC TO PENICILLIN, PER RESIDENT DR HIEN KELLY TO GIVE ROCEPHIN.
[2025-04-09] MEDS: APIXABAN 2.5 MG TABLET 5 MG PO ×3 (00:50→21:33)
--- NOTE | 2025-04-09 01:05 | PC.NURSE ---
Report called to floor nurseAnamaria RN
[2025-04-09] MEDS: cefTRIAXone/D5w 1gm IV premix 1 GM/50 ML BAG IV ×2 (02:37→08:46)
[2025-04-09] MEDS: Magnesium Sulfate 4 GM Ivpb 4 GM/50 ML BAG IV (03:47)
[2025-04-09 06:41] LABS: Basophils # (Auto) 0.0 Thou/mm3 (0.0-0.2); Basophils % (Auto) 1 % (0-2.5); Eosinophils # (Auto) 0.2 Thou/mm3 (0.0-0.5); Eosinophils % (Auto) 3 % (0-10); Hematocrit 32.4 % (36.0-46.0); Hemoglobin 10.7 g/dL (12.0-16.0); Immature Granulocytes Auto 0.01 Thou/mm3 (0.00-0.00); Lymphocytes # (Auto) 1.4 Thou/mm3 (1.0-4.8); Lymphocytes % (Auto) 24 % (10-50); Mean Corpuscular HGB Conc 33.0 g/dl (31.0-37.0); Mean Corpuscular Hemoglobin 29.2 pg (25.0-35.0); Mean Corpuscular Volume 88 fL (80-100); Monocytes # (Auto) 0.6 Thou/mm3 (0.0-0.8); Monocytes % (Auto) 10 % (0-12); Neutrophils # (Auto) 3.4 Thou/mm3 (1.8-7.7); Neutrophils % (Auto) 62 % (37-80); Nucleated Red Blood Cell # 0.00 Thou/mm3 (0.00-0.00); Nucleated Red Blood Cell % 0 /100 WBC (0); Platelet Count 186 Thou/mm3 (140-440); RDW Standard Deviation 44.8 fL (36.4-46.3); Red Blood Count 3.67 Miln/mm3 (4.00-5.20); White Blood Count 5.5 Thou/mm3 (3.6-11.0)
[2025-04-09 07:25] LABS: Alanine Aminotransferase 10 U/L (10-49); Albumin, Serum 3.9 gm/dL (3.4-4.8); Albumin/Globulin Ratio 1.8 (1.2-2.2); Alkaline Phosphatase 59 U/L (46-116); Anion Gap 11 (7-16); Aspartate Amino Transferase 11 U/L (0-34); BUN/Creatinine Ratio 17 Ratio (12-20); Bilirubin,Total 0.2 mg/dL (0.3-1.2); Blood Urea Nitrogen 20 mg/dL (9-23); Calcium 9.1 mg/dL (8.3-10.6); Calcium (Corrected) 9.2 mg/dL (8.5-10.1); Carbon Dioxide 24.2 mMol/L (20.0-31.0); Chloride 111 mMol/L (98-107); Creatinine (Component) 1.2 mg/dL (0.6-1.3); Estimated Creatinine Clearance 49.0 mL/min (>60); Globulin 2.2 gm/dL (2.3-3.5); Glucose 111 mg/dL (74-106); Magnesium 2.5 mg/dL (1.6-2.6); Osmolality,Calculated 294 (275-295); Phosphorous 4.4 mg/dL (2.4-5.1); Potassium 4.6 mMol/L (3.4-5.1); Sodium 146 mMol/L (136-145); Total Protein 6.1 gm/dL (5.7-8.2); eGFR 47 See Note
--- NOTE | 2025-04-09 08:28 | EKG_ITS ---
[facility] Test Date: 2025-04-09 Pat Name: RENALDO CHRISTINE [facility] Gender[facility] Magnetic Grinder Operator: STEPHANE : 1950 Requested By: Gilson Pruitt Order Number: [id number] Reading MD: Gilson Pruitt Measurements Intervals Boyd Rate: 57 P: 76 OR: 189 QRS: 49 QRSD: 93 T: 30 QT: 445 QTc: 435 Interpretive Statements SINUS BRADYCARDIA NONSPECIFIC T-WAVE ABNORMALITY Compared to ECG 04/08/2025 19:23:27 Atrial fibrillation no longer present T-wave abnormality still present /store/S0/[id number]
[2025-04-09] MEDS: DOXYCYCLINE 100 MG TABLET PO ×2 (08:47→21:33)
--- NOTE | 2025-04-09 10:17 | PC.NURSE ---
Patient complaints of anxiety, heart pounding. Dr Hsieh to see patient. hr 58, b/p 189/79 b/p 96.9 02 sats of 96% on 2 liters. spot check blood sugar 110. Patient says she just got to use restroom and started to feel ill. No new orders received. Will continue to monitor. --JA
[2025-04-09] MEDS: NASACORT NASAL (11:25)
--- NOTE | 2025-04-09 14:52 | ESPR_ITS ---
<Statement entered by Davonte Landon MD - 04/09/25 17:06> Patient was seen and examined at the bedside. Admitted for acute on chronic A- fib patient was given diltiazem which dropped blood pressure therefore diltiazem drip was placed on hold. Resume patient's home metoprolol since heart rate improved. Currently pending on echocardiogram will continue with Rocephin and doxycycline to cover for community-acquired pneumonia and follow-up with culture results. Patient's home amlodipine was resumed and hydralazine placed given uncontrolled blood pressure. I discussed and supervised with the mba intern physician who took care of this patient. I personally saw and examined the patient. I agree with most of the assessment and plan. Disclaimer: Despite multiple revisions, due to the dictation software being used, the document bellow may not be free of grammatical errors including phonetic/typographic errors. However, this does not deter from our commitment to providing health care in the patient's best interest in mind. Plan of care discussed with attending Physician Dr. Teodoro Landon MD PGY-3 Documentation for date of: 04/09/25 Subjective Subjective Interval history: Patient seen and examined at bedside. She denies palpitations, chest pain, shortness of breath, dizziness, or lightheadedness. She is now off supplemental oxygen and feels better overall. She has no new cough or sputum. Mild bilateral lower extremity edema noted but no associated pain. Exam Vital Signs Temp Pulse Resp BP Pulse Ox O2 Del Method O2 Flow Rate 97.4 F 66 27 H 144/58 H 97 Nasal Cannula 1 04/09/25 12:04/09/25 12:04/09/25 12:04/09/25 12:04/09/25 12:04/09/25 12:04/09/25 12:00 Narrative Exam General: Awake, alert, NAD, conversant CV: Irregularly irregular rhythm, no murmurs, trace bilateral pedal edema, no JVD Pulm: Lungs clear to auscultation bilaterally, no increased work of breathing, satting well on room air GI: Soft, NT/ND, +BS Neuro: AOx3, no focal deficits Ext: Moves all extremities, +pedal pulses, trace bilateral LE edema, no calf tenderness Objective Labs 04/10/25 05:25 04/10/25 05:25 Labs: Laboratory Results - last 24 hr 04/08/25 04/08/25 04/09/25 19:26 21:57 05:06 WBC 10.0 5.5 D RBC 4.06 3.67 L Hgb 11.9 L 10.7 L Hct 35.9 L 32.4 L MCV 88 88 MCH 29.3 29.2 MCHC 33.1 33.0 RDW Std Deviation 45.1 44.8 Plt Count 231 186 D Neut % (Auto) 74 62 Lymph % (Auto) 17 24 [place] % (Auto) 7 10 Eos % (Auto) 2 3 Baso % (Auto) 1 1 Neut # (Auto) 7.4 3.4 Lymph # (Auto) 1.7 1.4 [place] # (Auto) 0.7 0.6 Eos # (Auto) 0.2 0.2 Baso # (Auto) 0.1 0.0 Immature Gran # (Auto) 0.03 H 0.01 H Absolute Nucleated RBC 0.00 0.00 Immature Gran % 0 0 Nucleated RBC % 0 0 PT 10.7 INR 1.0 APTT 28.8 D-Dimer < 250 Sodium 142 146 H Potassium 3.8 D 4.6 D Chloride 108 H 111 H Carbon Dioxide 21.3 24.2 Anion Gap 13 11 BUN 24 H 20 Creatinine 1.4 H 1.2 Estim Creat Clear Calc 42.4 L 49.0 L eGFR 39 L 47 L BUN/Creatinine Ratio 17 17 Glucose 179 H D 111 H D Calculated Osmolality 291 294 Calcium 9.6 9.1 Corrected Calcium 9.6 9.2 Phosphorus 4.4 Magnesium 1.8 2.5 Total Bilirubin 0.2 L 0.2 L Direct Bilirubin < 0.1 AST 13 11 ALT 12 10 Alkaline Phosphatase 77 59 D Troponin I < 0.020 B-Natriuretic Peptide 127 H Total Protein 7.1 6.1 Albumin 4.6 3.9 D Globulin 2.5 2.2 L Albumin/Globulin Ratio 1.8 1.8 TSH 3.83 Free T4 1.13 Ur Collection Type Clean Catch Urine Color Lt-Yellow Urine Clarity Clear Urine pH 6.0 Ur Specific [place] 1.011 Urine Protein Negative Urine Glucose (UA) Negative Urine Ketones Negative Urine Blood Negative Urine Nitrite Negative Urine Bilirubin Negative Urine Urobilinogen (Auto) Negative Ur Leukocyte Esterase Negative Urine RBC 2 Urine WBC < 1 Ur Squamous Epith Cells 0 Urine Bacteria None Quality Measures Quality Measures none Advance care planning discussed with:: patient Assessment & Plan Assessment Current Active Medications: Generic Name Dose Route Start Last Admin Trade Name Freq PRN Reason Stop Dose Admin Acetaminophen 650 mg 04/08/25 23:33 Acetaminophen 325 Mg Tablet PO 05/08/25 23:32 Q6H PRN Pain 1-3 and/or Fever >100.1 Amlodipine Besylate 5 mg 04/09/25 09:00 04/09/25 08:46 Amlodipine Besylate 5 Mg Tablet PO 05/09/25 08:59 5 mg QDAY KIRBY Administration Apixaban 5 mg 04/09/25 09:00 04/09/25 08:46 Apixaban 2.5 Mg Tablet PO 05/09/25 08:59 5 mg BID KIRBY Administration Artificial Tears 0 drop 04/08/25 23:46 Artificial Tears 225 Drop/15 Ml Btl BOTH EYES 05/08/25 23:45 PRN PRN TO KEEP EYES MOIST Nasacort ( 0 ea 04/09/25 11:15 04/09/25 11:25 Triamcinolone NASAL 05/09/25 11:14 2 spray Acetonide Nasal DAILY KIRBY Administration [place] 55 Mcg) Doxycycline Hyclate 100 mg 04/09/25 09:00 04/09/25 08:47 Doxycycline 100 Mg Tablet PO 04/16/25 08:59 100 mg BID KIRBY Administration Hydralazine HCl 100 mg 04/09/25 08:30 04/09/25 08:47 Hydralazine Hcl 25 Mg Tablet PO 05/09/25 08:29 100 mg Q8H KIRBY Administration Diltiazem HCl 125 mg/ Dextrose 125 mls @ 5 mls/hr 04/08/25 22:08 04/09/25 03:41 IV 05/08/25 22:07 0 mg/hr .Q24H KIRBY 0 mls/hr Infusion 5 MG/HR Ceftriaxone Sodium/Dextrose 1 gm in 50 mls @ 100 mls/hr 04/08/25 23:39 04/09/25 08:46 Rocephin/D5w 1gm Iv Premix IV 04/15/25 23:38 100 mls/hr QDAY KIRBY Administration Ondansetron HCl 4 mg 04/08/25 23:33 Ondansetron Inj 2 Mg/Ml Inj 2 Ml IVP 05/08/25 23:32 Q6H PRN NAUSEA OR VOMITING Protocol Sennosides 1 tab 04/08/25 23:33 Senna Tablet PO 05/08/25 23:32 QDAY PRN constipation Protocol Plan 75F with chronic A-fib s/p A-fib with RVR, possible early CAP, now stable off O2, rate low, echo pending. #Acute on ch A-fib with RVR -Converted to sinus bradycardia Admitted for A-fib with RVR, now bradycardic after IV diltiazem, HR dropped to 40s. Denies palpitations or symptoms today. -[id number]?VASc score is 4.Has bled score= 3 --> moderate risk bleeding Plan: * Continue to hold diltiazem drip * Hold home metoprolol succinate * Continue Eliquis 5 mg PO BID * Telemetry monitoring * Replete electrolytes PRN * Await echo to further assess function * Keep Mg>2 and K>4 #Acute resp distress likely due to #Possible Community-acquired pneumonia Likely mild early pneumonia per CXR with mild initial hypoxia, now off O2, improved symptoms. Plan: * Continue IV ceftriaxone 1g daily + PO doxycycline 100 mg BID * Encourage ambulation * Monitor O2 status, repeat CXR if worsening #Uncontrolled Hypertension BP stable, likely fluctuating due to rate control. Plan: * Continue home amlodipine * Continue hydralazine? * Monitor BP trends #Lower extremity edema Mild trace pedal edema, no pain, likely mild fluid retention. Plan: * Monitor LE swelling * Elevate legs * Consider low-dose diuretic if edema worsens #Normocytic anemia Stable, Hgb 10.7. Plan: * Outpatient follow-up Health Maintenance: * Disposition: Continue inpatient monitoring * Feeding: Cardiac diet * Thromboprophylaxis: Eliquis for A-fib covers DVT prophylaxis * GI prophylaxis: Not indicated * Code status: Full ----- Plan discussed with attending physician Dr. Valerio and senior resident,Dr Barbi Ortega MD PGY-1 Internal Medicine Attending Provider Attestation/Addendum I, Alanna Valerio DO, attest that I was physically present for the pearl portions of the service and evaluated the patient with the resident and I reviewed and discussed the case with the resident and agree with the resident's findings and plans of care as documented above Patient seen and evaluated this AM. Patient reports dizziness and occasional shortness of breath on exertion. Patient had reported to PGY2 that she felt palpitations, but patient had HR of 50-60s on tele monitor at the time. Patient has had 3 ablations in the past and sees EP outpatient. Patient was on cardizem drip for Afib with RVR, but discontinued this AM due to bradycardia. Will continue cardiac monitoring at this time. If symptoms persist, consider Cardiology evaluation. Patient currently on doxy and rocephin for community acquired pneumonia. Will f/u with cultures.
--- NOTE | 2025-04-09 15:06 | PC.SS ---
HYPERCIL CORE TRANSFORMER ASSEMBLER conducted bedside contact with the patient conduct initial assessment and to discuss discharge planning.? Patient confirmed demographic information.? Patient is retired.? Patient resides alone at home. ?Patient does not utilize any form of DME to assist with ambulation.? Patient does not utilize home oxygen.? Patient describes the ability to complete ADL?s independently.? Patient identified daughter, Brianna Eli ; as surrogate medical decision maker.? Patient?s PCP is Dr. Moran.? Patient?s electromechanisms design drafter is Rafal Fischer.? Patient utilizes [facility] for medication services.? Patient does not participate with dialysis.? Plan is for the patient to return home at the time of discharge.? Family will provide transportation on behalf of the patient. ?No further discharge needs identified by the patient.? No further intervention required at this time, group social worker will be available to address any further concerns.? [address] is [address] [place] [address]. Next of Kin: Brianna Eli D/C Plan: Home
--- NOTE | 2025-04-09 15:28 | PC.PT ---
PT eval only. Patient was xI with bed mobility, transfers, and ambulation. Patient is safe to ambulate to the bathroom and in the halls with no AD and no staff assist. RN made aware.
[2025-04-09] MEDS: METOPROLOL SUCCINATE XL 25 MG TABCR 50 MG PO (21:33)
[2025-04-09] MEDS: LOTEPREDNOL 0.5% BOTH EYES (21:39)
[2025-04-09] MEDS: PANTOPRAZOLE 40 MG TABLET PO (23:15)
--- NOTE | 2025-04-09 23:57 | ECHO_ITS ---
Transthoracic Echo Report Ht (in): 65 Wt (lb): 245 Exam Location: Echo Lab Status: Inpatient Child Care Lead Teacher: Hollie Garcia Indications: Procedure Performed: BP: 123 / 54 HR: 51 Technical Quality: Technically Difficult Due To Body Habitus MEASUREMENTS (Male / Female) Normal Values 2D ECHO LV Diastolic Diameter PLAX 4.3 cm 4.2 - 5.9 / 3.9 - 5.3 cm LV Systolic Diameter PLAX 2.6 cm IVS Diastolic Thickness 1.5 cm 0.6 - 1.0 / 0.6 - 0.9 cm LVPW Diastolic Thickness 1.2 cm 0.6 - 1.0 / 0.6 - 0.9 cm LV Relative Wall Thickness 0.6 LVOT Diameter 1.7 cm LA Volume Index 49.7 cm?/m? 16 - 28 cm?/m? Ascending Aorta Diameter 3.1 cm M-MODE AV Cusp Separation MM 1.8 cm DOPPLER AV Peak Velocity 189.0 cm/s AV Peak Gradient 14.3 mmHg LVOT Peak Velocity 162.0 cm/s LVOT Peak Gradient 10.5 mmHg AV Area Cont Eq pk 1.9 cm? MV Area PHT 3.7 cm? Mitral E Point Velocity 124.0 cm/s Mitral A Point Velocity 63.5 cm/s Mitral E to A Ratio 2.0 LV E' Lateral Velocity 8.3 cm/s Mitral E to LV E' Lateral Ratio 15.0 LV E' Septal Velocity 7.9 cm/s Mitral E to LV E' Septal Ratio 15.6 TR Peak Velocity 322.0 cm/s TR Peak Gradient 41.5 mmHg PV Peak Velocity 144.0 cm/s PV Peak Gradient 8.3 mmHg FINDINGS Left Ventricle Normal left ventricular size and systolic function with no obvious regional wall motion abnormalities. Mild ventricular septal hypetrophy. There is grade III diastolic dysfunction of the left ventricle (restrictive filling pattern). . The ejection fraction is visually estimated at 65 %. Increased left ventricular velocities noted. Right Ventricle The right ventricle is moderately enlarged. The estimated right ventricular systolic pressure, 41 mmHg. RAP 10mmHg. Left Atrium The left atrial cavity size is severely increased. Right Atrium The right atrial cavity size is severely increased. Atrial Septum The interatrial septum appears normal with no evidence of a shunt. Aorta The aorta is normal by two-dimensional, color flow and Doppler interrogation. Mitral Valve The posterior mitral valve annulus is moderately calcified without stenosis. There is trace mitral regurgitation. Aortic Valve The aortic valve is trileaflet and normal by two-dimensional, color flow and Doppler interrogation. There is no significant aortic valve regurgitation. Tricuspid Valve The tricuspid valve is normal by two-dimensional, color flow and Doppler interrogation. There is mild tricuspid regurgitation. Pulmonic Valve The pulmonic valve is not well visualized. There is trace pulmonic valve regurgitation. Vessels The pulmonary artery appears normal. The inferior vena cava is dilated with >50% collapse. Pericardium The pericardium is normal by two-dimensional imaging. There is no significant pericardial effusion. CONCLUSIONS Indications: Afib With RVR LV Normal. Estimated EF 65%. Mild LVH. Normal RV. RVSP 41mmHg. RAP 10mmHg. Severe biatrial enlargement Moderate Posterior MV Annulus MAC. Trace MR. Mild TR. Trace PI. Dilated IVC. No Pericardial Effusion. Blessing Cooper (Electronically Signed) Final Date: 09 April 2025 19:20
[2025-04-10] VITALS (14 sets, daily range): BP systolic 123–216; BP diastolic 54–87; PULSE 53–69; RESP 11–18; TEMP 36.1–36.3; O2SAT 92–94; BMI 41.1
[2025-04-10 06:09] LABS: Basophils # (Auto) 0.0 Thou/mm3 (0.0-0.2); Basophils % (Auto) 1 % (0-2.5); Eosinophils # (Auto) 0.2 Thou/mm3 (0.0-0.5); Eosinophils % (Auto) 3 % (0-10); Hematocrit 35.0 % (36.0-46.0); Hemoglobin 11.5 g/dL (12.0-16.0); Immature Granulocytes Auto 0.01 Thou/mm3 (0.00-0.00); Lymphocytes # (Auto) 1.4 Thou/mm3 (1.0-4.8); Lymphocytes % (Auto) 21 % (10-50); Mean Corpuscular HGB Conc 32.9 g/dl (31.0-37.0); Mean Corpuscular Hemoglobin 29.1 pg (25.0-35.0); Mean Corpuscular Volume 89 fL (80-100); Monocytes # (Auto) 0.5 Thou/mm3 (0.0-0.8); Monocytes % (Auto) 8 % (0-12); Neutrophils # (Auto) 4.3 Thou/mm3 (1.8-7.7); Neutrophils % (Auto) 67 % (37-80); Nucleated Red Blood Cell # 0.00 Thou/mm3 (0.00-0.00); Nucleated Red Blood Cell % 0 /100 WBC (0); Platelet Count 205 Thou/mm3 (140-440); RDW Standard Deviation 45.1 fL (36.4-46.3); Red Blood Count 3.95 Miln/mm3 (4.00-5.20); White Blood Count 6.4 Thou/mm3 (3.6-11.0)
[2025-04-10 06:35] LABS: Alanine Aminotransferase 11 U/L (10-49); Albumin, Serum 4.1 gm/dL (3.4-4.8); Albumin/Globulin Ratio 1.8 (1.2-2.2); Alkaline Phosphatase 64 U/L (46-116); Anion Gap 10 (7-16); Aspartate Amino Transferase 14 U/L (0-34); BUN/Creatinine Ratio 14 Ratio (12-20); Bilirubin,Total 0.4 mg/dL (0.3-1.2); Blood Urea Nitrogen 17 mg/dL (9-23); Calcium 9.1 mg/dL (8.3-10.6); Calcium (Corrected) 9.1 mg/dL (8.5-10.1); Carbon Dioxide 25.0 mMol/L (20.0-31.0); Chloride 109 mMol/L (98-107); Creatinine (Component) 1.2 mg/dL (0.6-1.3); Estimated Creatinine Clearance 49.8 mL/min (>60); Globulin 2.3 gm/dL (2.3-3.5); Glucose 106 mg/dL (74-106); Magnesium 2.1 mg/dL (1.6-2.6); Osmolality,Calculated 288 (275-295); Phosphorous 3.8 mg/dL (2.4-5.1); Potassium 4.6 mMol/L (3.4-5.1); Sodium 144 mMol/L (136-145); Total Protein 6.4 gm/dL (5.7-8.2); eGFR 47 See Note
[2025-04-10] MEDS: cefTRIAXone/D5w 1gm IV premix 1 GM/50 ML BAG IV (09:00)
[2025-04-10] MEDS: APIXABAN 2.5 MG TABLET 5 MG PO ×2 (09:00→20:08)
[2025-04-10] MEDS: PANTOPRAZOLE 40 MG TABLET PO (09:00)
[2025-04-10] MEDS: NASACORT NASAL (09:02)
[2025-04-10] MEDS: DOXYCYCLINE 100 MG TABLET PO ×2 (09:02→20:08)
[2025-04-10] MEDS: LOTEPREDNOL 0.5% BOTH EYES ×2 (09:03→20:08)
[2025-04-10] MEDS: LOSARTAN POTASSIUM 25 MG TABLET PO (10:55)
--- NOTE | 2025-04-10 14:57 | PC.SS ---
Rounding Note: Patient's HR dropped, cardiology is consulting.
--- NOTE | 2025-04-10 15:03 | ESCONSULT_ITS ---
<Statement entered by Henny Wright MD - 04/14/25 18:08> I personally examined evaluate the patient patient is well-known to me several years ago history of paroxysmal A-fib multiple ablation procedures unsuccessful has episodes of A-fib despite Multaq came to the hospital A-fib RVR now back in sinus rhythm mild tach possibly as if ineffective after several years not unusual recommend changing to flecainide patient also complained of chest tightness heaviness she continues with the symptoms may consider angiogram because of crescendo angina at rest. Discussed about repeat ablation procedure less likely to be successful but first would like to give change in antiarrhythmic drug therapy with flecainide. Evaluate the patient and reviewed the consultation report in detail as documented by Dr. De La Cruz agree with the treatment plan and recommendation as documented with PGY 2 resident physician will continue to monitor the patient again tomorrow. HPI Data of Consult Requesting Physician: Alanna Valerio DO Admitting Provider: Miquel Figueroa MD Attending Provider: Alanna Valerio DO Primary Care Provider: Rohan Moran MD Consult Narrative History of present illness: Ms. Eli 75-year-old female with past medical history of chronic atrial fibrillation, hypertension, history of DVT (right lower extremity) presenting to the ED complaining of palpitations. Patient says she has a long history of A- fib and recently started on Eliquis when she developed DVT and July 2024 in her right lower extremity. Patient states for a long time she has been having trouble rate controlling her A-fib and when her A-fib is rate controlled then she becomes bradycardic. Patient noticed in December of this year sometimes her heart rate would be in the 200s. Patient has been following compliance testing analyst Dr. Lindo in [place] for some time now and prior to that was following with Dr. Wright for a long time. Patient has gotten 3 ablations so far which has not completely helped and scheduled to get her fourth ablation with Dr. Mcfadden coming up in the next couple weeks. Patient states that although she has not been feeling dizziness but she has gotten lightheadedness during these episodes when she has palpitations. And has been struggling recently with the bradycardia. Patient denies any PND or orthopnea. Patient has noticed exertional dyspnea recently and feels very fatigued and short of breath walking very short distance. Denies any chest pain or pressure. Patient denies any recent illness cough or sick contacts. In the ED patient was started on the diltiazem drip which converted her into sinus rhythm however diltiazem drip was turned off earlier this morning due to bradycardia. Cardiology is consulted for further recommendations on rate control agents and antihypertensives in the setting of bradycardia. PMH: chronic atrial fibrillation, hypertension, history of DVT PSH: Hysterectomy 1992, tonsillectomy 1969, back surgery 2012, coronary angiogram 2013 Social history: Patient lives at home, denies any alcohol, tobacco or illicit drug use. Allergies: Chlorhexidine and erythromycin causes hives, levofloxacin causes redness of skin, penicillin swelling, sulfa hives/swelling Medications: metoprolol succinate 50 mg, hydralazine 100 mg 3 times daily, Eliquis 5 mg p.o. twice daily cc:: cc: Alanna Valerio DO Review of Systems Review of Systems Systems Reviewed: All systems reviewed, normal except as documented Exam Vital Signs Temp Pulse Resp BP Pulse Ox O2 Del Method O2 Flow Rate 97.0 F 56 L 11 L 154/54 H 92 L Room Air 1 04/10/25 12:00 04/10/25 12:00 04/10/25 12:00 04/10/25 12:04/10/25 12:00 04/10/25 12:00 04/09/25 16:00 Narrative Exam GENERAL: A&Ox3 , Obese female, well groomed and cooperative, Awake, Not in acute distress NEURO: no focal neurological deficits HEENT: Atraumatic, Normocephalic. mucous membranes moist. Eyes open, symmetrical, & clear HEART: Normal Heart Sounds LUNGS: Clear to auscultation with no wheezing or crackles. ABDOMEN: soft, non-distended, non-tender, bowel sounds heard, no guarding or rebound tenderness SKIN: No Rash or ecchymoses EXTREMITIES: No edema, tenderness, able to move all 4 extremities, pedal pulses palpated Results Labs 04/11/25 05:55 04/11/25 05:55 Labs: Short CBC 04/10/25 Range/Units 05:25 WBC 6.4 (3.6-11.0) Thou/mm3 Hgb 11.5 L (12.0-16.0) g/dL Hct 35.0 L (36.0-46.0) % Plt Count 205 (140-440) Thou/mm3 BMP 04/10/25 05:25 Sodium 144 Potassium 4.6 Chloride 109 H Carbon Dioxide 25.0 BUN 17 Creatinine 1.2 Glucose 106 Calcium 9.1 Liver Function 04/10/25 Range/Units 05:25 Total Bilirubin 0.4 (0.3-1.2) mg/dL AST 14 (0-34) U/L ALT 11 (10-49) U/L Alkaline Phosphatase 64 (46-116) U/L Albumin 4.1 (3.4-4.8) gm/dL Quality Measures Quality Measures none Advance care planning discussed with:: patient Medications Home Medications and Allergies Home Medications ?Medication ?Instructions ?Recorded ?Confirmed ?Type dexlansoprazole 60 mg 60 mg PO QDAY 02/29/2004/09 History capsule,biphase delayed release (Dexilant) amlodipine 5 mg-olmesartan 40 mg 1 tab PO QDAY 1 04/09/25 History tablet (Arthur) hydralazine 100 mg tablet 100 mg PO Q8H 05/12/2104/09 History apixaban 5 mg tablet (Eliquis) 5 mg PO BID 12/21/24 History dronedarone 400 mg tablet (Multaq) 400 mg PO BID 04/0904/09/25 History loteprednol etabonate 0.5 % eye 1 drp Both eyes BID 04/09/25 History drops,suspension Allergies Allergy/AdvReac Type Severity Reaction Status Date / Time cephalexin (From Keflex) Allergy Severe Blurry Verified 04/08/25 19:01 Vision chlorhexidine Allergy Severe HIVES Verified 04/08/25 19:01 erythromycin base Allergy Severe HIVES Verified 04/08/25 19:01 levofloxacin (From Levaquin) Allergy Severe Redness of Verified 04/08/25 19:01 Skin Penicillins Allergy Severe SWELLING Verified 04/08/25 19:01 Sulfa (Sulfonamide Allergy Severe HIVES, Verified 04/08/25 19:01 Antibiotics) SWELLING Visit Medications Acetaminophen (Acetaminophen 325 Mg Tablet) 650 mg PO Q6H PRN PRN Reason: Pain 1-3 and/or Fever >100.1 Stop: 05/08/25 23:32 Amlodipine Besylate (Amlodipine Besylate 5 Mg Tablet) 5 mg PO QDAY [facility] Stop: 05/09/25 08:59 Last Admin: 04/10/25 09:01 Dose: 5 mg Apixaban (Apixaban 2.5 Mg Tablet) 5 mg PO BID KIRBY Stop: 05/09/25 08:59 Last Admin: 04/10/25 09:00 Dose: 5 mg Artificial Tears (Artificial Tears 225 Drop/15 Ml Btl) 0 drop BOTH EYES PRN PRN PRN Reason: TO KEEP EYES MOIST Stop: 05/08/25 23:45 Nasacort ( Triamcinolone Acetonide Nasal [place] 55 Mcg) 0 ea NASAL DAILY [facility] Stop: 05/09/25 11:14 Last Admin: 04/10/25 09:02 Dose: 2 spray Loteprednol 0.5% Ophthalmic Suspension 0 ea BOTH EYES BID [facility] Stop: 05/09/25 20:59 Last Admin: 04/10/25 09:03 Dose: 1 drops Dronedarone [Multaq] (400 Mg Tablet) 0 ea PO BID KIRBY Stop: 05/09/25 20:59 Last Admin: 04/10/25 09:03 Dose: 1 tablet Doxycycline Hyclate (Doxycycline 100 Mg Tablet) 100 mg PO BID [facility] Stop: 04/16/25 08:59 Last Admin: 04/10/25 09:02 Dose: 100 mg Hydralazine HCl (Hydralazine Hcl 25 Mg Tablet) 100 mg PO Q8H KIRBY Stop: 05/09/25 08:29 Last Admin: 04/10/25 09:02 Dose: 100 mg Diltiazem HCl 125 mg/ Dextrose 125 mls @ 5 mls/hr IV .Q24H KIRBY Stop: 05/08/25 22:07 Last Infusion: 04/09/25 03:41 Dose: 0 mg/hr, 0 mls/hr Ceftriaxone Sodium/Dextrose (Rocephin/D5w 1gm Iv Premix) 1 gm in 50 mls @ 100 mls/hr IV QDAY [facility] Stop: 04/15/25 23:38 Last Admin: 04/10/25 09:00 Dose: 100 mls/hr Losartan Potassium (Losartan Potassium 25 Mg Tablet) 25 mg PO QDAY [facility] Stop: 05/10/25 10:44 Last Admin: 04/10/25 10:55 Dose: 25 mg Ondansetron HCl (Ondansetron Inj 2 Mg/Ml Inj 2 Ml) 4 mg IVP Q6H PRN; Protocol PRN Reason: NAUSEA OR VOMITING Stop: 05/08/25 23:32 Pantoprazole Sodium (Pantoprazole 40 Mg Tablet) 40 mg PO QDAY KIRBY; Protocol Stop: 05/10/25 08:59 Last Admin: 04/10/25 09:00 Dose: 40 mg Sennosides (Senna Tablet) 1 tab PO QDAY PRN; Protocol PRN Reason: constipation Stop: 05/08/25 23:32 Discontinued Medications Apixaban (Apixaban 2.5 Mg Tablet) 5 mg PO X1 ONE Stop: 04/08/25 23:34 Last Admin: 04/09/25 00:50 Dose: 5 mg Diltiazem HCl (Diltiazem Inj 5 Mg/Ml Vial 5 Ml) 20 mg IV X1 ONE Stop: 04/08/25 19:42 Last Admin: 04/08/25 21:02 Dose: 20 mg Fluticasone Propionate (Fluticasone [place] 0.05% 16 Gm Btl) 1 spray NASAL QDAY [facility] Stop: 05/09/25 08:59 Last Admin: 04/09/25 11:11 Dose: Not Given Diltiazem HCl 125 mg/ Dextrose 125 mls @ 5 mls/hr IV .Q24H [facility] Stop: 05/08/25 19:40 Last Admin: 04/08/25 21:25 Dose: Not Given Magnesium Sulfate (Magnesium Sulfate Ivpb) 4 gm in 50 mls @ 12.5 mls/hr IV X1 ONE Stop: 04/09/25 03:35 Last Admin: 04/09/25 03:47 Dose: 12.5 mls/hr Metoprolol Succinate (Metoprolol Succinate Xl 25 Mg Tabcr) 50 mg PO HS [facility] Stop: 05/09/25 20:59 Last Admin: 04/09/25 21:33 Dose: 50 mg Metoprolol Tartrate (Metoprolol Tartrate 25 Mg Tablet) 25 mg PO X1 ONE Stop: 04/08/25 22:06 Last Admin: 04/08/25 23:02 Dose: Not Given Pantoprazole Sodium (Pantoprazole 40 Mg Tablet) 40 mg PO X1 ONE Stop: 04/09/25 22:22 Last Admin: 04/09/25 23:15 Dose: 40 mg Potassium Chloride (Potassium Chloride 20 Meq Tabcr) 40 meq PO X1 ONE Stop: 04/08/25 23:37 Last Admin: 04/09/25 00:49 Dose: 40 meq Assessment & Plan Plan Ms. Eli 75-year-old female with past medical history of chronic atrial fibrillation, hypertension, history of DVT (right lower extremity) presenting to the ED complaining of palpitations. Patient is found to be A-fib with RVR on admission and was started on diltiazem drip. #A-Fib with RVR #Chronic A-Fib #Sinus Bradycardia #Primary hypertension -Presented with chronic A-fib with rates in the 120's -Most likely cause is is elevated BP -Pt is on rate control agents at home (metoprolol XL) and has undergone 3 ablations. Pt is scheduled to get her fourth ablation with Dr. Mcfadden coming up in the next couple weeks -Currently hemodynamically stable and is sinus rhythm however Pt becomes bradycardic with rate controlled agents. [id number] score 4 , HAS-BLED 3 EKG: on admission (04/08) shows afib with RVR, rate of 125 EKG on 04/09 shows sinus bradycardia with rate of 57 Troponins <0.020 and BNP 127 Plan: -In the Ed pt was started of diltiazam ggt and pt converted to sinus rhythm and was turned off soon after. -TSH and FT4 are with in normal limits -Due to tachy-daniel in the setting of a-fib, pt may benefit from a pacemaker, as previously noted despite 3 ablations pt continues to go into A-fib RVR and then bradycardic -Will continue to monitor with flecainide as antiarrhythmics -Continue eliquis 5mg BID for anticoagulation -Continue amlodipine, losartan and hydralazine for BP control #Possible Community-acquired pneumonia #Normnocytic anemia management as per primary team Thank you for the consult and allowing us to participate in the care of the patient. Cardiology will continue to follow. Assessment and plan discussed with my attending physician Dr. Kyle De La Cruz (PGY-2)- Internal medicine resident
--- NOTE | 2025-04-10 16:53 | ESPR_ITS ---
<Statement entered by Davonte Landon MD - 04/10/25 20:37> Patient was seen and examined at the bedside. Patient went bradycardic and was feeling dizzy. Orthostatic vitals were significant for systolic blood pressure. Cardiology was consulted and plan is for to place a pacemaker most likely due to concern for tachybradycardia syndrome. Awaiting cardiology further recommendations. I discussed and supervised with the [employer] certified internetwork expert physician who took care of this patient. I personally saw and examined the patient. I agree with most of the assessment and plan. Disclaimer: Despite multiple revisions, due to the dictation software being used, the document bellow may not be free of grammatical errors including phonetic/typographic errors. However, this does not deter from our commitment to providing health care in the patient's best interest in mind. Plan of care discussed with attending Physician Dr. Teodoro Landon MD PGY-3 Documentation for date of: 04/10/25 Subjective Subjective Interval history: Patient seen and examined at bedside this morning. She denies palpitations, chest pain, or shortness of breath. She does report some lightheadedness today, so orthostatic vitals have been ordered. She denies dizziness when sitting or lying down. She has no leg swelling now; previous mild edema has resolved. No other complaints. Exam Vital Signs Temp Pulse Resp BP Pulse Ox O2 Del Method O2 Flow Rate 97.0 F 56 L 16 141/54 H 94 L Room Air 1 04/10/25 16:00 04/10/25 16:00 04/10/25 16:00 04/10/25 16:00 04/10/25 16:00 04/10/25 16:00 04/09/25 16:00 Narrative Exam General: Awake, alert, NAD CV: Irregularly irregular rhythm, HR noted on telemetry, no murmurs, no JVD, no LE edema Pulm: Lungs clear to auscultation bilaterally, satting well on room air GI: Soft, NT/ND, +BS Neuro: AOx3, no focal deficits, normal gait Ext: No swelling, pulses intact, no calf tenderness Objective Labs 04/11/25 05:55 04/11/25 05:55 Labs: Laboratory Results - last 24 hr 04/10/25 05:25 WBC 6.4 RBC 3.95 L Hgb 11.5 L Hct 35.0 L MCV 89 MCH 29.1 MCHC 32.9 RDW Std Deviation 45.1 Plt Count 205 Neut % (Auto) 67 Lymph % (Auto) 21 [place] % (Auto) 8 Eos % (Auto) 3 Baso % (Auto) 1 Neut # (Auto) 4.3 Lymph # (Auto) 1.4 [place] # (Auto) 0.5 Eos # (Auto) 0.2 Baso # (Auto) 0.0 Immature Gran # (Auto) 0.01 H Absolute Nucleated RBC 0.00 Immature Gran % 0 Nucleated RBC % 0 Sodium 144 Potassium 4.6 Chloride 109 H Carbon Dioxide 25.0 Anion Gap 10 BUN 17 Creatinine 1.2 Estim Creat Clear Calc 49.8 L eGFR 47 L BUN/Creatinine Ratio 14 Glucose 106 Calculated Osmolality 288 Calcium 9.1 Corrected Calcium 9.1 Phosphorus 3.8 Magnesium 2.1 Total Bilirubin 0.4 AST 14 ALT 11 Alkaline Phosphatase 64 Total Protein 6.4 Albumin 4.1 Globulin 2.3 Albumin/Globulin Ratio 1.8 Quality Measures Quality Measures VTE prophylaxis (Eliquis 5 mg twice daily) Advance care planning discussed with:: patient Assessment & Plan Assessment Current Active Medications: Generic Name Dose Route Start Last Admin Trade Name Freq PRN Reason Stop Dose Admin Acetaminophen 650 mg 04/08/25 23:33 Acetaminophen 325 Mg Tablet PO 05/08/25 23:32 Q6H PRN Pain 1-3 and/or Fever >100.1 Amlodipine Besylate 5 mg 04/09/25 09:00 04/10/25 09:01 Amlodipine Besylate 5 Mg Tablet PO 05/09/25 08:59 5 mg QDAY KIRBY Administration Apixaban 5 mg 04/09/25 09:00 04/10/25 09:00 Apixaban 2.5 Mg Tablet PO 05/09/25 08:59 5 mg BID KIRBY Administration Artificial Tears 0 drop 04/08/25 23:46 Artificial Tears 225 Drop/15 Ml Btl BOTH EYES 05/08/25 23:45 PRN PRN TO KEEP EYES MOIST Nasacort ( 0 ea 04/09/25 11:15 04/10/25 09:02 Triamcinolone NASAL 05/09/25 11:14 2 spray Acetonide Nasal DAILY KIRBY Administration [place] 55 Mcg) Loteprednol 0.5% 0 ea 04/09/25 21:00 04/10/25 09:03 Ophthalmic BOTH EYES 05/09/25 20:59 1 drops Suspension BID KIRBY Administration Dronedarone [Multaq] 0 ea 04/09/25 21:00 04/10/25 09:03 400 Mg Tablet PO 05/09/25 20:59 1 tablet BID KIRBY Administration Doxycycline Hyclate 100 mg 04/09/25 09:00 04/10/25 09:02 Doxycycline 100 Mg Tablet PO 04/16/25 08:59 100 mg BID KIRBY Administration Hydralazine HCl 100 mg 04/09/25 08:30 04/10/25 09:02 Hydralazine Hcl 25 Mg Tablet PO 05/09/25 08:29 100 mg Q8H KIRBY Administration Diltiazem HCl 125 mg/ Dextrose 125 mls @ 5 mls/hr 04/08/25 22:08 04/09/25 03:41 IV 05/08/25 22:07 0 mg/hr .Q24H KIRBY 0 mls/hr Infusion 5 MG/HR Ceftriaxone Sodium/Dextrose 1 gm in 50 mls @ 100 mls/hr 04/08/25 23:39 04/10/25 09:00 Rocephin/D5w 1gm Iv Premix IV 04/15/25 23:38 100 mls/hr QDAY KIRBY Administration Losartan Potassium 25 mg 04/10/25 10:45 04/10/25 10:55 Losartan Potassium 25 Mg Tablet PO 05/10/25 10:44 25 mg QDAY KIRBY Administration Ondansetron HCl 4 mg 04/08/25 23:33 Ondansetron Inj 2 Mg/Ml Inj 2 Ml IVP 05/08/25 23:32 Q6H PRN NAUSEA OR VOMITING Protocol Pantoprazole Sodium 40 mg 04/10/25 09:00 04/10/25 09:00 Pantoprazole 40 Mg Tablet PO 05/10/25 08:59 40 mg QDAY KIRBY Administration Protocol Sennosides 1 tab 04/08/25 23:33 Senna Tablet PO 05/08/25 23:32 QDAY PRN constipation Protocol Plan 75F with chronic A-fib s/p A-fib with RVR, early CAP, now stable off O2 but developed sinus bradycardia with lightheadedness after rate control restarted. Echo normal EF 65%. # Acute on chronic A-fib with RVR #Concern for tachybradycardia syndrome * Converted to sinus bradycardia after diltiazem and restarting metoprolol last night; HR dropped to 39 on telemetry overnight so metoprolol held again this morning. * Patient reports lightheadedness. Orthostatic vitals: lying 140/74, sitting 185/77, standing 183/75 --> no significant drop but HR still low. * CHADS-VASc = 4 --> high stroke risk * HAS-BLED = 3 -->moderate bleeding risk. Plan: * Plan for possible pacemaker placement per cardiology awaiting further recs * Flecainide 100 mg twice daily per cardiology recs * Hold metoprolol for now * Continue to hold any IV rate control * Continue Eliquis 5 mg PO BID * Telemetry monitoring * Replete electrolytes * keep Mg >2, K >4 * Echo EF 65% reassuring # Acute respiratory distress likely due to # Possible community-acquired pneumonia * Mild early pneumonia by CXR with mild initial hypoxia, now off O2, improved symptoms. Plan: * Continue IV ceftriaxone 1g daily + PO doxycycline 100 mg BID * Encourage ambulation * Monitor O2 status, repeat CXR if worsening # Uncontrolled hypertension * BP fluctuating, likely related to rate control adjustments and bradycardia. Plan: * Started Losartan 25mg * Continue home amlodipine * Continue hydralazine as needed * Monitor BP trends # Lower extremity edema (resolved) * Mild edema resolved, no pain. Plan: * Continue to monitor # Normocytic anemia * Stable, Hgb 10.7. Plan: * Outpatient follow-up Health Maintenance: * Disposition: Continue inpatient monitoring * Feeding: Cardiac diet * Thromboprophylaxis: Eliquis covers DVT prophylaxis * GI prophylaxis: Not indicated * Code status: Full ----- Plan discussed with attending physician Dr. Valerio and senior resident Dr. Barbi Ortega MD PGY-1 Internal Medicine Attending Provider Attestation/Addendum I, Alanna Valerio, DO, attest that I was physically present for the pearl portions of the service and evaluated the patient with the resident and I reviewed and discussed the case with the resident and agree with the resident's findings and plans of care as documented above Pt seen and evaluated this AM. Patient had an episode of bradycardia in the 30s overnight noted on tele monitor. She continues to complain about some occasional dizziness, but denies any shortness of breath or chest pain. No episodes of RVR. Will hold beta fanny and consult cardiology for further evaluation as patient may have sick sinus resulting in her fluctuations in HR versus 2/2 antiarrhytmics. BP is uncontrolled will add ARB and uptitrate antihypertensives as needed.
[2025-04-10] MEDS: FLECAINIDE ACET 50 MG TABLET 100 MG PO (20:08)
[2025-04-11] VITALS (12 sets, daily range): BP systolic 121–159; BP diastolic 70–88; PULSE 50–97; RESP 12–22; TEMP 36.1–36.6; O2SAT 91–97; BMI 41.1
[2025-04-11 06:35] LABS: Basophils # (Auto) 0.0 Thou/mm3 (0.0-0.2); Basophils % (Auto) 1 % (0-2.5); Eosinophils # (Auto) 0.2 Thou/mm3 (0.0-0.5); Eosinophils % (Auto) 2 % (0-10); Hematocrit 35.0 % (36.0-46.0); Hemoglobin 11.8 g/dL (12.0-16.0); Immature Granulocytes Auto 0.01 Thou/mm3 (0.00-0.00); Lymphocytes # (Auto) 1.5 Thou/mm3 (1.0-4.8); Lymphocytes % (Auto) 21 % (10-50); Mean Corpuscular HGB Conc 33.7 g/dl (31.0-37.0); Mean Corpuscular Hemoglobin 29.1 pg (25.0-35.0); Mean Corpuscular Volume 86 fL (80-100); Monocytes # (Auto) 0.6 Thou/mm3 (0.0-0.8); Monocytes % (Auto) 8 % (0-12); Neutrophils # (Auto) 4.5 Thou/mm3 (1.8-7.7); Neutrophils % (Auto) 67 % (37-80); Nucleated Red Blood Cell # 0.00 Thou/mm3 (0.00-0.00); Nucleated Red Blood Cell % 0 /100 WBC (0); Platelet Count 208 Thou/mm3 (140-440); RDW Standard Deviation 43.5 fL (36.4-46.3); Red Blood Count 4.06 Miln/mm3 (4.00-5.20); White Blood Count 6.8 Thou/mm3 (3.6-11.0)
[2025-04-11 07:11] LABS: Alanine Aminotransferase 11 U/L (10-49); Albumin, Serum 4.3 gm/dL (3.4-4.8); Albumin/Globulin Ratio 1.9 (1.2-2.2); Alkaline Phosphatase 65 U/L (46-116); Anion Gap 10 (7-16); Aspartate Amino Transferase 13 U/L (0-34); BUN/Creatinine Ratio 16 Ratio (12-20); Bilirubin,Total 0.4 mg/dL (0.3-1.2); Blood Urea Nitrogen 19 mg/dL (9-23); Calcium 9.3 mg/dL (8.3-10.6); Calcium (Corrected) 9.3 mg/dL (8.5-10.1); Carbon Dioxide 25.8 mMol/L (20.0-31.0); Chloride 107 mMol/L (98-107); Creatinine (Component) 1.2 mg/dL (0.6-1.3); Estimated Creatinine Clearance 49.8 mL/min (>60); Globulin 2.3 gm/dL (2.3-3.5); Glucose 101 mg/dL (74-106); Magnesium 1.6 mg/dL (1.6-2.6); Osmolality,Calculated 287 (275-295); Phosphorous 4.2 mg/dL (2.4-5.1); Potassium 4.6 mMol/L (3.4-5.1); Sodium 143 mMol/L (136-145); Total Protein 6.6 gm/dL (5.7-8.2); eGFR 47 See Note
[2025-04-11] MEDS: PANTOPRAZOLE 40 MG TABLET PO (09:29)
[2025-04-11] MEDS: LOSARTAN POTASSIUM 25 MG TABLET PO (09:30)
[2025-04-11] MEDS: FLECAINIDE ACET 50 MG TABLET 100 MG PO ×2 (09:32→20:59)
[2025-04-11] MEDS: DOXYCYCLINE 100 MG TABLET PO ×2 (09:32→20:59)
[2025-04-11] MEDS: LOTEPREDNOL 0.5% BOTH EYES ×2 (09:33→20:59)
[2025-04-11] MEDS: cefTRIAXone/D5w 1gm IV premix 1 GM/50 ML BAG IV (09:34)
[2025-04-11] MEDS: APIXABAN 2.5 MG TABLET 5 MG PO (09:38)
[2025-04-11] MEDS: Magnesium Sulfate 4 GM Ivpb 4 GM/50 ML BAG IV (11:06)
--- NOTE | 2025-04-11 14:49 | ESPR_ITS ---
<Statement entered by Davonte Landon MD - 04/11/25 15:29> Patient was seen and examined at the bedside. Patient was c/o chest pressure and feeling of food stucking in her thoat although she didnt eat alot. Heart rate was around 60-70 Bpm and only went bradycardiac 50's once or twice per tele monitor. Professor Of Floriculture suggested that they would like to do cardiac catherization to evaluate her coronary arteries. Therefore, we held eliquis and will keep her NPO after midnight. I discussed and supervised with the learning and development intern physician who took care of this patient. I personally saw and examined the patient. I agree with most of the assessment and plan. Disclaimer: Despite multiple revisions, due to the dictation software being used, the document bellow may not be free of grammatical errors including phonetic/typographic errors. However, this does not deter from our commitment to providing health care in the patient's best interest in mind. Plan of care discussed with attending Physician Dr. Teodoro Landon MD PGY-3 Documentation for date of: 04/11/25 Subjective Subjective Interval history: Patient seen and examined this morning. She reports that she had an episode of chest pressure overnight but denies any chest pain currently. No palpitations, no dizziness, no shortness of breath at this time. Telemetry shows no significant bradycardia overnight. Exam Vital Signs Temp Pulse Resp BP Pulse Ox O2 Del Method O2 Flow Rate 97.8 F 56 L 12 159/76 H 91 L Room Air 1 04/11/25 12:00 04/11/25 12:00 04/11/25 12:00 04/11/25 12:00 04/11/25 12:00 04/11/25 12:00 04/11/25 04:00 Narrative Exam General: Awake, alert, NAD CV: Irregularly irregular rhythm, no murmurs, no JVD, HR stable on telemetry Pulm: Lungs clear to auscultation bilaterally, satting well on room air GI: Soft, NT/ND, +BS Neuro: AOx3, no focal deficits, normal speech Ext: No lower extremity edema, pulses intact bilaterally Objective Labs 04/11/25 05:55 04/11/25 05:55 Labs: Laboratory Results - last 24 hr 04/11/25 05:55 WBC 6.8 RBC 4.06 Hgb 11.8 L Hct 35.0 L MCV 86 MCH 29.1 MCHC 33.7 RDW Std Deviation 43.5 Plt Count 208 Neut % (Auto) 67 Lymph % (Auto) 21 [place] % (Auto) 8 Eos % (Auto) 2 Baso % (Auto) 1 Neut # (Auto) 4.5 Lymph # (Auto) 1.5 [place] # (Auto) 0.6 Eos # (Auto) 0.2 Baso # (Auto) 0.0 Immature Gran # (Auto) 0.01 H Absolute Nucleated RBC 0.00 Immature Gran % 0 Nucleated RBC % 0 Sodium 143 Potassium 4.6 Chloride 107 Carbon Dioxide 25.8 Anion Gap 10 BUN 19 Creatinine 1.2 Estim Creat Clear Calc 49.8 L eGFR 47 L BUN/Creatinine Ratio 16 Glucose 101 Calculated Osmolality 287 Calcium 9.3 Corrected Calcium 9.3 Phosphorus 4.2 Magnesium 1.6 Total Bilirubin 0.4 AST 13 ALT 11 Alkaline Phosphatase 65 Total Protein 6.6 Albumin 4.3 Globulin 2.3 Albumin/Globulin Ratio 1.9 Quality Measures Quality Measures VTE prophylaxis (Eliquis 5 mg twice daily) Advance care planning discussed with:: patient Assessment & Plan Assessment Current Active Medications: Generic Name Dose Route Start Last Admin Trade Name Freq PRN Reason Stop Dose Admin Acetaminophen 650 mg 04/08/25 23:33 Acetaminophen 325 Mg Tablet PO 05/08/25 23:32 Q6H PRN Pain 1-3 and/or Fever >100.1 Amlodipine Besylate 5 mg 04/09/25 09:00 04/11/25 09:31 Amlodipine Besylate 5 Mg Tablet PO 05/09/25 08:59 5 mg QDAY KIRBY Administration Artificial Tears 0 drop 04/08/25 23:46 Artificial Tears 225 Drop/15 Ml Btl BOTH EYES 05/08/25 23:45 PRN PRN TO KEEP EYES MOIST Nasacort ( 0 ea 04/09/25 11:15 04/11/25 09:42 Triamcinolone NASAL 05/09/25 11:14 Not Given Acetonide Nasal DAILY KIRBY [place] 55 Mcg) Loteprednol 0.5% 0 ea 04/09/25 21:00 04/11/25 09:33 Ophthalmic BOTH EYES 05/09/25 20:59 1 drops Suspension BID KIRBY Administration Doxycycline Hyclate 100 mg 04/09/25 09:00 04/11/25 09:32 Doxycycline 100 Mg Tablet PO 04/16/25 08:59 100 mg BID KIRBY Administration Flecainide Acetate 100 mg 04/10/25 21:00 04/11/25 09:32 Flecainide Acet 50 Mg Tablet PO 05/10/25 20:59 100 mg BID KIRBY Administration Hydralazine HCl 100 mg 04/09/25 08:30 04/11/25 09:31 Hydralazine Hcl 25 Mg Tablet PO 05/09/25 08:29 100 mg Q8H KIRBY Administration Diltiazem HCl 125 mg/ Dextrose 125 mls @ 5 mls/hr 04/08/25 22:08 04/09/25 03:41 IV 05/08/25 22:07 0 mg/hr .Q24H KIRBY 0 mls/hr Infusion 5 MG/HR Ceftriaxone Sodium/Dextrose 1 gm in 50 mls @ 100 mls/hr 04/08/25 23:39 04/11/25 09:34 Rocephin/D5w 1gm Iv Premix IV 04/15/25 23:38 100 mls/hr QDAY KIRBY Administration Losartan Potassium 25 mg 04/10/25 10:45 04/11/25 09:30 Losartan Potassium 25 Mg Tablet PO 05/10/25 10:44 25 mg QDAY KIRBY Administration Pantoprazole Sodium 40 mg 04/10/25 09:00 04/11/25 09:29 Pantoprazole 40 Mg Tablet PO 05/10/25 08:59 40 mg QDAY KIRBY Administration Protocol Sennosides 1 tab 04/08/25 23:33 Senna Tablet PO 05/08/25 23:32 QDAY PRN constipation Protocol Plan ?75F with chronic A-fib, s/p A-fib with RVR, now in sinus rhythm with intermittent bradycardia, overnight chest pressure, hypertension, mild normocytic anemia, early CAP - stable. Cardiology consulted, plan for cardiac cath. # A-Fib with RVR / Chronic A-Fib Admitted for A-fib with RVR --> converted to sinus rhythm, intermittent bradycardia. Overnight chest pressure - cath planned per Cardiology Dr. Wright. CHADS?VASc = 4, HAS-BLED = 3. Plan: * Hold Eliquis per Cardiology for cath * NPO after midnight for cardiac cath tomorrow * Continue to hold metoprolol XL per Cardiology * Continue telemetry * Replete electrolytes PRN, keep Mg >2, K >4 * Continue flecainide # Sinus Bradycardia HR stable overnight, no significant bradycardia on telemetry. Plan: * Monitor HR and BP * Pacemaker to be re-evaluated pending cath outcome # Primary Hypertension BP mildy elevated on current meds. Plan: * Continue amlodipine, losartan, hydralazine * Monitor BP trends # Possible Community-acquired pneumonia Clinically improved, off O2, lungs clear. Plan: * Continue IV ceftriaxone + PO doxycycline * Encourage ambulation * Monitor for worsening # Normocytic anemia Stable Hgb. Plan: * Outpatient follow-up Health Maintenance: * Disposition: Continue inpatient monitoring, plan for cardiac cath tomorrow * Feeding: Cardiac diet until NPO after midnight * Thromboprophylaxis: Holding Eliquis for cath * GI prophylaxis: Not indicated * Code status: Full ----- Plan discussed with attending physician Dr. Valerio and senior resident Dr. Barbi Ortega MD PGY-1 Internal Medicine Attending Provider Attestation/Addendum I, Alanna Valeiro, , attest that I was physically present for the pearl portions of the service and evaluated the patient with the resident and I reviewed and discussed the case with the resident and agree with the resident's findings and plans of care as documented above Patient seen eval this a.m. No acute events overnight. Patient states that she felt some heaviness in her chest this morning, but unclear if it is associated with her musculoskeletal pain in her right scapular region on her back. Will hold Eliquis at this time as cardiology has plans to do cardiac catheterization tomorrow morning. Will place patient n.p.o. after midnight. Patient has been doing well on flecainide 100 mg p.o. twice daily otherwise. She denies any shortness of breath or dizziness at this time.
--- NOTE | 2025-04-11 14:59 | PC.SS ---
Rounding Note: Plan is for cardiac cath placement tomorrow. Possible d/c home tomorrow following procedure.
--- NOTE | 2025-04-11 19:47 | ESPR_ITS ---
<Statement entered by Henny Wright MD - 04/14/25 18:09> The patient is evaluated again along with resident physician Dr. De La Cruz patient continues to have some chest tightness concerned about CAD though she had negative stress test in the past her chest pain is quite classical in the substernal region patient at rest since coronary angiogram is recommended to make sure were not dealing with CAD especially considering that we are giving flecainide. Eval the patient with resident physician PGY [address] Dr[address] De La Cruz agree with the treatment plan recommendation as documented will schedule for coronary angiogram tomorrow morning. Risks benefits alternatives explained perform the procedure via right radial approach Eliquis will be held for the procedure tonight's dose. Documentation for date of: 04/11/25 Subjective Subjective Interval history: Pt is seen at bedside, currently saturating on on 2L oxygen via nasal cannula. BP is 159/76, HR is in the 50's. Telemetry is reviewed and pt is in sinus rhythm with HR in the 60's - 70's. Pt complains ofmid sternal pressure like chest pain, states it is not sharp pain. the pain is persistent, pt states last night she was unabel to sleep due to discomfort. although she denies shortness of breath, last night when pt layed flat she became hypoxic with saturation in the 80's and was placed on supplemental oxygen. vitals are stable and labs are unremarkable. Pt is scheudled for coronary angiogram tomorrow in the afternoon to rule out CAD. Exam Vital Signs Temp Pulse Resp BP Pulse Ox O2 Del Method O2 Flow Rate 97.8 F 58 L 12 155/75 H 97 Room Air 1 04/11/25 16:00 04/11/25 18:18 04/11/25 16:00 04/11/25 18:18 04/11/25 16:00 04/11/25 16:04/11/25 04:00 Narrative Exam GENERAL: A&Ox3 , Obese female, well groomed and cooperative, saturating on 2L O2 via NC, Awake, Not in acute distress NEURO: no focal neurological deficits HEENT: Atraumatic, Normocephalic. mucous membranes moist. Eyes open, symmetrical, & clear HEART: Normal Heart Sounds LUNGS: Clear to auscultation with no wheezing or crackles. ABDOMEN: soft, non-distended, non-tender, bowel sounds heard, no guarding or rebound tenderness SKIN: No Rash or ecchymoses EXTREMITIES: No edema, tenderness, able to move all 4 extremities, pedal pulses palpated Objective Labs 04/11/25 05:55 04/11/25 05:55 Labs: Laboratory Results - last 24 hr 04/11/25 05:55 WBC 6.8 RBC 4.06 Hgb 11.8 L Hct 35.0 L MCV 86 MCH 29.1 MCHC 33.7 RDW Std Deviation 43.5 Plt Count 208 Neut % (Auto) 67 Lymph % (Auto) 21 [place] % (Auto) 8 Eos % (Auto) 2 Baso % (Auto) 1 Neut # (Auto) 4.5 Lymph # (Auto) 1.5 [place] # (Auto) 0.6 Eos # (Auto) 0.2 Baso # (Auto) 0.0 Immature Gran # (Auto) 0.01 H Absolute Nucleated RBC 0.00 Immature Gran % 0 Nucleated RBC % 0 Sodium 143 Potassium 4.6 Chloride 107 Carbon Dioxide 25.8 Anion Gap 10 BUN 19 Creatinine 1.2 Estim Creat Clear Calc 49.8 L eGFR 47 L BUN/Creatinine Ratio 16 Glucose 101 Calculated Osmolality 287 Calcium 9.3 Corrected Calcium 9.3 Phosphorus 4.2 Magnesium 1.6 Total Bilirubin 0.4 AST 13 ALT 11 Alkaline Phosphatase 65 Total Protein 6.6 Albumin 4.3 Globulin 2.3 Albumin/Globulin Ratio 1.9 Quality Measures Quality Measures VTE prophylaxis (Eliquis 5 mg twice daily) Advance care planning discussed with:: patient Assessment & Plan Assessment Current Active Medications: Generic Name Dose Route Start Last Admin Trade Name Freq PRN Reason Stop Dose Admin Acetaminophen 650 mg 04/08/25 23:33 Acetaminophen 325 Mg Tablet PO 05/08/25 23:32 Q6H PRN Pain 1-3 and/or Fever >100.1 Amlodipine Besylate 5 mg 04/09/25 09:00 04/11/25 09:31 Amlodipine Besylate 5 Mg Tablet PO 05/09/25 08:59 5 mg QDAY KIRBY Administration Artificial Tears 0 drop 04/08/25 23:46 Artificial Tears 225 Drop/15 Ml Btl BOTH EYES 05/08/25 23:45 PRN PRN TO KEEP EYES MOIST Nasacort ( 0 ea 04/09/25 11:15 04/11/25 09:42 Triamcinolone NASAL 05/09/25 11:14 Not Given Acetonide Nasal DAILY KIRBY [place] 55 Mcg) Loteprednol 0.5% 0 ea 04/09/25 21:00 04/11/25 09:33 Ophthalmic BOTH EYES 05/09/25 20:59 1 drops Suspension BID KIRBY Administration Doxycycline Hyclate 100 mg 04/09/25 09:00 04/11/25 09:32 Doxycycline 100 Mg Tablet PO 04/16/25 08:59 100 mg BID KIRBY Administration Flecainide Acetate 100 mg 04/10/25 21:00 04/11/25 09:32 Flecainide Acet 50 Mg Tablet PO 05/10/25 20:59 100 mg BID KIRBY Administration Hydralazine HCl 100 mg 04/09/25 08:30 04/11/25 18:18 Hydralazine Hcl 25 Mg Tablet PO 05/09/25 08:29 100 mg Q8H KIRBY Administration Diltiazem HCl 125 mg/ Dextrose 125 mls @ 5 mls/hr 04/08/25 22:08 04/09/25 03:41 IV 05/08/25 22:07 0 mg/hr .Q24H KIRBY 0 mls/hr Infusion 5 MG/HR Ceftriaxone Sodium/Dextrose 1 gm in 50 mls @ 100 mls/hr 04/08/25 23:39 04/11/25 09:34 Rocephin/D5w 1gm Iv Premix IV 04/15/25 23:38 100 mls/hr QDAY KIRBY Administration Losartan Potassium 25 mg 04/10/25 10:45 04/11/25 09:30 Losartan Potassium 25 Mg Tablet PO 05/10/25 10:44 25 mg QDAY KIRBY Administration Pantoprazole Sodium 40 mg 04/10/25 09:00 04/11/25 09:29 Pantoprazole 40 Mg Tablet PO 05/10/25 08:59 40 mg QDAY KIRBY Administration Protocol Sennosides 1 tab 04/08/25 23:33 Senna Tablet PO 05/08/25 23:32 QDAY PRN constipation Protocol Plan Ms. Eli 75-year-old female with past medical history of chronic atrial fibrillation, hypertension, history of DVT (right lower extremity) presenting to the ED complaining of palpitations. Patient is found to be A-fib with RVR on admission and was started on diltiazem drip. #A-Fib with RVR #Chronic A-Fib #Sinus Bradycardia #Primary hypertension -Presented with chronic A-fib with rates in the 120's -Most likely cause is is elevated BP -Pt is on rate control agents at home (metoprolol XL) and has undergone 3 ablations. Pt is scheduled to get her fourth ablation with Dr. Mcfadden coming up in the next couple weeks -Currently hemodynamically stable and is sinus rhythm however Pt becomes bradycardic with rate controlled agents. [id number] score 4 , HAS-BLED 3 EKG: on admission (04/08) shows afib with RVR, rate of 125 EKG on 04/09 shows sinus bradycardia with rate of 57 Troponins <0.020 and BNP 127 Plan: -In the Ed pt was started of diltiazam ggt and pt converted to sinus rhythm and was turned off soon after. -TSH and FT4 are with in normal limits -Due to tachy-daniel in the setting of a-fib, pt may benefit from a pacemaker, as previously noted despite 3 ablations pt continues to go into A-fib RVR and then bradycardic -Will continue to monitor with flecainide as antiarrhythmics -Continue eliquis 5mg BID for anticoagulation -Continue amlodipine, losartan and hydralazine for BP control -Scheduled for coronary angiogram to rule out CAD #Possible Community-acquired pneumonia #Normnocytic anemia management as per primary team Thank you for the consult and allowing us to participate in the care of the patient. Cardiology will continue to follow. Assessment and plan discussed with my attending physician Dr. Kyle De La Cruz (PGY-2)- Internal medicine resident
[2025-04-12] VITALS (19 sets, daily range): BP systolic 101–208; BP diastolic 34–176; PULSE 53–80; RESP 14–22; TEMP 36.1–36.5; O2SAT 92–98; BMI 41.1; BMI 41.2
[2025-04-12 06:27] LABS: Basophils # (Auto) 0.0 Thou/mm3 (0.0-0.2); Basophils % (Auto) 1 % (0-2.5); Eosinophils # (Auto) 0.2 Thou/mm3 (0.0-0.5); Eosinophils % (Auto) 2 % (0-10); Hematocrit 37.1 % (36.0-46.0); Hemoglobin 12.1 g/dL (12.0-16.0); Immature Granulocytes Auto 0.02 Thou/mm3 (0.00-0.00); Lymphocytes # (Auto) 1.4 Thou/mm3 (1.0-4.8); Lymphocytes % (Auto) 19 % (10-50); Mean Corpuscular HGB Conc 32.6 g/dl (31.0-37.0); Mean Corpuscular Hemoglobin 28.9 pg (25.0-35.0); Mean Corpuscular Volume 89 fL (80-100); Monocytes # (Auto) 0.6 Thou/mm3 (0.0-0.8); Monocytes % (Auto) 8 % (0-12); Neutrophils # (Auto) 5.1 Thou/mm3 (1.8-7.7); Neutrophils % (Auto) 70 % (37-80); Nucleated Red Blood Cell # 0.00 Thou/mm3 (0.00-0.00); Nucleated Red Blood Cell % 0 /100 WBC (0); Platelet Count 188 Thou/mm3 (140-440); RDW Standard Deviation 44.2 fL (36.4-46.3); Red Blood Count 4.18 Miln/mm3 (4.00-5.20); White Blood Count 7.3 Thou/mm3 (3.6-11.0)
[2025-04-12 06:59] LABS: Alanine Aminotransferase 10 U/L (10-49); Albumin, Serum 4.2 gm/dL (3.4-4.8); Albumin/Globulin Ratio 1.7 (1.2-2.2); Alkaline Phosphatase 68 U/L (46-116); Anion Gap 10 (7-16); Aspartate Amino Transferase 14 U/L (0-34); BUN/Creatinine Ratio 15 Ratio (12-20); Bilirubin,Total 0.3 mg/dL (0.3-1.2); Blood Urea Nitrogen 21 mg/dL (9-23); Calcium 9.3 mg/dL (8.3-10.6); Calcium (Corrected) 9.3 mg/dL (8.5-10.1); Carbon Dioxide 27.4 mMol/L (20.0-31.0); Chloride 105 mMol/L (98-107); Creatinine (Component) 1.4 mg/dL (0.6-1.3); Estimated Creatinine Clearance 42.7 mL/min (>60); Globulin 2.5 gm/dL (2.3-3.5); Glucose 107 mg/dL (74-106); Magnesium 2.0 mg/dL (1.6-2.6); Osmolality,Calculated 286 (275-295); Phosphorous 4.6 mg/dL (2.4-5.1); Potassium 5.1 mMol/L (3.4-5.1); Sodium 142 mMol/L (136-145); Total Protein 6.7 gm/dL (5.7-8.2); eGFR 39 See Note
[2025-04-12] MEDS: RINGERS LACTATED 1000 ML 500 ML 999 ML IV (08:44)
[2025-04-12] MEDS: cefTRIAXone/D5w 1gm IV premix 1 GM/50 ML BAG IV (08:45)
[2025-04-12] MEDS: LOSARTAN POTASSIUM 25 MG TABLET PO (10:46)
[2025-04-12] MEDS: ONDANSETRON INJ 2 MG/ML INJ 2 ML 4 MG IVP (13:42)
--- NOTE | 2025-04-12 14:25 | ESPR_ITS ---
<Statement entered by Davonte Landon MD - 04/12/25 14:54> Patient was seen and examined at the bedside. She was doing well and underwent cardiac angiogram which only revealed mild plaque in her coronary arteries. It is recommended by taxation economist to continue metoprolol XL 25 mg once a day, amlodipine 5 mg and losartan 25 mg once a day and flecainide 100 mg twice a day. she will kept for one more day for close observation for any hematoma or bleeding around her radial artery. Anticipating DC in next 24 hrs if patient remains stable. I discussed and supervised with the general internal medicine physician physician who took care of this patient. I personally saw and examined the patient. I agree with most of the assessment and plan. Disclaimer: Despite multiple revisions, due to the dictation software being used, the document bellow may not be free of grammatical errors including phonetic/typographic errors. However, this does not deter from our commitment to providing health care in the patient's best interest in mind. Plan of care discussed with attending Physician Dr. Nona Landon MD PGY-3 Documentation for date of: 04/12/25 Subjective Subjective Interval history: Patient was seen and examined this morning before going for cardiac cath - at that time she denied chest pain, palpitations, or shortness of breath, with only mild lightheadedness. She then went for her cath and has since returned to her room. nurse called me and reports she is back, stable, resting comfortably, and without new concerns. Per cath report: mild proximal RCA disease (30% lesion), markedly tortuous LAD and LCX, no significant obstructive CAD, normal EF. Cardiology thinks her prior chest tightness is likely due to acid reflux and recommends continuing pantoprazole. Plan for discharge tomorrow with updated meds per Cardiology. Exam Vital Signs Temp Pulse Resp BP Pulse Ox O2 Del Method O2 Flow Rate 97.7 F 65 16 157/67 H 94 L Nasal Cannula 2 04/12/25 13:00 04/12/25 14:15 04/12/25 14:15 04/12/25 14:15 04/12/25 14:15 04/12/25 14:15 04/12/25 14:15 Narrative Exam Physical Exam: General: Awake, alert, NAD CV: Irregularly irregular rhythm, HR stable on telemetry, no murmurs, no JVD Pulm: Lungs clear to auscultation bilaterally, satting well on low-flow nasal cannula GI: Soft, NT/ND, +BS Neuro: AOx3, no focal deficits Ext: No edema, pulses intact bilaterally Objective Labs 04/12/25 05:49 04/12/25 05:49 Labs: Laboratory Results - last 24 hr 04/12/25 05:49 WBC 7.3 RBC 4.18 Hgb 12.1 Hct 37.1 MCV 89 MCH 28.9 MCHC 32.6 RDW Std Deviation 44.2 Plt Count 188 Neut % (Auto) 70 Lymph % (Auto) 19 [place] % (Auto) 8 Eos % (Auto) 2 Baso % (Auto) 1 Neut # (Auto) 5.1 Lymph # (Auto) 1.4 [place] # (Auto) 0.6 Eos # (Auto) 0.2 Baso # (Auto) 0.0 Immature Gran # (Auto) 0.02 H Absolute Nucleated RBC 0.00 Immature Gran % 0 Nucleated RBC % 0 Sodium 142 Potassium 5.1 D Chloride 105 Carbon Dioxide 27.4 Anion Gap 10 BUN 21 Creatinine 1.4 H Estim Creat Clear Calc 42.7 L eGFR 39 L BUN/Creatinine Ratio 15 Glucose 107 H Calculated Osmolality 286 Calcium 9.3 Corrected Calcium 9.3 Phosphorus 4.6 Magnesium 2.0 Total Bilirubin 0.3 AST 14 ALT 10 Alkaline Phosphatase 68 Total Protein 6.7 Albumin 4.2 Globulin 2.5 Albumin/Globulin Ratio 1.7 Quality Measures Quality Measures VTE prophylaxis (Eliquis 5 mg twice daily) Advance care planning discussed with:: patient Assessment & Plan Assessment Current Active Medications: Generic Name Dose Route Start Last Admin Trade Name Genny PRN Reason Stop Dose Admin Acetaminophen 650 mg 04/08/25 23:33 Acetaminophen 325 Mg Tablet PO 05/08/25 23:32 Q6H PRN Pain 1-3 and/or Fever >100.1 Amlodipine Besylate 5 mg 04/09/25 09:00 04/12/25 10:38 Amlodipine Besylate 5 Mg Tablet PO 05/09/25 08:59 5 mg QDAY KIRBY Administration Apixaban 5 mg 04/13/25 09:00 Apixaban 2.5 Mg Tablet PO 05/13/25 08:59 BID KIRBY Artificial Tears 0 drop 04/08/25 23:46 Artificial Tears 225 Drop/15 Ml Btl BOTH EYES 08/06/25 23:45 PRN PRN TO KEEP EYES MOIST Nasacort ( 0 ea 04/09/25 11:15 04/12/25 13:14 Triamcinolone NASAL 05/09/25 11:14 Not Given Acetonide Nasal DAILY KIRBY [place] 55 Mcg) Loteprednol 0.5% 0 ea 04/09/25 21:00 04/11/25 20:59 Ophthalmic BOTH EYES 05/09/25 20:59 1 drops Suspension BID KIRBY Administration Doxycycline Hyclate 100 mg 04/09/25 09:00 04/12/25 13:14 Doxycycline 100 Mg Tablet PO 04/16/25 08:59 Not Given BID KIRBY Flecainide Acetate 100 mg 04/10/25 21:00 04/12/25 13:15 Flecainide Acet 50 Mg Tablet PO 05/10/25 20:59 Not Given BID KIRBY Hydralazine HCl 100 mg 04/09/25 08:30 04/12/25 10:47 Hydralazine Hcl 25 Mg Tablet PO 05/09/25 08:29 100 mg Q8H KIRBY Administration Ceftriaxone Sodium/Dextrose 1 gm in 50 mls @ 100 mls/hr 04/08/25 23:39 04/12/25 08:45 Rocephin/D5w 1gm Iv Premix IV 04/15/25 23:38 100 mls/hr QDAY KIRBY Administration Sodium Chloride 200 mls @ 100 mls/hr 04/12/25 13:09 Ns 0.45% IV 04/12/25 15:08 .Q2H ONE Losartan Potassium 25 mg 04/10/25 10:45 04/12/25 10:46 Losartan Potassium 25 Mg Tablet PO 05/10/25 10:44 25 mg QDAY KIRBY Administration Metoprolol Succinate 25 mg 04/13/25 09:00 Metoprolol Succinate Xl 25 Mg Tabcr PO 05/13/25 08:59 QDAY KIRBY Pantoprazole Sodium 40 mg 04/12/25 21:00 Pantoprazole 40 Mg Tablet PO 05/12/25 20:59 BID KIRBY Protocol Sennosides 1 tab 04/08/25 23:33 Senna Tablet PO 05/08/25 23:32 QDAY PRN constipation Protocol Plan Ms. Swartzl: 75F with chronic A-fib, s/p A-fib with RVR, sinus bradycardia, mild non-obstructive CAD on cath, mild CAP, GERD - overall stable, planned for discharge tomorrow. # A-Fib with RVR / Chronic A-Fib Converted to sinus rhythm after IV diltiazem. 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 CHADS?VASc = 4, HAS-BLED = 3. Cath: mild proximal RCA lesion (30%), tortuous LAD/LCX, no obstructive disease, normal EF. Plan: * Resume Eliquis 5 mg PO BID tomorrow * Start flecainide 100 mg BID per Cardiology * Restart metoprolol succinate 25 mg daily per Cardiology * Continue telemetry overnight * Discharge planned for tomorrow with Cardiology follow-up in 1 week # Sinus Bradycardia Tachy-daniel pattern, HR stable post-cath. Plan: * Restart low-dose metoprolol per Cardiology * Monitor for symptomatic bradycardia # Primary Hypertension BP stable on amlodipine, losartan, hydralazine. Plan: * Continue home BP meds * Monitor BP # Possible Community-acquired pneumonia Clinically improved, off O2 except brief overnight use, lungs clear. Plan: * Complete IV ceftriaxone + PO doxycycline * No new imaging needed # GERD Chest tightness likely reflux-related. Plan: * Continue pantoprazole daily # Normocytic anemia Stable. Plan: * Outpatient follow-up Health Maintenance: Disposition: Planned discharge tomorrow, Cardiology f/u in 1 week Diet: Cardiac diet Thromboprophylaxis: Resume Eliquis tomorrow GI prophylaxis: Pantoprazole continued for reflux Code status: Full ----- Plan discussed with attending physician Dr. Castellano and senior resident Dr. Barbi Ortega MD PGY-1 Internal Medicine Attending Provider Attestation/Addendum I attest that I was physically present for the evaluation, physical examination, lab and imaging review of the patient with the residents. I discussed the case with the residents and agree with the findings and plans of care as documented above. Patient underwent cardiac catheterization with cardiology, which was negative for significant obstructive coronary disease. We will resume her flecainide, Eliquis, metoprolol and monitor closely. Continues to be on antibiotics for possible community-acquired pneumonia. Anticipate discharge in 24 to 48 hours. Brian Castellano MD
--- NOTE | 2025-04-12 14:26 | PC.SS ---
Rounding note: patient will stay for monitoring, possible d/c tomorrow. D/c plan to return home.
[2025-04-12] MEDS: FLECAINIDE ACET 50 MG TABLET 100 MG PO (20:25)
[2025-04-12] MEDS: PANTOPRAZOLE 40 MG TABLET PO (20:26)
[2025-04-12] MEDS: DOXYCYCLINE 100 MG TABLET PO (20:26)
[2025-04-12] MEDS: LOTEPREDNOL 0.5% BOTH EYES (20:27)
[2025-04-13] VITALS (16 sets, daily range): BP systolic 115–167; BP diastolic 52–87; PULSE 60–84; RESP 12–22; TEMP 35.9–36.3; O2SAT 93–99; BMI 41.2
[2025-04-13] MEDS: ACETAMINOPHEN 325 MG TABLET 650 MG PO (05:58)
[2025-04-13 06:10] LABS: Basophils # (Auto) 0.0 Thou/mm3 (0.0-0.2); Basophils % (Auto) 1 % (0-2.5); Eosinophils # (Auto) 0.1 Thou/mm3 (0.0-0.5); Eosinophils % (Auto) 1 % (0-10); Hematocrit 36.2 % (36.0-46.0); Hemoglobin 12.0 g/dL (12.0-16.0); Immature Granulocytes Auto 0.03 Thou/mm3 (0.00-0.00); Lymphocytes # (Auto) 1.3 Thou/mm3 (1.0-4.8); Lymphocytes % (Auto) 17 % (10-50); Mean Corpuscular HGB Conc 33.1 g/dl (31.0-37.0); Mean Corpuscular Hemoglobin 29.3 pg (25.0-35.0); Mean Corpuscular Volume 88 fL (80-100); Monocytes # (Auto) 0.6 Thou/mm3 (0.0-0.8); Monocytes % (Auto) 8 % (0-12); Neutrophils # (Auto) 5.7 Thou/mm3 (1.8-7.7); Neutrophils % (Auto) 73 % (37-80); Nucleated Red Blood Cell # 0.00 Thou/mm3 (0.00-0.00); Nucleated Red Blood Cell % 0 /100 WBC (0); Platelet Count 207 Thou/mm3 (140-440); RDW Standard Deviation 44.3 fL (36.4-46.3); Red Blood Count 4.10 Miln/mm3 (4.00-5.20); White Blood Count 7.7 Thou/mm3 (3.6-11.0)
[2025-04-13 06:35] LABS: Alanine Aminotransferase 13 U/L (10-49); Albumin, Serum 4.2 gm/dL (3.4-4.8); Albumin/Globulin Ratio 1.7 (1.2-2.2); Alkaline Phosphatase 70 U/L (46-116); Anion Gap 10 (7-16); Aspartate Amino Transferase 44 U/L (0-34); BUN/Creatinine Ratio 14 Ratio (12-20); Bilirubin,Total 0.4 mg/dL (0.3-1.2); Blood Urea Nitrogen 17 mg/dL (9-23); Calcium 9.2 mg/dL (8.3-10.6); Calcium (Corrected) 9.2 mg/dL (8.5-10.1); Carbon Dioxide 26.7 mMol/L (20.0-31.0); Chloride 104 mMol/L (98-107); Creatinine (Component) 1.2 mg/dL (0.6-1.3); Estimated Creatinine Clearance 48.9 mL/min (>60); Globulin 2.5 gm/dL (2.3-3.5); Glucose 107 mg/dL (74-106); Magnesium 2.2 mg/dL (1.6-2.6); Osmolality,Calculated 282 (275-295); Phosphorous 4.2 mg/dL (2.4-5.1); Potassium 4.8 mMol/L (3.4-5.1); Sodium 141 mMol/L (136-145); Total Protein 6.7 gm/dL (5.7-8.2); eGFR 47 See Note
[2025-04-13] MEDS: LOTEPREDNOL 0.5% BOTH EYES (08:19)
[2025-04-13] MEDS: FLECAINIDE ACET 50 MG TABLET 100 MG PO ×2 (08:21→17:38)
[2025-04-13] MEDS: DOXYCYCLINE 100 MG TABLET PO ×2 (08:22→17:38)
[2025-04-13] MEDS: PANTOPRAZOLE 40 MG TABLET PO (08:22)
[2025-04-13] MEDS: METOPROLOL SUCCINATE XL 25 MG TABCR PO (08:22)
[2025-04-13] MEDS: LOSARTAN POTASSIUM 25 MG TABLET PO (08:23)
[2025-04-13] MEDS: cefTRIAXone/D5w 1gm IV premix 1 GM/50 ML BAG IV (08:24)
[2025-04-13] MEDS: APIXABAN 2.5 MG TABLET 5 MG PO (08:31)
--- NOTE | 2025-04-13 11:17 | PC.NURSE ---
Began oxygen test with patient. Pt O2 saturation 94 on 2 liters NC in bed. Removed Nasal Canula from patient. O2 drops to 86 and sustains in the 80's. Did not go further with test. Placed Nasal canula back on patient at 2 liters. O2 saturation 95.
[2025-04-13] MEDS: NASACORT NASAL (14:15)
--- NOTE | 2025-04-13 15:44 | PC.SS ---
Mattress Filling Machine Tender (DANIEL) Sarah met with patient to inform that O2 was ordered through [facility]. Patient confirmed address: [address] [place] [id number]. DANIEL notified Anthony.
--- NOTE | 2025-04-13 16:23 | ESPR_ITS ---
<Statement entered by Henny Wright MD - 04/14/25 18:10> I personally examined the patient evaluated patient underwent coronary angiogram yesterday showed evidence of mild CAD involving proximal RCA approximately 20% and also proximal LAD showed mild disease extreme tortuosity but clearly did not show significant obstructive CAD with a lot of corkscrew appearance of proximal circumflex as well with 360 terms but left ventricle function was normal. 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 Fab Cullen agree with the treatment plan recommendation as documented Documentation for date of: 04/13/25 Subjective Subjective Interval history: Patient is seen and examined at bedside. No acute overnight events Endorsed that she is still having chest discomfort. Right and left heart catheterization done yesterday did not show any significant CAD Vitals are stable and patient is on 1 L oxygen saturating around 97 to 98% Recommended to get sleep study followed by CPAP if needed, continue flecainide 100 Mg twice daily, metoprolol XL 25 Mg once daily Recommended to follow-up in outpatient basis within 1 week of discharge Exam Vital Signs Temp Pulse Resp BP Pulse Ox O2 Del Method O2 Flow Rate 97.4 F 84 12 129/74 94 L Nasal Cannula 2 04/13/25 12:00 04/13/25 12:00 04/13/25 12:00 04/13/25 12:00 04/13/25 12:00 04/13/25 12:00 04/13/25 12:00 Narrative Exam General: Awake. obese HEENT: Normocephalic, atraumatic, mucous membranes moist. Heart: Regular rate and rhythm, no murmurs. Lungs: Clear to auscultation with no wheezing or crackles. Abdomen: Soft, nondistended, nontender, positive bowel sounds. ?No guarding or rebound tenderness. Neurologic: Alert and oriented x3, no gross neurological deficit, and patient able to move all 4 extremities. Extremities: No edema. Skin: No rash or ecchymoses. Objective Labs 04/13/25 05:30 04/13/25 05:30 Labs: Laboratory Results - last 24 hr 04/13/25 05:30 WBC 7.7 RBC 4.10 Hgb 12.0 Hct 36.2 MCV 88 MCH 29.3 MCHC 33.1 RDW Std Deviation 44.3 Plt Count 207 Neut % (Auto) 73 Lymph % (Auto) 17 [place] % (Auto) 8 Eos % (Auto) 1 Baso % (Auto) 1 Neut # (Auto) 5.7 Lymph # (Auto) 1.3 [place] # (Auto) 0.6 Eos # (Auto) 0.1 Baso # (Auto) 0.0 Immature Gran # (Auto) 0.03 H Absolute Nucleated RBC 0.00 Immature Gran % 0 Nucleated RBC % 0 Sodium 141 Potassium 4.8 Chloride 104 Carbon Dioxide 26.7 Anion Gap 10 BUN 17 Creatinine 1.2 Estim Creat Clear Calc 48.9 L eGFR 47 L BUN/Creatinine Ratio 14 Glucose 107 H Calculated Osmolality 282 Calcium 9.2 Corrected Calcium 9.2 Phosphorus 4.2 Magnesium 2.2 Total Bilirubin 0.4 AST 44 H ALT 13 Alkaline Phosphatase 70 Total Protein 6.7 Albumin 4.2 Globulin 2.5 Albumin/Globulin Ratio 1.7 Quality Measures Quality Measures VTE prophylaxis (Eliquis 5 mg twice daily) Advance care planning discussed with:: patient Assessment & Plan Assessment Current Active Medications: Generic Name Dose Route Start Last Admin Trade Name Freq PRN Reason Stop Dose Admin Acetaminophen 650 mg 04/08/25 23:33 04/13/25 05:58 Acetaminophen 325 Mg Tablet PO 05/08/25 23:32 650 mg Q6H PRN Administration Pain 1-3 and/or Fever >100.1 Amlodipine Besylate 5 mg 04/09/25 09:00 04/13/25 08:21 Amlodipine Besylate 5 Mg Tablet PO 05/09/25 08:59 5 mg QDAY KIRBY Administration Apixaban 5 mg 04/13/25 09:00 04/13/25 08:31 Apixaban 2.5 Mg Tablet PO 05/13/25 08:59 5 mg BID KIRBY Administration Artificial Tears 0 drop 04/08/25 23:46 Artificial Tears 225 Drop/15 Ml Btl BOTH EYES 05/08/25 23:45 PRN PRN TO KEEP EYES MOIST Nasacort ( 0 ea 04/09/25 11:15 04/13/25 14:15 Triamcinolone NASAL 05/09/25 11:14 1 spray Acetonide Nasal DAILY KIRBY Administration [place] 55 Mcg) Loteprednol 0.5% 0 ea 04/09/25 21:00 04/13/25 08:19 Ophthalmic BOTH EYES 05/09/25 20:59 1 drops Suspension BID KIRBY Administration Doxycycline Hyclate 100 mg 04/09/25 09:00 04/13/25 08:22 Doxycycline 100 Mg Tablet PO 04/16/25 08:59 100 mg BID KIRBY Administration Flecainide Acetate 100 mg 04/10/25 21:00 04/13/25 08:21 Flecainide Acet 50 Mg Tablet PO 05/10/25 20:59 100 mg BID KIRBY Administration Hydralazine HCl 100 mg 04/09/25 08:30 04/13/25 08:20 Hydralazine Hcl 25 Mg Tablet PO 05/09/25 08:29 100 mg Q8H KIRBY Administration Ceftriaxone Sodium/Dextrose 1 gm in 50 mls @ 100 mls/hr 04/08/25 23:39 04/13/25 08:24 Rocephin/D5w 1gm Iv Premix IV 04/15/25 23:38 100 mls/hr QDAY KIRBY Administration Losartan Potassium 25 mg 04/10/25 10:45 04/13/25 08:23 Losartan Potassium 25 Mg Tablet PO 05/10/25 10:44 25 mg QDAY KIRBY Administration Metoprolol Succinate 25 mg 04/13/25 09:00 04/13/25 08:22 Metoprolol Succinate Xl 25 Mg Tabcr PO 05/13/25 08:59 25 mg QDAY KIRBY Administration Pantoprazole Sodium 40 mg 04/12/25 21:00 04/13/25 08:22 Pantoprazole 40 Mg Tablet PO 05/12/25 20:59 40 mg BID KIRBY Administration Protocol Sennosides 1 tab 04/08/25 23:33 Senna Tablet PO 05/08/25 23:32 QDAY PRN constipation Protocol Plan Ms. Eli 75-year-old female with past medical history of chronic atrial fibrillation, hypertension, history of DVT (right lower extremity) presenting to the ED complaining of palpitations. Patient is found to be A-fib with RVR on admission and was started on diltiazem drip. #A-Fib with CVR ---> normal sinus rhythm #Persistent atrial fibrillation #Sinus Bradycardia #Primary hypertension -Presented with chronic A-fib with rates in the 120's -Most likely cause is is elevated BP -Pt is on rate control agents at home (metoprolol XL) and has undergone 3 ablations. Pt is scheduled to get her fourth ablation with Dr. Mcfadden coming up in the next couple weeks -Currently hemodynamically stable and is sinus rhythm however Pt becomes bradycardic with rate controlled agents. [id number] score 4 , HAS-BLED 3 EKG: on admission (04/08) shows afib with RVR, rate of 125 EKG on 04/09 shows sinus bradycardia with rate of 57 Troponins <0.020 and BNP 127 Plan: -In the Ed pt was started of diltiazam ggt and pt converted to sinus rhythm and was turned off soon after. -TSH and FT4 are with in normal limits -Due to tachy-daniel in the setting of a-fib, pt may benefit from a pacemaker, as previously noted despite 3 ablations pt continues to go into A-fib RVR and then bradycardic -Recommended to continue flecainide 100 Mg twice daily, metoprolol XL 25 Mg once daily, Eliquis 5 mg twice daily -Continue amlodipine, losartan and hydralazine for BP control #Possible Community-acquired pneumonia #Normnocytic anemia management as per primary team Thank you for the consult and allowing us to participate in the care of the patient. Cardiology will continue to follow. Patient plan of care was discussed with Political Science Research Assistant, Dr. Kyle Cullen, PGY2
--- NOTE | 2025-04-13 17:21 | PD.HHDS ---
Planned Discharge Date 04/13/25 DS: Providers Provider Date of admission: 04/08/25 23:33 Primary care physician: Rohan Moran MD Admitting Provider: Miquel Figueroa MD Attending Provider on Admission: Brian Castellano MD Consults: 04/09/25 08:00 Referral Physical Therapy Routine Comment: Physician Instructions: 04/10/25 10:14 Consult to Cardiology Routine Comment: Consulting Provider: Henny Wright Attending Provider on DC: Brian Castellano MD Discharging Provider: Brian Castellano MD Diagnosis Problem List Completed Was Problem List Reviewed/Reconciled?: Yes Hospital Course - Hospitalist Hospital Course Hospital course: Patient is a 75 years old female with past medical history of chronic atrial fibrillation, hypertension, history of DVT who presented to the ED on 04/08/2025 with palpitations. She started having her symptoms around 5 PM and on the day of admission. She was sitting and relaxing when the episode began. Patient was found to be on A-fib with RVR along with community-acquired pneumonia and was admitted for the same. She was initially started on diltiazem drip and Eliquis. She was also started on IV Rocephin and doxycycline. Patient soon converted to sinus rhythm after diltiazem drip and was turned off. Next day, patient was found to have episodes of bradycardia with heart rate going down up to 57. Cardiology was consulted. Patient was started on flecainide along with Eliquis. She was also continued on her antihypertensives. She underwent cardiac catheterization with cardiology on 04/12/2025 which was negative for significant obstructive coronary artery disease. Patient continued to have mild chest discomfort, continued to need supplemental oxygen via nasal cannula. Antibiotics were continued, patient was also continued on pantoprazole as she has history of GERD. At bedside today, she states that she still has mild chest discomfort along with back pain. Trial of discontinuing supplemental oxygen was done, patient started desaturating and was resumed on supplemental oxygen. Explained to the patient that her symptoms might be related to GERD, ongoing pneumonia. Patient also has allergies, lungs appear hyperinflated on chest x-ray. Explained to the patient that she might benefit from pulmonary function test outpatient. Vital signs are stable. Saturating well on 2 L nasal cannula. Lab results are stable as well. Discussed with cardiology, agreed patient stable for discharge to home with supplemental oxygen, we will continue with amlodipine, flecainide, losartan, metoprolol and 2 more days of doxycycline. She is advised to follow-up with cardiology, art gallery director. She will also benefit from pulmonary function test if continues to have shortness of breath. # A-Fib with RVR / Chronic A-Fib # Sinus Bradycardia # Primary Hypertension # Possible Community-acquired pneumonia # GERD # Normocytic anemia Brian Castellano MD Time Spent with Patient Time attestation: Total time spent providing and/or coordinating discharge services: 28 minutes Time spent: Less than 30 minutes Discharge Results Labs Diagrams: 04/13/25 05:30 04/13/25 05:30 Labs: Short CBC 04/13/25 Range/Units 05:30 WBC 7.7 (3.6-11.0) Thou/mm3 Hgb 12.0 (12.0-16.0) g/dL Hct 36.2 (36.0-46.0) % Plt Count 207 (140-440) Thou/mm3 BMP 04/13/25 05:30 Sodium 141 Potassium 4.8 Chloride 104 Carbon Dioxide 26.7 BUN 17 Creatinine 1.2 Glucose 107 H Calcium 9.2 Liver Function 04/13/25 Range/Units 05:30 Total Bilirubin 0.4 (0.3-1.2) mg/dL AST 44 H (0-34) U/L ALT 13 (10-49) U/L Alkaline Phosphatase 70 (46-116) U/L Albumin 4.2 (3.4-4.8) gm/dL Exam Vital Signs Temp Pulse Resp BP Pulse Ox O2 Del Method O2 Flow Rate 97.4 F 73 12 136/64 H 94 L Nasal Cannula 2 04/13/25 12:00 04/13/25 17:08 04/13/25 12:00 04/13/25 17:04/13/25 12:00 04/13/25 12:04/13/25 12:00 Narrative General: awake and alert, appears comfortable, saturating well on nasal cannula CVS: Irregularly irregular rhythm, S1 and S2 heard without murmurs Pulm: Clear to auscultate bilaterally, no wheezing or crackles Abdomen: Soft, nontender, no organomegaly, bowel sound present Extremity: No edema, moving all limbs Neuro: Alert and oriented, no focal neurological deficit Discharge Plan Plan Patient Disposition: HOME (Self Care) Patient condition on transfer: Stable Care Plan Goals: You have been started on a new medication Flecainide 100 mg twice daily to manage your heart rhythm Cont amlodipine 5 mg, Eliquis 5 mg twice daily,losartan 25 mg once a day and metoprolol succinate 25 mg XL once a day Take all home medications prescribed Follow-up with your Primary doctor as outpatient within 2 weeks Please discuss with your Primary doctor regarding pulmonary function test if SOB is persistent Follow-up with your art gallery director as outpatient within 2 weeks Follow-up with your water resources project manager, Dr. Lindo as outpatient within 2 weeks In case of an emergency, call 911 or come back to the ED Prescriptions/Referrals Prescriptions/Med Rec: New famotidine 20 mg tablet 20 mg PO QDAY Qty: 30 0RF losartan 25 mg Tablet 25 mg PO QDAY Qty: 90 0RF amlodipine 5 mg Tablet 5 mg PO QDAY Qty: 90 0RF metoprolol succinate 25 mg Tablet Extended Release 24 Hr 25 mg PO QDAY Qty: 90 0RF flecainide 100 mg tablet 100 mg PO BID Qty: 90 0RF doxycycline hyclate 100 mg capsule 100 mg PO BID 2 Days Qty: 4 0RF Continued hydralazine 100 mg tablet 100 mg PO Q8H Patient Comments: TAKE 1 TABLET BY MOUTH TWICE A DAY WITH FOOD dexlansoprazole [Dexilant] 60 mg Capsule,Biphase Delayed Releas 60 mg PO QDAY Eliquis 5 mg tablet 5 mg PO BID Patient Comments: TAKE 1 TABLET BY MOUTH TWICE A DAY Multaq 400 mg tablet 400 mg PO BID Rx Instructions: must administer with a meal/food loteprednol etabonate 0.5 % drops,suspension 1 drp Both eyes BID Patient Comments: ADMINISTER 1 DROP INTO BOTH EYES THREE TIMES DAILY FOR 14 DAYS. Discontinued omeprazole 40 MG capsule,delayed release(DR/EC) 40 mg PO QDAY Qty: 0 amlodipine-olmesartan [Arthur] 5-40 mg Tablet 1 tab PO QDAY metoprolol succinate 50 mg tablet extended release 24 hr 50 mg PO HS Referrals: Rohan Moran MD [Primary Care Provider] - Patient/Caregiver Discharge Instructions Discharge Activity: activity as tolerated Education Materials: Controlling High Blood Pressure, Your Heart's Electrical System, Using Oxygen Safely, Using an Oxygen Tank at Home, Heart Disease Women, ED Allergy Seasonal (Belarusian) Print Language: Belarusian Stand Alone Forms: Rolanda Award Info., Patient Portal Info Letter Discharge Order Discharge Orders: Discharge (Routine); Ordered 04/13/25 Ordered By: Brian Castellano Quality Discharge Quality Measures VTE prophylaxis
== END 2025-04-13 20:06 | disposition home or self-care (01) | DRG 308 ==
LOC: SERX 23:37 → SERHOLD 23:52 → S2NX 04-09 01:24
PROVIDERS: Internal Medicine Cardiovascular Disease; Admitting Provider Student in an Organized Health Care Education/Training Program; Emergency Provider Emergency Medicine; PCP Family Medicine; Visit Provider Student in an Organized Health Care Education/Training Program
DX: I48.11 Longstanding persistent atrial fibrillation (principal); J18.9 Pneumonia, unspecified organism; J96.01 Acute respiratory failure with hypoxia; N17.9 Acute kidney failure, unspecified; Z79.01 Long term (current) use of anticoagulants; I10 Essential (primary) hypertension; Z86.718 Personal history of other venous thrombosis and embolism; D64.9 Anemia, unspecified; I25.10 Atherosclerotic heart disease of native coronary artery without angina pectoris; K21.9 Gastro-esophageal reflux disease without esophagitis; Z79.899 Other long term (current) drug therapy; Z90.710 Acquired absence of both cervix and uterus
CPT/HCPCS: 36415; 71045; 80053; 81001; 82248; 83735; 83880; 84100; 84439; 84443; 84484; 85025; 85379; 85610; 85730; 87400; 87811; 93005; 93306; 96365; 96366; 97162; 99152; 99153; 99285; A4649; C1769; C1887; C1894; J0461; J0696; J1643; J2250; J2310; J2371; J2405; J3010; J3475; J3490; J7120; Q9967; A9270; J2305

== ENCOUNTER → 2025-04-08 | Outpatient (CLI) | payer MEDICARE, SELFPAY ==
[2025-04-08 15:10] LABS: Collection Type, Urine Clean Catch
[2025-04-08 16:02] LABS: Bilirubin,Urine Negative (Negative); Blood,Urine Negative (Negative); Clarity,Urine Clear (Clear/Hazy); Color,Urine Lt-Yellow (Lt Yel-Yel); Glucose, Urine Negative (Negative); Ketones,Urine Negative (Negative); Leukocyte Esterase,Urine Positive (Negative); Nitrite,Urine Negative (Negative); PH,Urine 5.5 (5.0-7.0); Protein,Urine Negative (Neg - Trace); RBC,Urine 1 /hpf (0-3); Specific Gravity,Urine 1.014 (1.001-1.035); Squamous Epithelial Cell,Urine < 1 /hpf (0-5); Urobilinogen,Urine Negative mg/dL (0.0-1.0); WBC,Urine 2 /hpf (0-5)
[2025-04-08 16:23] LABS: Albumin, Serum 4.6 gm/dL (3.4-4.8); Anion Gap 11 (7-16); BUN/Creatinine Ratio 17 Ratio (12-20); Blood Urea Nitrogen 24 mg/dL (9-23); Calcium 9.4 mg/dL (8.3-10.6); Calcium (Corrected) 9.4 mg/dL (8.5-10.1); Carbon Dioxide 26.1 mMol/L (20.0-31.0); Chloride 108 mMol/L (98-107); Creatinine (Component) 1.4 mg/dL (0.6-1.3); Glucose 102 mg/dL (74-106); Osmolality,Calculated 292 (275-295); Phosphorous 4.0 mg/dL (2.4-5.1); Potassium 4.8 mMol/L (3.4-5.1); Sodium 145 mMol/L (136-145); eGFR 39 See Note
--- NOTE | 2025-04-12 13:55 | ESOP_ITS ---
RE: RENALDO CHRISTINE : 1950 DATE OF OPERATION: 04/12/2025 PROCEDURES PERFORMED: 1. Diagnostic left heart cardiac catheterization, selective coronary angiogram, and left ventricular angiogram, CPT 47162. 2. Conscious sedation, 30 minutes duration. 3. Ultrasound guided access, right radial artery. DIAGNOSES: Coronary artery disease, recurrent chest pain, unstable angina. HISTORY AND INDICATIONS: The patient is a 75-year-old with a history of hypertension , severe chest tightness, AFib with RVR back in sinus rhythm, who continued to have severe chest pain at rest. Coronary angiogram was recommended to assess the patient is a candidate for intervention. DESCRIPTION OF PROCEDURE: The patient was brought to cardiac catheterization laboratory where she was given 2 mg of Versed and 100 mcg of fentanyl for sedation. Right radial approach was taken. Right radial artery was cannulated by micropuncture technique. A 5-[place] was introduced. Radial cocktail was given. Selective right coronary angiogram was performed by TIG-4 diagnostic catheter. Left coronary angiogram was performed by TIG-4 diagnostic catheter. Multiple views were obtained and left heart catheterization and left ventricular angiogram were performed by using TIG-4 diagnostic catheter. TR band was applied. Hemostasis was secured. Cardiac catheterization showed following findings. Hemodynamics: Left ventricular pressure is 120/10. EDP is 12. Aortic pressure is 120/86. No gradient across the aortic valve. Left ventricular angiogram showed evidence of normal left ventricular wall motion, ejection fraction is 70%. Coronary angiogram showed following findings. Right coronary artery is large and dominant, appeared to show no significant obstructive disease. Proximal right coronary artery showed 30% stenosis . Left coronary system: Left main coronary artery is normal. Left anterior descending artery showed extreme tortuosity, corkscrew appearance, and lot of overlapping of the vessels, but the proximal LAD appears to be normal with mild plaque seen. Circumflex artery gives off one large obtuse marginal branch, tortuosity and appears normal. SUMMARY OF FINDINGS: 1. Mild coronary artery disease involving the proximal RCA, 30% lesion. 2. Markedly tortuous left anterior descending artery and circumflex arteries, nonobstructive epicardial coronary arteries. 3. Normal left ventricular function. RECOMMENDATIONS: The patient was reassured about the absence of significant obstructive coronary artery disease. She does have a history of gastroesophageal reflux. Her chest tightness could be due to acid reflux. Recommend to continue pantoprazole. The patient can be discharged home tomorrow on flecainide 100 mg twice daily, beta-fanny, metoprolol succinate 50 mg daily, and rest of the medications. I will see her for followup in 1 week. DT: 13:20:45 TT: 13:54:00 Ref: [id number] - TID: [id number] MTDD
== END | disposition home or self-care (01) ==
PROVIDERS: PCP Family Medicine; Referring Provider Internal Medicine; Visit Provider Internal Medicine
DX: N17.9 Acute kidney failure, unspecified (principal)
CPT/HCPCS: 36415; 80069; 81001

== ENCOUNTER → 2025-04-24 | Outpatient (CLI) | payer MEDICARE, SELFPAY ==
--- NOTE | 2025-04-24 16:52 | XR_ITS ---
Examination: Lumbar spine, 5 views Technique: Lumbar spine AP, lateral, coned lateral lower lumbar spine, bilateral obliques 5 views Exam date and time: April 24, 2025 1700 hours Comparison July 23, 2020 INDICATIONS: Low back pain beginning one month ago FINDINGS: Grade 1 anterolisthesis of L4 on L5 Moderate to advanced diffuse lumbar degenerative disease, most severe at L2-L3, L5-S1 Prominent facet arthropathy No lumbar fracture Intact pedicles IMPRESSION: Moderate to advanced diffuse lumbar degenerative disc disease with severe spinal stenosis
== END | disposition home or self-care (01) ==
PROVIDERS: PCP Family Medicine; Referring Provider Family Medicine; Visit Provider Family Medicine
DX: M51.360 Other intervertebral disc degeneration, lumbar region with discogenic back pain only (principal); M48.061 Spinal stenosis, lumbar region without neurogenic claudication
CPT/HCPCS: 72110

== ENCOUNTER → 2025-07-08 | Outpatient (CLI) | payer MEDICARE, SELFPAY ==
[2025-07-08 09:46] LABS: Anion Gap 10 (7-16); BUN/Creatinine Ratio 15 Ratio (12-20); Blood Urea Nitrogen 18 mg/dL (9-23); Calcium 9.9 mg/dL (8.3-10.6); Carbon Dioxide 27.3 mMol/L (20.0-31.0); Chloride 106 mMol/L (98-107); Creatinine (Component) 1.2 mg/dL (0.6-1.3); Glucose 120 mg/dL (74-106); Osmolality,Calculated 287 (275-295); Potassium 5.0 mMol/L (3.4-5.1); Sodium 143 mMol/L (136-145); eGFR 47 See Note
== END | disposition home or self-care (01) ==
PROVIDERS: PCP Nurse Practitioner Family; Referring Provider Nurse Practitioner Family; Visit Provider Nurse Practitioner Family
DX: E66.812 Obesity, class 2 (principal)
CPT/HCPCS: 36415; 80048

== ENCOUNTER → 2025-07-09 | Outpatient (CLI) | payer MEDICARE, SELFPAY ==
[2025-07-09 16:56] LABS: D-Dimer < 250 ng/mL (<600)
== END | disposition home or self-care (01) ==
LOC: COPL 15:00
PROVIDERS: PCP Family Medicine; Referring Provider Family Medicine; Visit Provider Family Medicine
DX: M67.461 Ganglion, right knee (principal)
CPT/HCPCS: 36415; 85379

== ENCOUNTER → 2025-08-12 | Outpatient (CLI) | payer MEDICARE, SELFPAY ==
--- NOTE | 2025-08-12 14:59 | XR_ITS ---
EXAMINATION: PA lateral chest 2 views TECHNIQUE: Upright PA lateral chest 2 views Date and time: August 12, 2025, 1529 hours INDICATIONS: History of left lung pneumonia 10 days ago. FINDINGS: Improvement with partial clearing left base pneumonia Normal heart size Prominent osteopenia IMPRESSION: Partial clearing left lung pneumonia
== END | disposition home or self-care (01) ==
LOC: CDIM 14:56
PROVIDERS: PCP Family Medicine; Referring Provider Nurse Practitioner Family; Visit Provider Nurse Practitioner Family
DX: J18.9 Pneumonia, unspecified organism (principal)
CPT/HCPCS: 71046

== ENCOUNTER → 2025-09-20 | Outpatient (CLI) | payer MEDICARE, SELFPAY ==
[2025-09-20 14:34] LABS: Albumin, Serum 4.8 gm/dL (3.4-4.8); Anion Gap 11 (7-16); BUN/Creatinine Ratio 21 Ratio (12-20); Blood Urea Nitrogen 25 mg/dL (9-23); Calcium 9.4 mg/dL (8.3-10.6); Calcium (Corrected) 9.4 mg/dL (8.5-10.1); Carbon Dioxide 25.7 mMol/L (20.0-31.0); Chloride 107 mMol/L (98-107); Creatinine (Component) 1.2 mg/dL (0.6-1.3); Glucose 114 mg/dL (74-106); Osmolality,Calculated 292 (275-295); Phosphorous 3.7 mg/dL (2.4-5.1); Potassium 4.2 mMol/L (3.4-5.1); Sodium 144 mMol/L (136-145); eGFR 47 See Note
== END | disposition home or self-care (01) ==
LOC: COPL 13:39
PROVIDERS: PCP Family Medicine
DX: R00.2 Palpitations (principal)
CPT/HCPCS: 36415; 80069